=== PATIENT | male | born 1950 | race African-American/Black ===

== ENCOUNTER 2019-06-16 17:41 | Emergency (ER) | payer OTHER, MEDICARE ==
[2019-06-16 18:55] VITALS: RESP 18; TEMP 97.5
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
[2019-06-16 20:09] VITALS: BP 169/86; PULSE 89
--- NOTE | 2019-06-16 20:19 | XR ---
EXAMINATION TYPE: XR chest 2V DATE OF EXAM: 06/16/2019 COMPARISON: NONE HISTORY: Chest pain TECHNIQUE: FINDINGS: Heart and mediastinum are normal. Lungs are clear of infiltrate. There is no heart failure. There are no hilar masses. Costophrenic angles are clear. Bony thorax is intact. IMPRESSION: No active cardiopulmonary disease.
--- NOTE | 2019-06-16 20:21 | XR ---
EXAMINATION TYPE: XR foot complete RT DATE OF EXAM: 06/16/2019 COMPARISON: NONE HISTORY: Foot pain TECHNIQUE: 3 views FINDINGS: Metatarsals are intact. I see no fracture nor dislocation. Joint spaces are normal. There i s small plantar calcaneal spur. IMPRESSION: Negative right foot exam.
[2019-06-16] MEDS ORDERED: IBUPROFEN 800 MG TAB PO STA (20:46)
== END 2019-06-16 21:03 | disposition home or self-care (01) ==
LOC: EC 17:41
DX: S20.219A Contusion of unspecified front wall of thorax, initial encounter (principal); S90.31XA Contusion of right foot, initial encounter; F17.200 Nicotine dependence, unspecified, uncomplicated; R40.2410 Glasgow coma scale score 13-15, unspecified time; Z88.8 Allergy status to other drugs, medicaments and biological substances; Z98.890 Other specified postprocedural states; V47.5XXA Car driver injured in collision with fixed or stationary object in traffic accident, initial encounter; Y92.410 Unspecified street and highway as the place of occurrence of the external cause
CPT/HCPCS: 71046; 99284

== ENCOUNTER 2019-06-17 21:54 | Emergency (ER) | payer MEDICARE, OTHER ==
[2019-06-17] MEDS ORDERED: LORazepam 2 MG/ML INJ IM STA (22:52)
--- NOTE | 2019-06-17 22:54 | ED ---
Psych HPI <Jordan Hansen - Last Filed: 06/18/19 03:20> - General Source: patient, police, RN notes reviewed, old records reviewed Mode of arrival: ambulatory Limitations: altered mental status - History of Present Illness MD Complaint: altered mental status -: unknown Associated Psychiatric Symptoms: racing thoughts History of same: Yes Quality: constant, getting worse Improves With: medication (Patient is not taking his medications) Worsens With: none Context: not taking psychiatric medications Associated Symptoms: denies other symptoms Treatments Prior to Arrival: placed on mental health hold <Uri Singh - Last Filed: 06/20/19 00:10> - General Chief Complaint: Psychiatric Symptoms 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 Patient is unable to give accurate history currently. History obtained from EMS as well as PD and patient's chart (Uri Singh) - Related Data Home Medications Medication Instructions Recorded Confirmed Benztropine Mesylate [Cogentin] 1 mg PO BID 06/18/19 06/18/19 Fluphenazine HCl [fluPHENAZine HCL] 10 mg PO DAILY 06/18/19 06/18/19 Losartan [Cozaar] 50 mg PO DAILY 06/18/19 06/18/19 Metoprolol Tartrate [Lopressor] 25 mg PO DAILY 06/18/19 06/18/19 Nicotine Polacrilex [Nicotine Gum] 4 mg BUCCAL DIRECTED PRN 06/18/19 06/18/19 QUEtiapine [SEROquel] 400 mg PO HS 06/18/19 06/18/19 amLODIPine [Norvasc] 10 mg PO DAILY 06/18/19 06/18/19 Allergies Allergy/AdvReac Type Severity Reaction Status Date / Time chlorpromazine Allergy Hallucinati Verified 06/18/19 11:20 [From Thorazine] ons molindone [From Moban] Allergy Rash/Hives Verified 06/18/19 11:20 Review of Systems ROS Other: All systems not noted in ROS Statement are negative. <Jordan Hansen - Last Filed: 06/18/19 03:20> ROS Other: All systems not noted in ROS Statement are negative. <Uri Singh - Last Filed: 06/20/19 00:10> ROS Statement: Those systems with pertinent positive or pertinent negative responses have been documented in the HPI. Past Medical History Past Medical History: Hypertension History of Any Multi-Drug Resistant Organisms: None Reported Past Surgical History: Heart Catheterization Past Psychological History: No Psychological Hx Reported Smoking Status: Current every day smoker Past Alcohol Use History: None Reported Past Drug Use History: None Reported <Uri Singh - Last Filed: 06/20/19 00:10> General Exam Limitations: altered mental status General appearance: alert, in no apparent distress Head exam: Present: atraumatic, normocephalic, normal inspection Eye exam: Present: normal appearance, PERRL, EOMI. Absent: scleral icterus, conjunctival injection, periorbital swelling ENT exam: Present: normal exam, mucous membranes moist Neck exam: Present: normal inspection. Absent: tenderness, meningismus, lymphadenopathy Respiratory exam: Present: normal lung sounds bilaterally. Absent: respiratory distress, wheezes, rales, rhonchi, stridor Cardiovascular Exam: Present: regular rate, normal rhythm, normal heart sounds. Absent: systolic murmur, diastolic murmur, rubs, gallop, clicks GI/Abdominal exam: Present: soft, normal bowel sounds. Absent: distended, tenderness, guarding, rebound, rigid Extremities exam: Present: normal inspection, full ROM, normal capillary refill. Absent: tenderness, pedal edema, joint swelling, calf tenderness Back exam: Present: normal inspection Neurological exam: Present: alert, oriented X3, CN II-XII intact Psychiatric exam: Present: normal affect, normal mood Skin exam: Present: warm, dry, intact, normal color. Absent: rash <Uri Singh - Last Filed: 06/20/19 00:10> Course <Uri Singh - Last Filed: 06/20/19 00:10> Vital Signs 06/17/19 06/18/19 06/18/19 22:03 02:30 09:00 Temperature 98.1 F 98.0 F Pulse Rate 79 63 60 Respiratory 18 16 18 Rate Blood Pressure 179/97 150/85 152/79 O2 Sat by Pulse 100 96 99 Oximetry 06/18/19 06/18/19 12:21 18:04 Temperature 98.2 F 98.4 F Pulse Rate 67 68 Respiratory 18 18 Rate Blood Pressure 160/84 160/84 O2 Sat by Pulse 98 98 Oximetry - Reevaluation(s) Reevaluation #1: 06/17/19 22:54 Medical records reviewed including ER visit yesterday (Uri Singh) Reevaluation #2: 06/17/19 22:54 Patient's medical clear for psychiatric evaluation (Uir Singh) Medical Decision Making - Lab Data Result diagrams: 06/18/19 02:27 06/18/19 02:27 <Jordan Hansen - Last Filed: 06/18/19 03:20> - Lab Data Result diagrams: 06/18/19 02:27 06/18/19 02:27 <Uri Singh - Last Filed: 06/20/19 00:10> - Medical Decision Making I did see the patient for purposes of following the clinical certification (Jordan Hansen) - Lab Data Lab Results 06/18/19 06/18/19 06/18/19 Range/Units 02:27 02:27 02:27 WBC 11.0 H (3.8-10.6) k/uL RBC 4.26 L (4.30-5.90) m/uL Hgb 13.2 (13.0-17.5) gm/dL Hct 40.4 (39.0-53.0) % MCV 94.9 (80.0-100.0) fL MCH 31.0 (25.0-35.0) pg MCHC 32.7 (31.0-37.0) g/dL RDW 13.6 (11.5-15.5) % Plt Count 190 (150-450) k/uL Neutrophils % 68 % Lymphocytes % 24 % Monocytes % 3 % Eosinophils % 4 % Basophils % 0 % Neutrophils # 7.5 (1.3-7.7) k/uL Lymphocytes # 2.6 (1.0-4.8) k/uL Monocytes # 0.3 (0-1.0) k/uL Eosinophils # 0.4 (0-0.7) k/uL Basophils # 0.0 (0-0.2) k/uL Sodium 137 (137-145) mmol/L Potassium 4.1 (3.5-5.1) mmol/L Chloride 107 (98-107) mmol/L Carbon Dioxide 24 (22-30) mmol/L Anion Gap 6 mmol/L BUN 14 (9-20) mg/dL Creatinine 0.82 (0.66-1.25) mg/dL Est GFR (CKD-EPI)AfAm >90 (>60 ml/min/1.73 sqM) Est GFR (CKD-EPI)NonAf >90 (>60 ml/min/1.73 sqM) Glucose 78 (74-99) mg/dL Calcium 9.5 (8.4-10.2) mg/dL Urine Opiates Screen Not Detected (NotDetected) Ur Oxycodone Screen Not Detected (NotDetected) Urine Methadone Screen Not Detected (NotDetected) Ur Propoxyphene Screen Not Detected (NotDetected) Ur Barbiturates Screen Not Detected (NotDetected) U Tricyclic Antidepress Not Detected (NotDetected) Ur Phencyclidine Scrn Not Detected (NotDetected) Ur Amphetamines Screen Not Detected (NotDetected) U Methamphetamines Scrn Not Detected (NotDetected) U Benzodiazepines Scrn Not Detected (NotDetected) Urine Cocaine Screen Not Detected (NotDetected) U Marijuana (THC) Screen Detected H (NotDetected) Serum Alcohol <10 mg/dL Disposition <Jordan Hansen - Last Filed: 06/18/19 03:20> Is patient prescribed a controlled substance at d/c from ED?: No <Uri Singh - Last Filed: 06/20/19 00:10> Clinical Impression: Acute anxiety, Depression, Suicidal ideation Disposition: TRANSFER TO PSYCH HOSP/UNIT Condition: Fair Referrals: Leonard Herndon MD [Primary Care Provider] - 1-2 days
[2019-06-17] MEDS ORDERED: diphenhydrAMINE 50 MG CAP PO STA (23:31)
[2019-06-18 02:42] LABS: Basophils % (A) 0 %; Eosinophils # (A) 0.4 k/uL (0-0.7); Eosinophils % (A) 4 %; HCT 40.4 % (39.0-53.0); HGB 13.2 gm/dL (13.0-17.5); Lymphocytes # (A) 2.6 k/uL (1.0-4.8); Lymphocytes % (A) 24 %; MCHC 32.7 g/dL (31.0-37.0); MCV 94.9 fL (80.0-100.0); Mean Platelet Volume 7.9; Monocytes # (A) 0.3 k/uL (0-1.0); Monocytes % (A) 3 %; Neutrophils # (A) 7.5 k/uL (1.3-7.7); Neutrophils % (A) 68 %; Platelet Count 190 k/uL (150-450); RBC 4.26 m/uL (4.30-5.90); RDW 13.6 % (11.5-15.5)
[2019-06-18 02:56] LABS: African American GFR (CKD) >90 (>60 ml/min/1.73 sqM); Alcohol <10 mg/dL; Anion Gap 6 mmol/L; Blood Urea Nitrogen 14 mg/dL (9-20); Calcium 9.5 mg/dL (8.4-10.2); Carbon Dioxide 24 mmol/L (22-30); Chloride 107 mmol/L (98-107); Glucose 78 mg/dL (74-99); Non-African American GFR(CKD) >90 (>60 ml/min/1.73 sqM); Potassium 4.1 mmol/L (3.5-5.1); Sodium 137 mmol/L (137-145)
[2019-06-18 02:58] LABS: Amphetamine Screen,Urine Not Detected (NotDetected); Benzodiazepines Screen,Urine Not Detected (NotDetected); Cocaine Screen,Urine Not Detected (NotDetected); Methadone Screen, Urine Not Detected (NotDetected); Opiate Screen,Urine Not Detected (NotDetected); Phencyclidine Screen,Urine Not Detected (NotDetected); Tricyclic Antidepressant,Urine Not Detected (NotDetected)
[2019-06-18 02:59] LABS: Barbiturate Screen,Urine Not Detected (NotDetected); Oxycodone Screen, Urine Not Detected (NotDetected); Urn Cannabinoid Scrn Detected (NotDetected)
[2019-06-18] MEDS ORDERED: LORazepam 2 MG/ML INJ IV STA ×2 (03:54→07:21)
[2019-06-18] MEDS ORDERED: HALOPERIDOL LACTATE 5 MG/ML 1 ML VIAL IM STA (04:18)
[2019-06-18 09:04] VITALS: RESP 18
[2019-06-18 12:23] VITALS: BP 160/84
[2019-06-18] MEDS ORDERED: NICOTINE 14MG/24HR PATCH TRANSDERM STA (12:24)
[2019-06-18 18:05] VITALS: PULSE 68; TEMP 98.4
== END 2019-06-18 18:04 ==
LOC: EC 21:54
DX: F32.9 Major depressive disorder, single episode, unspecified (principal); R45.851 Suicidal ideations; F41.9 Anxiety disorder, unspecified; I10 Essential (primary) hypertension; F17.200 Nicotine dependence, unspecified, uncomplicated; Z79.899 Other long term (current) drug therapy; Z88.8 Allergy status to other drugs, medicaments and biological substances; Z95.1 Presence of aortocoronary bypass graft
CPT/HCPCS: 82075; 36415; 80048; 85025; 80306; 99285; 96374; 96372 ×2; G0480; S4990; J2060 ×2; J1630; 80320

== ENCOUNTER 2019-12-21 20:25 | Inpatient (IN) | payer MEDICARE, OTHER ==
--- NOTE | 2019-12-21 20:41 | ED ---
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 please excuse any grammatical, word or spelling errors. This patient was cared for during a federal and state declared state of emergen cy secondary to Covid 19 Chief Complaint: 69-year-old male presents for psychiatric evaluation. History of Present Illness: 69-year-old male who has past medical history of hypertension. He is brought in here by law enforcement. There was a pickup order that was repaired by family members. According to hand picker order patient has been displaying aggressive behavior. He is also been refusing to take his medications and take care of himself. According to hand picker order patient hasn't been showering. He hasn't been eating. Patient is uncooperative and unwilling to provide history present illness. Continually states that he disagrees with what is stated on the pickup order. Patient has no complaints at this time. The ROS documented in this emergency department record has been reviewed and confirmed by me. Those systems with pertinent positive or negative responses have been documented in the HPI. All other systems are other negative and/or noncontributory. PHYSICAL EXAM: General Impression: Alert and oriented x3, speaking w loud voice, aggressive HEENT: Normocephalic atraumatic, extra-ocular movements intact, pupils equal and reactive to light bilaterally, mucous membranes moist. Cardiovascular: Heart regular rate and rhythm Chest: Able to complete full sentences, no retractions, no tachypnea Abdomen: abdomen soft, non-tender, non-distended, no organomegaly Musculoskeletal: Pulses present and equal in all extremities, no peripheral edema Motor: no focal deficits noted Neurological: CN II-XII grossly intact, no focal motor or sensory deficits noted Skin: Intact with no visualized rashes Psych: Normal affect and mood ED course: 69-year-old male presents with abnormal behavior. Patient has not been taking care of himself. Patient is brought in by law enforcement for psychiatric evaluation. Vital signs upon arrival are within acceptable limits. CBC is unremarkable. Metabolic panel shows non-gap acidosis. Patient care signed out to Dr. Armstrong. EKG interpretation: Ventricular rate 85, sinus rhythm, IN interval 226, QRS 86, QTC 421. No IN prolongation, no QTC prolongation, no ST or T-wave changes noted. Overall, this EKG is unremarkable (Gold Fenton) - Related Data Home Medications Medication Instructions Recorded Confirmed Losartan [Cozaar] 50 mg PO DAILY 06/18/19 12/21/19 Metoprolol Tartrate [Lopressor] 25 mg PO DAILY 06/18/19 12/21/19 amLODIPine [Norvasc] 10 mg PO DAILY 06/18/19 12/21/19 [place] Carbonate 600 mg PO BID 12/21/19 12/21/19 Allergies Allergy/AdvReac Type Severity Reaction Status Date / Time chlorpromazine Allergy Hallucinati Verified 12/21/19 22:17 [From Thorazine] ons molindone [From Moban] Allergy Rash/Hives Verified 12/21/19 22:17 Review of Systems ROS Other: All systems not noted in ROS Statement are negative. <Gold Fenton - Last Filed: 12/21/19 22:34> ROS Other: All systems not noted in ROS Statement are negative. <Marisol Armstrong - Last Filed: 12/23/19 05:58> ROS Statement: Those systems with pertinent positive or pertinent negative responses have been documented in the HPI. Past Medical History Past Medical History: Hypertension History of Any Multi-Drug Resistant Organisms: None Reported Past Surgical History: Heart Catheterization Past Psychological History: No Psychological Hx Reported Past Alcohol Use History: None Reported Past Drug Use History: None Reported <Gold Fenton - Last Filed: 12/21/19 22:34> - Past Family History Family Family Medical History: Unable to Obtain <Marisol Armstrong - Last Filed: 12/23/19 05:58> Course Vital Signs 12/21/19 12/22/19 12/22/19 20:28 01:53 06:50 Temperature 98.0 F Pulse Rate 83 70 66 Respiratory 18 18 18 Rate Blood Pressure 153/91 159/82 118/60 O2 Sat by Pulse 99 95 98 Oximetry 12/22/19 11:16 Temperature Pulse Rate 82 Respiratory 16 Rate Blood Pressure 155/95 O2 Sat by Pulse 99 Oximetry Medical Decision Making - Lab Data Result diagrams: 12/21/19 21:30 12/21/19 20:57 <Gold Fenton - Last Filed: 12/21/19 22:34> - Lab Data Result diagrams: 12/21/19 21:30 12/21/19 20:57 <Marisol Armstrong - Last Filed: 12/23/19 05:58> - Medical Decision Making Patient care was signed out to ok overnight, patient was agitated in the evening and received PO ativan, he then slept comfortably overnight. His oral hypertensives and a normal diet were ordered. Patient pending transfer to [facility] for further psychiatric care. (Marisol Armstrong) - Lab Data Lab Results 12/21/19 12/21/19 12/21/19 Range/Units 20:57 20:57 21:30 WBC 10.2 (3.8-10.6) k/uL RBC 4.39 (4.30-5.90) m/uL Hgb 13.7 (13.0-17.5) gm/dL Hct 42.4 (39.0-53.0) % MCV 96.6 (80.0-100.0) fL MCH 31.2 (25.0-35.0) pg MCHC 32.3 (31.0-37.0) g/dL RDW 13.4 (11.5-15.5) % Plt Count 194 (150-450) k/uL Neutrophils % 63 % Lymphocytes % 28 % Monocytes % 3 % Eosinophils % 4 % Basophils % 0 % Neutrophils # 6.5 (1.3-7.7) k/uL Lymphocytes # 2.8 (1.0-4.8) k/uL Monocytes # 0.3 (0-1.0) k/uL Eosinophils # 0.4 (0-0.7) k/uL Basophils # 0.0 (0-0.2) k/uL Sodium 137 (137-145) mmol/L Potassium 3.6 (3.5-5.1) mmol/L Chloride 109 H (98-107) mmol/L Carbon Dioxide 18 L (22-30) mmol/L Anion Gap 10 mmol/L BUN 8 L (9-20) mg/dL Creatinine 0.74 (0.66-1.25) mg/dL Est GFR (CKD-EPI)AfAm >90 (>60 ml/min/1.73 sqM) Est GFR (CKD-EPI)NonAf >90 (>60 ml/min/1.73 sqM) Glucose 110 H (74-99) mg/dL Calcium 9.7 (8.4-10.2) mg/dL Urine Opiates Screen Negative (Negative) ng/mL Urine Methadone Screen Negative (Negative) ng/mL Ur Propoxyphene Screen Negative (Negative) ng/mL Urine Barbiturates Negative (Negative) ng/mL Ur Phencyclidine Scrn Negative (Negative) ng/mL Ur Amphetamine Screen Negative (Negative) ng/mL U Benzodiazepines Scrn Negative (Negative) ng/mL Urine Cocaine Screen Negative (Negative) ng/mL U Cannabinoids Screen Negative (Negative) ng/mL Urine Alcohol Negative (Negative) mg/dL Disposition <Gold Fenton D - Last Filed: 12/21/19 22:34> Is patient prescribed a controlled substance at d/c from ED?: No <Marisol Armstrong P - Last Filed: 12/23/19 05:58> Clinical Impression: Psychosis Disposition: TRANSFER TO PSYCH HOSP/UNIT Condition: Stable
[2019-12-21 21:25] LABS: African American GFR (CKD) >90 (>60 ml/min/1.73 sqM); Anion Gap 10 mmol/L; Blood Urea Nitrogen 8 mg/dL (9-20); Calcium 9.7 mg/dL (8.4-10.2); Carbon Dioxide 18 mmol/L (22-30); Chloride 109 mmol/L (98-107); Glucose 110 mg/dL (74-99); Non-African American GFR(CKD) >90 (>60 ml/min/1.73 sqM); Potassium 3.6 mmol/L (3.5-5.1); Sodium 137 mmol/L (137-145)
[2019-12-21 21:39] LABS: Basophils % (A) 0 %; Eosinophils # (A) 0.4 k/uL (0-0.7); Eosinophils % (A) 4 %; HCT 42.4 % (39.0-53.0); HGB 13.7 gm/dL (13.0-17.5); Lymphocytes # (A) 2.8 k/uL (1.0-4.8); Lymphocytes % (A) 28 %; MCH 31.2 pg (25.0-35.0); MCHC 32.3 g/dL (31.0-37.0); MCV 96.6 fL (80.0-100.0); Mean Platelet Volume 7.4; Monocytes # (A) 0.3 k/uL (0-1.0); Monocytes % (A) 3 %; Neutrophils # (A) 6.5 k/uL (1.3-7.7); Neutrophils % (A) 63 %; Platelet Count 194 k/uL (150-450); RBC 4.39 m/uL (4.30-5.90); RDW 13.4 % (11.5-15.5); WBC 10.2 k/uL (3.8-10.6)
--- NOTE | 2019-12-21 22:55 | CT ---
EXAMINATION TYPE: CT brain wo con DATE OF EXAM: 12/21/2019 COMPARISON: None HISTORY: ams CT DLP: 1276.4 mGycm Automated exposure control for dose reduction was used. Exam performed without contrast. Ventricles have normal size. There is no mass effect nor midline shift. There is no sign of intracran ial hemorrhage. The calvarium is intact. There is mild cerebral atrophy. Sella turcica appears normal . IMPRESSION: Mild atrophy. No acute intracranial abnormality.
[2019-12-22] MEDS ORDERED: LORazepam 1 MG TAB PO STA ×2 (01:13→10:20)
[2019-12-22] MEDS: LOSARTAN 50 MG TAB PO SCH (08:00)
[2019-12-22] MEDS: METOPROLOL TARTRATE 25 MG TAB PO SCH (08:01)
[2019-12-22] MEDS: amLODIPine 10 MG TAB PO SCH (08:01)
[2019-12-22] MEDS ORDERED: ZIPRASIDONE 20 MG VIAL IM STA (10:58)
[2019-12-22 11:42] LABS: Urine Alcohol Negative (Negative); Urine Barbiturate Negative (Negative); Urine Cocaine Negative (Negative); Urine Methadone Negative (Negative); Urine Opiates Negative (Negative); Urine Phencyclidine Negative (Negative)
[2019-12-22] MEDS ORDERED: ZIPRASIDONE 20 MG VIAL IM PRN (21:14)
[2019-12-22] MEDS ORDERED: MAGNESIUM HYDROXIDE 2,400 MG/10 ML CUP PO PRN (21:14)
[2019-12-22] MEDS ORDERED: MAG HYDROX/AL HYDROX/SIMETH 30 ML CUP PO PRN (21:14)
[2019-12-22] MEDS ORDERED: LORazepam 1 MG TAB PO PRN (21:14)
[2019-12-22] MEDS ORDERED: ACETAMINOPHEN TAB 325 MG TAB PO PRN (21:14)
[2019-12-22] MEDS ORDERED: LORazepam 2 MG/ML INJ IM PRN (21:17)
--- NOTE | 2019-12-22 23:42 | P.MDCNMH ---
History of Present Illness H&P Date: 12/22/19 Chief Complaint: medical evaluation 69-year-old male with hypertension Patient was brought to the patient by his family police brought the patient and due to being uncooperative not taking his medication poor hygiene status not showering not taking care of himself. He was also reports to be showing aggressive behavior Patient is very hard of hearing. He told me that he has hypertension he takes his medication he was pleasant and cooperative during the interview however he didn't say much he just answered direct questions denying any physical complaints at this time he kept his head down did not make any eye contact with me during the whole interview Review of Systems ROS unobtainable: due to mental status Past Medical History Past Medical History: Hypertension History of Any Multi-Drug Resistant Organisms: None Reported Past Surgical History: Heart Catheterization Past Psychological History: No Psychological Hx Reported Past Alcohol Use History: None Reported Past Drug Use History: None Reported - Past Family History Family Family Medical History: Unable to Obtain Medications and Allergies Home Medications Medication Instructions Recorded Confirmed Type Losartan [Cozaar] 50 mg PO DAILY 06/18/19 12/21/19 History Metoprolol Tartrate [Lopressor] 25 mg PO DAILY 06/18/19 12/21/19 History amLODIPine [Norvasc] 10 mg PO DAILY 06/18/19 12/21/19 History [place] Carbonate 600 mg PO BID 12/21/19 12/21/19 History Allergies Allergy/AdvReac Type Severity Reaction Status Date / Time chlorpromazine Allergy Hallucinati Verified 12/21/19 22:17 [From Thorazine] ons molindone [From Moban] Allergy Rash/Hives Verified 12/21/19 22:17 Physical Exam Vitals: Vital Signs Temp Pulse Pulse Resp BP BP Pulse Ox 12/22/19 22:28 97.9 F 94 18 109/86 98 12/22/19 11:16 82 16 155/95 99 12/22/19 06:50 66 18 118/60 98 12/22/19 01:53 70 18 159/82 95 Intake and Output 12/22/19 12/22/19 12/23/19 14:59 22:59 06:59 Other: Weight 81.732 kg Constitutional: No acute distress, patient is withdrawn avoids eye contact answers questions briefly with yes and no Eyes: Anicteric sclerae, moist conjunctiva, Pupils equal round reactive to light ENMT: NC/AT Oropharynx clear, no erythema, or exudates Neck: Supple, FROM, no masses, or JVD No carotid bruits No thyromegaly Lungs: Decreased breath sounds throughout, possible poor effort Clear to percussion Normal respiratory effort, no accessory muscle use Cardiovascular: Heart regular in rate and rhythm, No murmurs, gallops, or rubs No peripheral edema Abdominal: Soft Nontender, no guarding, rebound or rigidity Abdomen moving with respiration Normoactive bowel sounds No hepatomegaly, No splenomegaly No palpable mass No abdominal wall hernia noted Skin: Normal temperature, tone, texture, turgor No induration No subcutaneous nodules No rash, lesions No ulcers Extremities: Clubbing of bilateral fingers No digital cyanosis Pedal pulses intact and symmetrical Radial pulses intact and symmetrical No calf tenderness Psychiatric: Alert and oriented to person, Depressed affect, withdrawn avoids eye contact Poor judgement Neuro limited neuro exam patient not cooperating, however patient is walking and moving all his extremities purposefully Lymphatics: no palpable cervical lymph nodes Cranial Nerve Examination - Cranial Nerves Cranial Nerve II- Optic: Intact Cranial Nerve III- Oculomotor: Intact Cranial Nerve IV- Trochlear: Intact Cranial Nerve V- Trigeminal: Intact Cranial Nerve - Abducens: Intact Cranial Nerve VII- Facial: Intact Cranial Nerve VIII- Auditory: Intact Cranial Nerve IX- Glossopharyngeal: Intact Cranial Nerve X- Vagus: Intact Cranial Nerve XI- Accessory: Intact Cranial Nerve XII- Hypoglossal: Intact Results CBC & Chem 7: 12/21/19 21:30 12/21/19 20:57 Assessment and Plan Assessment: Aggressive behavior Medical noncompliance Management per psych Hypertension controlled Resume home meds Labs reviewed Thank you for allowing us to participate in the care of this patient. We will follow peripherally. Do not hesitate to contact us with questions. Someone can be reached from the [facility] hospitalist group at all hours of the day at [phone].
[2019-12-23] MEDS: NICOTINE 14MG/24HR PATCH TRANSDERM SCH ×2 (05:58→09:25)
[2019-12-23] MEDS: LOSARTAN 50 MG TAB PO SCH (09:25)
[2019-12-23] MEDS: amLODIPine 10 MG TAB PO SCH (09:25)
[2019-12-23] MEDS: METOPROLOL TARTRATE 25 MG TAB PO SCH (09:25)
[2019-12-23 09:31] LABS: Basophils # (A) 0.1 k/uL (0-0.2); Basophils % (A) 1 %; Eosinophils # (A) 0.3 k/uL (0-0.7); Eosinophils % (A) 3 %; HCT 43.5 % (39.0-53.0); HGB 13.8 gm/dL (13.0-17.5); Lymphocytes % (A) 20 %; MCH 31.6 pg (25.0-35.0); MCHC 31.8 g/dL (31.0-37.0); MCV 99.3 fL (80.0-100.0); Mean Platelet Volume 7.7; Monocytes # (A) 0.3 k/uL (0-1.0); Monocytes % (A) 3 %; Neutrophils # (A) 7.5 k/uL (1.3-7.7); Neutrophils % (A) 73 %; Platelet Count 210 k/uL (150-450); RBC 4.38 m/uL (4.30-5.90); RDW 13.6 % (11.5-15.5); WBC 10.3 k/uL (3.8-10.6)
[2019-12-23 09:46] LABS: Cholesterol 172 mg/dL (<200); HDL Cholesterol 57 mg/dL (40-60); LDL Cholesterol,Calculated 100 mg/dL (0-99); Triglycerides 74 mg/dL (<150)
[2019-12-23 10:02] LABS: ALT 17 U/L (4-49); AST 27 U/L (17-59); African American GFR (CKD) >90 (>60 ml/min/1.73 sqM); Albumin 4.3 g/dL (3.5-5.0); Alkaline Phosphatase 82 U/L (38-126); Anion Gap 6 mmol/L; Blood Urea Nitrogen 6 mg/dL (9-20); Calcium 9.4 mg/dL (8.4-10.2); Carbon Dioxide 26 mmol/L (22-30); Chloride 108 mmol/L (98-107); Glucose 119 mg/dL (74-99); Lithium 0.2 mmol/L; Non-African American GFR(CKD) >90 (>60 ml/min/1.73 sqM); Potassium 3.5 mmol/L (3.5-5.1); Sodium 140 mmol/L (137-145); Total Bilirubin 0.4 mg/dL (0.2-1.3); Total Protein 7.2 g/dL (6.3-8.2)
--- NOTE | 2019-12-23 10:47 | HP ---
HISTORY AND PHYSICAL DATE OF ADMISSION: 12/22/2019 DATE OF EVALUATION: 12/23/2019 Most of the information is from medical record as the patient is very poor historian. IDENTIFYING DATA: The patient is a 69, widowAfrican Fijian male who is currently living with his daughter and her . He has been receiving social security income for more than 20 years Patient was brought to the ER by the law enforcement on pickup order. HISTORY OF PRESENT ILLNESS: The patient came to the office. He was very loud, not cooperative. He stated that he needs to be discharged as soon as possible. I tried to read all of the allegations on the petition filed by his daughter saying that the patient is not taking his medication. He is verbally aggressive. He is not taking care of his basic hygiene as he stopped showering and not changing his clothes. He does not eat unless she does bring him the food. He has been cursing more than usual and he has been noncompliant with his psychotropic medication. Patient denied any of this allegation saying "I am not crazy. If anyone said this, especially you, you are from different planet." The patient was very disorganized, very loud, saying that he has a lot of children, but the government keeping them away from him, then he starts saying that someone gave him barbiturate to brainwash him and currently he is feeling dizzy and lightheaded and he cannot think straight. Patient is poor historian and most of his answers "I don't remember" or he denied. Patient is uncooperative and unwilling to provide any past history. PAST PSYCHIATRIC HISTORY: When I did ask him about any previous inpatient or outpatient treatment for mental illness, he said "I told you I am not crazy. Whoever said this it is from different planet." From the record, it seems to me that the patient was on lithium 600 twice a day, but he is noncompliant with it. SUBSTANCE ABUSE HISTORY: He stated that he was drinking alcohol and smoking marijuana, but "this is way back in my past and you don't need to talk about my past." FAMILY PSYCHIATRIC HISTORY: He stated that everyone in the family was drinking. MEDICAL HISTORY: Hypertension. History of cardiac catheterization. ALLERGY: CHLORPROMAZINE or THORAZINE and MOBAN His current vital sign, temperature 98.0, pulse 66, respiration 18, blood pressure 118/60. Patient did require a couple of p.r.n. Geodon and Ativan when he was in the ER and even when he came to the unit, due to his agitation and aggressive behavior. BRIEF SOCIAL HISTORY: The patient was born and raised in [place]. He stated that he went to [employer] after high school and he stayed in the [place] for 1-1/2 years. 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 Patient stated that he has 4 half-sibling, He was 3 times. The 1st two marriages ended by divorce. Third marriage, she overdosed on her medication in May of 2015. When I asked him how many children he has, he said "I have one daughter, I am living with her, but maybe I have 6 other children, maybe 4 or 5 sons, but I don't know why the government keeps them away from me." MENTAL STATUS EXAMINATION: The patient is wearing hospital gown. He is missing most of his teeth. He does not have dentures. He was very loud and very disorganized. His gait is normal and steady. At times, he has good eye contact. Other times, he was looking at the floor and holding his head saying "I don't want to hear any of this question." The patient was not cooperative and he could not answer most of the questions, very paranoid, suspicious, demanding to be discharged. He denied any suicidal or homicidal ideation. When I asked him about voices, he said "I am sure you are from different planet." When I did try to test his memory and ask him if he has memory problem, he said "Not me, my brain is working 100%." His insight and judgment are totally impaired. INTELLECTUAL FUNCTION: Average STRENGTHS AND WEAKNESSES: Patient has income, good support system as he is living with his daughter. His weakness : he does not have any insight to his mental illness and poor compliance with medications . ASSESSMENT: Bipolar disorder, manic with psychotic features. Rule out schizoaffective disorder, bipolar type. PLAN: The patient was admitted to the mental health unit on involuntary basis. I did fill physician certificate. Currently, he will continue on p.r.n. Geodon and Ativan until the probate court. Patient refused to give me permission to contact his daughter to get more information. Will ask medical doctor for medical consultation. The patient will be encouraged to attend group therapy as much as he can tolerate. plant nursery worker onboard for collateral information and for post plan discharge. MMODL / IJN: [id number] / MTDD
[2019-12-23 18:31] LABS: Hemoglobin A1C 5.7 % (4.0-6.0)
[2019-12-24] MEDS: LOSARTAN 50 MG TAB PO SCH (09:11)
[2019-12-24] MEDS: NICOTINE 14MG/24HR PATCH TRANSDERM SCH (09:11)
[2019-12-24] MEDS: METOPROLOL TARTRATE 25 MG TAB PO SCH (09:11)
[2019-12-24] MEDS: amLODIPine 10 MG TAB PO SCH (09:11)
--- NOTE | 2019-12-24 12:21 | P.PN ---
Progress Note - Text Progress Note Date: 12/24/19 I did review medical records ,I discussed case in team meeting ,I did interview patient who was laying in bed and refused to come to office I reviewed medical consult: :Assessment: ((Aggressive behavior Medical noncompliance Management per psych Hypertension controlled Resume home meds))) I reviewed SW notes((t/c to pt's daughter Yoon, as she is his temporary guardian. See PSA for full details. Per rin, pt has a hx of mental illness and has been hospitalized several times. Pt stopped his rx a few weeks ago, but prior to that per rin he was "paying bills, driving, taking care of the house". She reports he did well on Seroquel and Smithwick but stopped because he reported they made him sick. She also reports pt is not hard of hearing and is likely being difficult and loud because he doesn't want to be here. She is his only support and confirmed she lives with him and he can return home upon dc once stable. )) According to SW assessment :patient last hospitalization was in May 2019 at [facility] for 18 days Interim history: Patient stated that he could not sleep last night "My mind was fast"delusional that IM Geodon and Ativan he received in ER "Cracked my brain ,I can not think",was mumbling to self at times then kept saying "My daughter lied because I was taking my medications but my legs were bouncing ,it was strong med",patient was loud,intrusive,paranoia and suspicious Mental status exam: Patient is dressed in hospital gown ,unkept,trying to be cooperative ,loud ,intrusive ,hyperverbal ,jumping from one topic to another ,loose of association ,at times intrusive, ,labile and irritable ,stated mood "frustrated because I am here",paranoia,suspicious ,lot of somatic delusion ,denies any hallucination ,denies any suicidal or homicidal ideation,his insight and judgment are impaired Clinical Problems:Schizoaffective,bipolar type,poor compliance with medications Plan: Continue inpatient. Patient has meeting with managing attorney today ,waiting for probate court ,continue PRN Geodon and Ativan for agitation,encourage participation in milieu
--- NOTE | 2019-12-25 08:36 | P.PN ---
Progress Note - Text Progress Note Date: 12/25/19 I did review medical records ,I discussed case in team meeting ,I did interview patient Patient met with estate planning attorney yesterday and signed deferral TODAY VITALS:Temp:99,P:72,BP:159/78 Participating in groups ,no behavior issue Interim history: Patient stated that he could not sleep last night "My mind was fast" ,he stated that he is trying to figure out life and what happening in the world,he does not understand why his daughter put him in hospital as he was inpatient "almost 3 weeks ""Maybe couple of months ago" Mental status exam: Patient is dressed in hospital gown ,unkept,trying to be cooperative ,loud ,intrusive ,hyperverbal ,jumping from one topic to another ,loose of association ,at times intrusive, ,labile and irritable ,stated mood "frustrated because I am here",paranoia,suspicious ,lot of somatic delusion ,denies any hallucination ,denies any suicidal or homicidal ideation,his insight and judgment are impaired Clinical Problems:Schizoaffective,bipolar type,poor compliance with medications Plan: Continue inpatient.will start Invega oral and planning to transition to long acting injection,[facility]
[2019-12-25] MEDS: METOPROLOL TARTRATE 25 MG TAB PO SCH (08:45)
[2019-12-25] MEDS: NICOTINE 14MG/24HR PATCH TRANSDERM SCH (08:45)
[2019-12-25] MEDS: amLODIPine 10 MG TAB PO SCH (08:45)
[2019-12-25] MEDS: LOSARTAN 50 MG TAB PO SCH (08:45)
[2019-12-25] MEDS: PALIPERIDONE 3 MG TAB.ER.24 PO SCH (20:59)
--- NOTE | 2019-12-26 09:07 | P.PN ---
Subjective Progress Note Date: 12/26/19 Principal diagnosis: palpitations See patient regarding palpitations. Patient seen and examined. He reports that he was laying flat in bed this morning and felt as though his heart was beating hard. He states he experienced this before when he is on psychotropic medications. He denies any overt chest pain, shortness of breath, nausea, or vomiting. He reports that he is feeling slightly off balance and dizzy today but he has had this before with psychotropic medications. He also report that he is "feeling less" in all extremities. However he is rubbing his left arm. He denies any significant cardiac history other than his blood pressure medications. He states he has not had difficulty or side effects from blood pressure medications in the past. He states he is feeling better now wants to go back to eating breakfast. Objective - Vital Signs Vital signs: Vital Signs Temp 98 F 12/26/19 06:39 Pulse 51 L 12/26/19 06:39 Resp 16 12/26/19 06:39 BP 117/64 12/26/19 06:39 Pulse Ox 98 12/22/19 22:28 - Exam General: non toxic, no distress, appears at stated age Derm: warm, dry Head: atraumatic, normocephalic, symmetric Eyes: EOMI, no lid lag, anicteric sclera Mouth: no lip lesion, mucus membranes moist Cardiovascular: S1S2 reg, no murmur, positive posterior tibial pulse bilateral and equal, + radial pulses bilateral and equal Lungs: CTA bilateral, no rhonchi, no rales , no accessory muscle use Abdominal: soft, nontender to palpation, no guarding, no appreciable organomegaly Ext: no gross muscle atrophy, no edema, no contractures Neuro: CN II-XI grossly intact, no focal neuro deficits Psych: Alert, oriented, flat affect but pressured speech - Labs CBC & Chem 7: 12/23/19 08:45 12/23/19 08:45 Assessment and Plan Assessment: Palpitations with bradycardia - EKG reviewed HR 49, no significant ST-T wave changes - Check Troponin - BP stable - Monitor HR q6 hours X 24 hours - Parameters added to metoprolol - likely related to new medications
[2019-12-26] MEDS: amLODIPine 10 MG TAB PO SCH (09:27)
[2019-12-26] MEDS: LOSARTAN 50 MG TAB PO SCH (09:27)
[2019-12-26] MEDS: NICOTINE 14MG/24HR PATCH TRANSDERM SCH (09:27)
[2019-12-26] MEDS: METOPROLOL TARTRATE 25 MG TAB PO SCH (09:28)
[2019-12-26] MEDS: PALIPERIDONE 3 MG TAB.ER.24 PO SCH (20:05)
--- NOTE | 2019-12-26 22:29 | P.PN ---
Progress Note - Text Progress Note Date: 12/26/19 Subjective: Patient was seen today as a cross coverage for Dr. Johnson. The patient was evaluated, chart reviewed, case discussed with the treatment team. Patient reports good sleep, and appetite was reported as "better". Patient has not been going to groups and other unit activities. The patient is compliant with his medications and denies any adverse reactions. Nursing report patient had episode of confusion and decreased heart rate earlier today and he was screaming for no apparent reason. Medical team evaluated the patient as HR reported was low 49. EKG showed normal HR and medical team continued monitoring the patient with no further changes of his treatment. Pt denies feeling depressed, hopeless or suicidal. He denies any hallucinations, PI or manic symptoms. Pt was loud and to some degree intrusive but he was fully oriented and coherent. Objective: Vitals has been reviewed. Mental status examination; Appearance: The patient appears stated age, adequately groomed and dressed, no specific features. Gait/posture: Normal gait, Normal arm swinging: No abnormal movements. Attitude and behavior: engaged, cooperative, eye contact. Motor activity: Normal psychomotor activity Speech: Normal rate, tone. Mood: Anxious Affect: Constricted Thought form: goal-directed, linear, coherent. Thought content: Non-delusional, denies suicidal thoughts, denies homicidal thoughts, denies intentions or plans. Perception: Denies any auditory or visual hallucinations Attention: No impairment. Orientation: Patient patient was fully oriented to time place person and situation. Insight: Patient has fair insight about his psychiatric disorder. Judgment: Patient has fair judgment about his psychiatric treatment. Assessment: Schizoaffective,bipolar type Plan: Continue inpatient level of care due to need for further stabilization. Precautions: Continue 15 minutes check for safety. Consider medical consultation if any acute medical issues arises. Appreciate medical team monitoring and treatment changes of HR. Provide the patient individual, group therapy, substance use disorder counseling to give better insight and learn coping skills. Medications: Invega for psychotic symptoms and as mood stabilizer. Continue PRN psych medications Continue non-psychiatric medications for management of co-morbid medical problems. Discharge patient to OUTPATIENT services upon a stabilization
[2019-12-27] MEDS: LOSARTAN 50 MG TAB PO SCH (09:26)
[2019-12-27] MEDS: NICOTINE 14MG/24HR PATCH TRANSDERM SCH (09:26)
[2019-12-27] MEDS: amLODIPine 10 MG TAB PO SCH (09:26)
[2019-12-27] MEDS: METOPROLOL TARTRATE 25 MG TAB PO SCH (09:28)
--- NOTE | 2019-12-27 13:04 | P.PN ---
Progress Note - Text Progress Note Date: 12/27/19 Subjective: Patient was seen today as a cross coverage for Dr. Johnson. The patient was evaluated, chart reviewed, case discussed with the treatment team. Patient reports continued to have good sleep, appetite, but he is not attending groups. He denies any depression, feeling hopeless, suicidal, or homicidal. Denies any hallucinations. Patient continued to be very superficial in his answers and to some degree guarded to discuss his symptoms in details. Patient refused to take Invega last night and he claimed medication caused him twitching, irritability, and nausea. Nursing report an episode of very agitation and screaming the night before last night after he took Invega. Patient reports most of the medications caused him side effects and only medicine he took in the past and he couldn't take it again his Navane. Objective: Vitals has been reviewed. Mental status examination; Appearance: The patient appears stated age, adequately groomed and dressed, no specific features. Gait/posture: Normal gait, Normal arm swinging: No abnormal movements. Attitude and behavior: engaged, cooperative, eye contact. Motor activity: Normal psychomotor activity Speech: Normal rate, tone. Mood: Anxious Affect: Constricted Thought form: goal-directed, linear, coherent. Thought content: Non-delusional, denies suicidal thoughts, denies homicidal thoughts, denies intentions or plans. Perception: Denies any auditory or visual hallucinations Attention: No impairment. Orientation: Patient patient was fully oriented to time place person and situation. Insight: Patient has fair insight about his psychiatric disorder. Judgment: Patient has fair judgment about his psychiatric treatment. Assessment: Schizoaffective,bipolar type Plan: Continue inpatient level of care due to need for further stabilization. Precautions: Continue 15 minutes check for safety. Consider medical consultation if any acute medical issues arises. Appreciate medical team monitoring and treatment changes of HR. Provide the patient individual, group therapy, substance use disorder counseling to give better insight and learn coping skills. Medications: Invega for psychotic symptoms and as mood stabilizer. She refused to take the medication. Patient prefers to discuss other antipsychotics with his primary psychiatrist. Continue PRN psych medications Continue non-psychiatric medications for management of co-morbid medical problems. Discharge patient to OUTPATIENT services upon a stabilization
[2019-12-27] MEDS: hydrOXYzine pamoate 25 MG CAP PO PRN (15:39)
[2019-12-27] MEDS: PALIPERIDONE 3 MG TAB.ER.24 PO SCH (20:22)
[2019-12-28] MEDS: NICOTINE 14MG/24HR PATCH TRANSDERM SCH (09:43)
[2019-12-28] MEDS: amLODIPine 10 MG TAB PO SCH (09:43)
[2019-12-28] MEDS: METOPROLOL TARTRATE 25 MG TAB PO SCH (09:43)
[2019-12-28] MEDS: LOSARTAN 50 MG TAB PO SCH (09:43)
--- NOTE | 2019-12-28 12:09 | P.PN ---
Progress Note - Text Progress Note Date: 12/28/19 I did review medical records ,I discussed case in team meeting ,I did interview patient Refused Oral Invega for last couple of nights TODAY VITALS:P"72,R:16,BP:140/69 Did cut in worker note on 12/25:: ((pt was heard yelling from his room this am approx 750. MHU tech reported that patient is c/o not bein dequan to get up out of bed and "feels strange from medication" assessed patient and reported to [facility] [address] [facility] [phone] From: Kim Ybarra RE: Zhou Boo 1950 Patient Location: 3M RM: 311-2 pt is complaining this morning of being unable to get out of bed r/t muscle stiffness, states its because of his medication last night, probably invega, this is new for him. pt is also reporting "talking funny". pt appears in no distress, is talking fine and wiggling in bed. vitals 140/72. I assumed it was a psych issue r/t medication, attempted to contact psychiatrist with no reply yet. pt is now stating his heart is pounding. agreeable to take 1mg ativan IM as it is a prn but wanted to check with you first.))) all medical work up negative Participating in some groups ,no behavior issue Interim history: Patient stated that he will not take Invega because"I had muscle twitches ,dizzy spells and involuntary movement"then he stated "I had b een on psychotropic medications for 45 years ,it did mess my body"grandiose comments "I have straight A in school I want to go back to school',stated that he does feel people are running his life and he want to be able to "be my own guardian",sleeping is interrupted ,racing thoughts and hyperverbal Mental status exam: Patient is dressed in street cloth ,trying to be cooperative ,loud ,intrusive ,hyperverbal ,jumping from one topic to another ,loose of association , ,labile and irritable ,stated mood "frustrated because I am here",paranoia,suspicious ,lot of somatic and grandiose delusion ,denies any hallucination ,denies any suicidal or homicidal ideation,his insight and judgment are impaired Clinical Problems:Schizoaffective,bipolar type,poor compliance with medications Plan: Continue inpatient.d/c Invega ,start Abilify 10 mg PM and Abilify injection 300 mg IM add cogentin ,encourage participation in milieu and compliance with medications
[2019-12-28] MEDS ORDERED: ARIPiprazole 10 MG TAB PO SCH (19:00)
[2019-12-29] MEDS: hydrOXYzine pamoate 25 MG CAP PO PRN (03:21)
[2019-12-29] MEDS: NICOTINE 14MG/24HR PATCH TRANSDERM SCH (03:21)
[2019-12-29] MEDS: METOPROLOL TARTRATE 25 MG TAB PO SCH (07:51)
[2019-12-29] MEDS: LOSARTAN 50 MG TAB PO SCH (07:51)
[2019-12-29] MEDS: amLODIPine 10 MG TAB PO SCH (07:51)
[2019-12-29] MEDS: BENZTROPINE MESYLATE 0.5 MG TAB PO SCH (07:51)
--- NOTE | 2019-12-29 10:43 | P.PN ---
Progress Note - Text Progress Note Date: 12/29/19 I did review medical records ,I discussed case in team meeting ,I did interview patient Slept 3.5 hours TODAY VITALS:Temp:98.4,P:87,R:18.BP:147/77 Today staff note:(( 12/29/19 03:32 - Nurse Note by Susan Martinez Acct Num: [id number] : 1950 Patient Age: 69 PRN:Pt. at the nursing station demanding discharge and states, "I want to go have a cigarette." Pt. educated on the process for d/c and his deferral status. Copy given to him and explained. Pt. slightly escalating but was redirected. Pt. agreeable to take Vistaril and his nicotine patch was administered early to assist with the nicotine cravings. Pt. agreeable and cooperative a this time.) Interim history: Patient stated that he want to go home ,"I need my freedom ",I discussed with him transition to long acting injection and he agreed ,patient verbalized understanding and I agreed to receive IM Abilify Maintaina ,was hyperverbal but able to redirect,stated that he went to one or two groups yesterday but he could not focus because "My mind was fast ",patient was wearing T shirt written on front "DR Zhou Boo"he stated that he was going to [facility] on regular basis and they gave him the shirt as a gift,patient is getting along with his roommate Mental status exam: Patient is dressed in street cloth ,trying to be cooperative ,loud ,intrusive ,hyperverbal ,jumping from one topic to another ,loose of association , , ,stated mood "frustrated because I am here",paranoia,suspicious ,lot of somatic and grandiose delusion ,denies any hallucination ,denies any suicidal or homicidal ideation,his insight and judgment are impaired Clinical Problems:Schizoaffective,bipolar type,poor compliance with medications Plan: Continue inpatient: increase oral Abilify 15 mg PM and Abilify injection 300 mg IM and cogentin ,encourage participation in milieu and compliance with medications .SW to arrange post plan discharge
[2019-12-29] MEDS ORDERED: ARIPiprazole IM 400 MG VIAL (NO COST) PHARMACY STOCK IM ONE (10:44)
[2019-12-29] MEDS: ARIPiprazole 15 MG TAB PO SCH (20:54)
[2019-12-30 06:36] VITALS: RESP 16
--- NOTE | 2019-12-30 10:01 | P.PN ---
Progress Note - Text Progress Note Date: 12/30/19 I did review medical records ,I discussed case in team meeting ,I did interview patient Slept 5-6 hours TODAY VITALS:Temp:98,P:71,R:16,BP:132/76 Participating in groups .interacting with other peers ,no behavior issue Interim history: Patient stated that he slept better last night ,denies any side-effect from injection ,reports increase salivation due to Abilify ,asked if he can stop oral as he received injection yesterday ,I explained to him that he has to be on oral for 2 weeks then d/c Patient stated that he had at least "10 or more hospitalizations at [facility]"first hospitalization 40 years ago ,last one was May 2019,stated he was DX with Manic depressive disorder and schizophrenia Mental status exam: Patient is dressed in street cloth ,pleasant and cooperative ,loud , "Then he did apologize as he was loud" ,speech is rambling ,thought content is linear no loose of association ,,stated mood "All right" ,denies any hallucination ,, denies any idea of reference ,denies any suicidal or homicidal ideation,his insight and judgment are improving Clinical Problems:Schizoaffective,bipolar type,poor compliance with medications Plan: Continue inpatient:continue oral Abilify 15 mg PM ,received Abilify injection 300 mg IM on 12/28 increase cogentin ,encourage participation in milieu and compliance with medications .SW to arrange post plan discharge
[2019-12-30] MEDS: NICOTINE 14MG/24HR PATCH TRANSDERM SCH (10:16)
[2019-12-30] MEDS: LOSARTAN 50 MG TAB PO SCH (10:16)
[2019-12-30] MEDS: amLODIPine 10 MG TAB PO SCH (10:16)
[2019-12-30] MEDS: METOPROLOL TARTRATE 25 MG TAB PO SCH (10:16)
[2019-12-30 11:30] VITALS: BMI 24.9
[2019-12-30] MEDS: BENZTROPINE MESYLATE 0.5 MG TAB PO SCH (11:37)
[2019-12-30] MEDS ORDERED: BENZTROPINE MESYLATE 1 MG TAB PO STA (11:46)
[2019-12-30] MEDS ORDERED: clonazePAM 0.5 MG TAB PO STA (11:51)
[2019-12-30] MEDS: ARIPiprazole 15 MG TAB PO SCH (17:40)
[2019-12-30] MEDS: BENZTROPINE MESYLATE 1 MG TAB PO SCH (22:33)
[2019-12-30] MEDS: clonazePAM 0.5 MG TAB PO SCH (22:33)
[2019-12-31] MEDS: clonazePAM 0.5 MG TAB PO SCH ×2 (09:11→20:58)
[2019-12-31] MEDS: BENZTROPINE MESYLATE 1 MG TAB PO SCH ×2 (09:11→20:58)
[2019-12-31] MEDS: amLODIPine 10 MG TAB PO SCH (09:11)
[2019-12-31] MEDS: NICOTINE 14MG/24HR PATCH TRANSDERM SCH (09:12)
[2019-12-31] MEDS: LOSARTAN 50 MG TAB PO SCH (09:12)
[2019-12-31] MEDS: METOPROLOL TARTRATE 25 MG TAB PO SCH (09:12)
--- NOTE | 2019-12-31 09:35 | P.PN ---
Progress Note - Text Progress Note Date: 12/31/19 I did review medical records ,I discussed case in team meeting ,I did interview patient Slept 5 hours Participating in groups .interacting with other peers ,no behavior issue According to SW note on 12/29((t/c to pt's yulisa to discuss pt's progress and plan for dc. She states pt is doing better but is "still loud". She is aware we are anticipating dc Saturday and expressed no concerns other than aftercare. She requests aftercare in the area as she feels driving to [place] isn't helping pt. Message sent to [facility] liaison to inquire r/t their [facility] services and will possibly refer him there upon dc. Yulisa plans to visit with pt ambrocio)) Interim history: Patient stated that he slept better last night ,denies any side-effect from injection ,stated that cogentin does help ,patient asked if he can be discharged soon "I am listening to you " Mental status exam: Patient is dressed in street cloth ,pleasant and cooperative ,loud , "Then he did apologize as he was loud" ,speech is rambling ,thought content is linear no loose of association ,,stated mood "All right" ,denies any hallucination ,, denies any idea of reference ,denies any suicidal or homicidal ideation,his insight and judgment are improving Clinical Problems:Schizoaffective,bipolar type,poor compliance with medications Plan: Continue inpatient:continue oral Abilify 15 mg PM ,received Abilify injection 300 mg IM on 12/28 continue cogentin ,add low dose of Klonopin ,encourage participation in milieu and compliance with medications .SW to arrange post plan discharge
[2019-12-31] MEDS: ARIPiprazole 15 MG TAB PO SCH (20:58)
[2020-01-01 03:33] VITALS: TEMP 98
[2020-01-01] MEDS: amLODIPine 10 MG TAB PO SCH (08:10)
[2020-01-01] MEDS: NICOTINE 14MG/24HR PATCH TRANSDERM SCH (08:10)
[2020-01-01] MEDS: clonazePAM 0.5 MG TAB PO SCH (08:10)
[2020-01-01] MEDS: METOPROLOL TARTRATE 25 MG TAB PO SCH (08:10)
[2020-01-01] MEDS: LOSARTAN 50 MG TAB PO SCH (08:10)
[2020-01-01] MEDS: BENZTROPINE MESYLATE 1 MG TAB PO SCH (08:10)
[2020-01-01 08:14] VITALS: BP 142/77; PULSE 76
--- NOTE | 2020-01-01 11:31 | DS ---
DISCHARGE SUMMARY DATE OF ADMISSION: 12/21/2019 DATE OF DISCHARGE: 01/01/2020 NANOTECHNICIAN: for H and P and medical management. DISCHARGE DIAGNOSES: 1. Bipolar disorder, manic with psychotic features versus schizoaffective disorder in partial remission. 2. Poor compliance with treatment. HISTORY OF PRESENT ILLNESS: The patient is a 69, male who is currently living with his daughter who has guardianship and he is receiving social security disability income for more than 20 years. Initially patient was very disorganized and he was very reluctant to stay in the hospital despite I did show him the petition filed by his daughter saying that the patient is not taking his medication, aggressive and not taking care of his basic needs. The patient starts yelling, asking for discharge and he did require p.r.n. Ativan and Haldol. As the patient was very poor historian, most of the information was getting from his daughter; however, daughter did not have any contact with him until 2015 when his . She stated that his last inpatient hospitalization was in May at the [facility] for at least 6 weeks and he was discharged on lithium and Seroquel, but he discontinued both. For complete assessment. Please refer to my H and P HOSPITAL COURSE: Patient was admitted to the hospital and he was just on p.r.n. medication until his deferral meeting. During the deferral meeting, he did sign the deferral meeting and he did agree to start Abilify. Initially, he stated that he has been in different inpatient hospitalization, and he told me that he was for the last 45 years on different psychotropic medication. Nothing did help except Navane. So initially he was started on Invega, but after one dose, he started having a lot of stomach complaint, muscle twitches, dizzy, lightheaded, so I did switch him to Abilify and our case management social worker did contact his guardian more than once, who stated that she does want her father to be on long-acting injection due to his poor compliance. So I gradually titrated the oral Abilify up to 15 mg daily, and I did add Cogentin twice a day as he did have increased salivation. Patient was always loud, but he stated that he has been loud like his dad all his life. He was very easy to redirect. He was participating in every group. Initially, he was very intrusive, but after this. it seems that he was interacting with other patients, less disorganized and he did agree to take injection of Abilify. I did discuss with him that he will take the oral Abilify only for 2 weeks. During his stay here, patient was at times very anxious and nervous and I did add Klonopin and his daughter who is the guardian is aware of the addiction potential of the Klonopin. At the time of the discharge, he denied feeling depressed, hopeless, or suicidal. He denied any hallucination. He denied any manic feature except he stated that he was excited the night before the discharge and he could not sleep more than 4 hours. He is still loud, but not intrusive and very easy to redirect. MENTAL STATUS EXAMINATION: At the time of the discharge, the patient appears his stated age. Fair grooming. He does not have any dentures. His speech is rambling at time, but easy to understand. There is no abnormal movement. He was cooperative with good eye contact. Very polite. Speech was normal in rate and tone. Stated mood anxious to go home. Affect is constricted. His thought content is linear and coherent, and goal directed. Denied any suicidal or homicidal ideation. Denied any delusional or auditory hallucination. He was oriented to time, place, and person. His insight and judgment are improving. ASSESSMENT OR DISCHARGE DIAGNOSES: 1. Schizoaffective bipolar type, versus bipolar disorder, manic with psychotic features, in partial remission. 2. Poor compliance with medication. DISCHARGE RECOMMENDATIONS: 1. Patient will follow up with his primary care physician regarding his medical issue as he has hypertension. Patient to continue on his Cozaar, Lopressor, and for blood pressure. 2. Patient will follow up with [facility] at [place] for medication and for counseling. 3. He was given 2 week supply of Abilify 15 mg to take after supper for 2 weeks, then discontinue. Cogentin 1 mg twice a day, Klonopin or clonazepam 0.25 mg twice a day for anxiety. He was given prescription for Abilify Maintena 300 mg and his next injection is due on January 27, 2020. MMODL / IJN: [id number] /
== END 2020-01-01 13:32 | disposition home or self-care (01) | DRG 885 ==
LOC: EC 20:25 → 3MHU 12-22 20:26
PROVIDERS: ADMIT Psychiatry & Neurology Psychiatry; ATTEND Psychiatry & Neurology Psychiatry
DX: F25.0 Schizoaffective disorder, bipolar type (principal); E87.2 Acidosis; F31.2 Bipolar disorder, current episode manic severe with psychotic features; I10 Essential (primary) hypertension; F41.9 Anxiety disorder, unspecified; R00.1 Bradycardia, unspecified; R00.2 Palpitations; Z79.899 Other long term (current) drug therapy; Z88.8 Allergy status to other drugs, medicaments and biological substances; Z98.890 Other specified postprocedural states; Z91.19 Patient's noncompliance with other medical treatment and regimen; Z91.14 Patient's other noncompliance with medication regimen; Z82.49 Family history of ischemic heart disease and other diseases of the circulatory system
CPT/HCPCS: 36415; 70450; 80048; 80053; 80061; 80178; 80306; 82075; 83036; 84443; 84484; 85025; 93005; 96372; 99285

== ENCOUNTER 2020-01-03 16:35 | Emergency (ER) | payer MEDICARE, OTHER ==
[2020-01-03] MEDS ORDERED: SODIUM CHLORIDE 0.9% 500 ML 500 ML IV ONE (17:03)
--- NOTE | 2020-01-03 17:07 | ED ---
General Adult HPI - General Source: patient, EMS, RN notes reviewed, old records reviewed Mode of arrival: EMS Limitations: altered mental status <Issa Gabriel - Last Filed: 01/04/20 19:07> <Uri Mcclain - Last Filed: 01/08/20 13:00> - General Chief complaint: Altered Mental Status Stated complaint: Poss Med Reaction/AMS Time Seen by Provider: 01/03/20 16:45 - History of Present Illness Initial comments: 69-year-old male presenting for evaluation of confusion, difficulty with activities of daily living. Patient has history of schizophrenia and bipolar disease. He was recently admitted to the hospital with multiple medication changes. He was previously on Seroquel. He had been changed to Abilify Cogentin and was taken off of his Seroquel. He also was previously on lithium. Uncertain if he is currently prescribed lithium at this time or not. He has been taking his medications inappropriately. He has not been eating or drinking well according to his daughter who is at bedside. She states that he withdrew a large amount of money from the checking account with no specific plan on how to spend his money. He denies any suicidal or homicidal ideation. He is alert and oriented 3 at the time my evaluation. (Issa Gabriel) - Related Data Home Medications Medication Instructions Recorded Confirmed Losartan [Cozaar] 50 mg PO DAILY 06/18/19 01/05/20 Metoprolol Tartrate [Lopressor] 25 mg PO DAILY 06/18/19 01/05/20 amLODIPine [Norvasc] 10 mg PO DAILY 06/18/19 01/05/20 Previous Rx's Medication Instructions Recorded ARIPiprazole [Abilify Maintena] 300 mg PO QMONTHLY #1 syr 01/01/20 ARIPiprazole [Abilify] 15 mg PO 1900 14 Days tab 01/01/20 Benztropine Mesylate [Cogentin] 1 mg PO BID 30 Days tab 01/01/20 clonazePAM [KlonoPIN] 0.25 mg PO BID 30 Days tab 01/01/20 Allergies Allergy/AdvReac Type Severity Reaction Status Date / Time molindone [From Mobjann] Allergy Rash/Hives Verified 01/05/20 08:00 chlorpromazine AdvReac Hallucinati Verified 01/05/20 08:00 [From Thorazine] ons Review of Systems ROS Other: All systems not noted in ROS Statement are negative. <NeryIssa Castillo - Last Filed: 01/04/20 19:07> ROS Other: All systems not noted in ROS Statement are negative. <Uri Mcclain - Last Filed: 01/08/20 13:00> ROS Statement: Those systems with pertinent positive or pertinent negative responses have been documented in the HPI. Past Medical History Past Medical History: Hypertension History of Any Multi-Drug Resistant Organisms: None Reported Past Surgical History: Heart Catheterization Past Psychological History: No Psychological Hx Reported Smoking Status: Current every day smoker Past Alcohol Use History: None Reported Past Drug Use History: None Reported - Past Family History Family Family Medical History: Unable to Obtain <LuanneyolandaIssa Castillo - Last Filed: 01/04/20 19:07> General Exam Limitations: altered mental status General appearance: alert, in no apparent distress Head exam: Present: atraumatic, normocephalic Eye exam: Present: normal appearance, PERRL ENT exam: Present: mucous membranes dry Neck exam: Present: normal inspection. Absent: tenderness, meningismus Respiratory exam: Present: normal lung sounds bilaterally. Absent: respiratory distress, wheezes Cardiovascular Exam: Present: regular rate, normal rhythm GI/Abdominal exam: Present: soft. Absent: distended, tenderness Extremities exam: Present: normal inspection, normal capillary refill. Absent: pedal edema, calf tenderness Neurological exam: Present: alert, oriented X3, CN II-XII intact. Absent: motor sensory deficit Psychiatric exam: Present: flat affect. Absent: suicidal ideation Skin exam: Present: warm, dry, intact. Absent: cyanosis, diaphoretic <SallyIssa hu - Last Filed: 01/04/20 19:07> Course <SallyIssa hu - Last Filed: 01/04/20 19:07> Vital Signs 01/03/20 01/03/20 01/04/20 16:46 20:39 02:15 Temperature 98.1 F 97.5 F L 98.2 F Pulse Rate 80 62 70 Respiratory 16 18 18 Rate Blood Pressure 145/74 145/75 150/71 O2 Sat by Pulse 97 97 96 Oximetry 01/04/20 01/04/20 01/04/20 07:10 19:24 23:33 Temperature 97.9 F 98.7 F Pulse Rate 72 72 60 Respiratory 18 16 18 Rate Blood Pressure 148/74 153/78 160/74 O2 Sat by Pulse 96 98 99 Oximetry 01/05/20 01/05/20 01/05/20 08:00 09:00 10:00 Temperature 97.9 F Pulse Rate 62 Respiratory 18 18 18 Rate Blood Pressure 164/76 149/74 O2 Sat by Pulse 99 Oximetry 01/05/20 01/05/20 01/05/20 11:00 17:57 21:05 Temperature 98 F 98.2 F Pulse Rate 68 78 Respiratory 18 18 18 Rate Blood Pressure 143/70 172/90 O2 Sat by Pulse 98 98 Oximetry 01/05/20 23:45 Temperature Pulse Rate 79 Respiratory 16 Rate Blood Pressure 166/92 O2 Sat by Pulse 98 Oximetry - Reevaluation(s) Reevaluation #1: 01/03/20 18:31 Patient cleared for EPS evaluation (Issa Gabriel) Reevaluation #2: 01/03/20 20:59 Patient's care is signed out to Dr. Armstrong at shift change awaiting EPS disposition, likely transfer. (Issa Gabriel) Reevaluation #3: 01/04/20 19:08 I was able to complete a clinical certification for this patient, stable while awaiting transfer to [facility]. (Issa Gabriel) Medical Decision Making - Lab Data Result diagrams: 01/03/20 17:23 01/03/20 17:23 <Issa Gabriel - Last Filed: 01/04/20 19:07> - Lab Data Result diagrams: 01/03/20 17:23 01/03/20 17:23 <Uri Mcclain - Last Filed: 01/08/20 13:00> - Lab Data Lab Results 01/03/20 01/03/20 01/03/20 Range/Units 17:23 17:23 17:23 WBC 8.6 (3.8-10.6) k/uL RBC 3.84 L (4.30-5.90) m/uL Hgb 12.3 L (13.0-17.5) gm/dL Hct 37.0 L (39.0-53.0) % MCV 96.5 (80.0-100.0) fL MCH 32.1 (25.0-35.0) pg MCHC 33.3 (31.0-37.0) g/dL RDW 13.6 (11.5-15.5) % Plt Count 195 (150-450) k/uL Neutrophils % 60 % Lymphocytes % 29 % Monocytes % 4 % Eosinophils % 5 % Basophils % 1 % Neutrophils # 5.1 (1.3-7.7) k/uL Lymphocytes # 2.5 (1.0-4.8) k/uL Monocytes # 0.4 (0-1.0) k/uL Eosinophils # 0.4 (0-0.7) k/uL Basophils # 0.0 (0-0.2) k/uL PT 9.7 (9.0-12.0) sec INR 0.9 (<1.2) APTT 22.7 (22.0-30.0) sec Sodium (137-145) mmol/L Potassium (3.5-5.1) mmol/L Chloride (98-107) mmol/L Carbon Dioxide (22-30) mmol/L Anion Gap mmol/L BUN (9-20) mg/dL Creatinine (0.66-1.25) mg/dL Est GFR (CKD-EPI)AfAm (>60 ml/min/1.73 sqM) Est GFR (CKD-EPI)NonAf (>60 ml/min/1.73 sqM) Glucose (74-99) mg/dL Calcium (8.4-10.2) mg/dL Total Bilirubin (0.2-1.3) mg/dL AST (17-59) U/L ALT (4-49) U/L Alkaline Phosphatase (38-126) U/L Total Protein (6.3-8.2) g/dL Albumin (3.5-5.0) g/dL Urine Color Light Yellow Urine Appearance Clear (Clear) Urine pH 6.0 (5.0-8.0) Ur Specific [place] 1.004 (1.001-1.035) Urine Protein Negative (Negative) Urine Glucose (UA) Negative (Negative) Urine Ketones Negative (Negative) Urine Blood Negative (Negative) Urine Nitrite Negative (Negative) Urine Bilirubin Negative (Negative) Urine Urobilinogen <2.0 (<2.0) mg/dL Ur Leukocyte Esterase Negative (Negative) Urine Opiates Screen Not Detected (NotDetected) Ur Oxycodone Screen Not Detected (NotDetected) Urine Methadone Screen Not Detected (NotDetected) Ur Propoxyphene Screen Not Detected (NotDetected) Ur Barbiturates Screen Not Detected (NotDetected) U Tricyclic Antidepress Not Detected (NotDetected) Ur Phencyclidine Scrn Not Detected (NotDetected) Ur Amphetamines Screen Not Detected (NotDetected) U Methamphetamines Scrn Not Detected (NotDetected) U Benzodiazepines Scrn Not Detected (NotDetected) [place] mmol/L Urine Cocaine Screen Not Detected (NotDetected) U Marijuana (THC) Screen Not Detected (NotDetected) Serum Alcohol mg/dL Coronavirus (PCR) (Not Detected) 01/03/20 01/05/20 Range/Units 17:23 01:23 WBC (3.8-10.6) k/uL RBC (4.30-5.90) m/uL Hgb (13.0-17.5) gm/dL Hct (39.0-53.0) % MCV (80.0-100.0) fL MCH (25.0-35.0) pg MCHC (31.0-37.0) g/dL RDW (11.5-15.5) % Plt Count (150-450) k/uL Neutrophils % % Lymphocytes % % Monocytes % % Eosinophils % % Basophils % % Neutrophils # (1.3-7.7) k/uL Lymphocytes # (1.0-4.8) k/uL Monocytes # (0-1.0) k/uL Eosinophils # (0-0.7) k/uL Basophils # (0-0.2) k/uL PT (9.0-12.0) sec INR (<1.2) APTT (22.0-30.0) sec Sodium 139 (137-145) mmol/L Potassium 3.8 (3.5-5.1) mmol/L Chloride 109 H (98-107) mmol/L Carbon Dioxide 22 (22-30) mmol/L Anion Gap 8 mmol/L BUN 7 L (9-20) mg/dL Creatinine 0.81 (0.66-1.25) mg/dL Est GFR (CKD-EPI)AfAm >90 (>60 ml/min/1.73 sqM) Est GFR (CKD-EPI)NonAf >90 (>60 ml/min/1.73 sqM) Glucose 90 (74-99) mg/dL Calcium 9.5 (8.4-10.2) mg/dL Total Bilirubin 0.2 (0.2-1.3) mg/dL AST 30 (17-59) U/L ALT 14 (4-49) U/L Alkaline Phosphatase 77 (38-126) U/L Total Protein 6.5 (6.3-8.2) g/dL Albumin 3.9 (3.5-5.0) g/dL Urine Color Urine Appearance (Clear) Urine pH (5.0-8.0) Ur Specific [place] (1.001-1.035) Urine Protein (Negative) Urine Glucose (UA) (Negative) Urine Ketones (Negative) Urine Blood (Negative) Urine Nitrite (Negative) Urine Bilirubin (Negative) Urine Urobilinogen (<2.0) mg/dL Ur Leukocyte Esterase (Negative) Urine Opiates Screen (NotDetected) Ur Oxycodone Screen (NotDetected) Urine Methadone Screen (NotDetected) Ur Propoxyphene Screen (NotDetected) Ur Barbiturates Screen (NotDetected) U Tricyclic Antidepress (NotDetected) Ur Phencyclidine Scrn (NotDetected) Ur Amphetamines Screen (NotDetected) U Methamphetamines Scrn (NotDetected) U Benzodiazepines Scrn (NotDetected) [place] <0.2 mmol/L Urine Cocaine Screen (NotDetected) U Marijuana (THC) Screen (NotDetected) Serum Alcohol <10 mg/dL Coronavirus (PCR) Not Detected (Not Detected) Disposition <Issa Gabriel - Last Filed: 01/04/20 19:07> Time of Disposition: 13:00 <Uri Mcclain - Last Filed: 01/08/20 13:00> Clinical Impression: Psychosis Disposition: TRANSFER TO PSYCH HOSP/UNIT Referrals: Leonard Herndon MD [Primary Care Provider] - 1-2 days
[2020-01-03 17:33] LABS: Basophils % (A) 1 %; Eosinophils # (A) 0.4 k/uL (0-0.7); Eosinophils % (A) 5 %; HGB 12.3 gm/dL (13.0-17.5); Lymphocytes # (A) 2.5 k/uL (1.0-4.8); Lymphocytes % (A) 29 %; MCH 32.1 pg (25.0-35.0); MCHC 33.3 g/dL (31.0-37.0); MCV 96.5 fL (80.0-100.0); Mean Platelet Volume 7.6; Monocytes # (A) 0.4 k/uL (0-1.0); Monocytes % (A) 4 %; Neutrophils # (A) 5.1 k/uL (1.3-7.7); Neutrophils % (A) 60 %; Platelet Count 195 k/uL (150-450); RBC 3.84 m/uL (4.30-5.90); RDW 13.6 % (11.5-15.5); WBC 8.6 k/uL (3.8-10.6)
[2020-01-03 17:47] LABS: INR 0.9 (<1.2); Partial Thromboplastin Time 22.7 sec (22.0-30.0); Prothrombin Time 9.7 sec (9.0-12.0)
[2020-01-03 17:53] LABS: Appearance,Urine Clear (Clear); Bilirubin,Urine Negative (Negative); Blood,Urine Negative (Negative); Color,Urine Light Yellow; Glucose,Urine (UA) Negative (Negative); Ketones,Urine Negative (Negative); Leukocyte Esterase,Urine Negative (Negative); Nitrite,Urine Negative (Negative); Protein,Urine Negative (Negative); Specific Gravity,Urine 1.004 (1.001-1.035); Urobilinogen,Urine <2.0 mg/dL (<2.0)
[2020-01-03 18:05] LABS: ALT 14 U/L (4-49); AST 30 U/L (17-59); African American GFR (CKD) >90 (>60 ml/min/1.73 sqM); Albumin 3.9 g/dL (3.5-5.0); Alcohol <10 mg/dL; Alkaline Phosphatase 77 U/L (38-126); Amphetamine Screen,Urine Not Detected (NotDetected); Anion Gap 8 mmol/L; Barbiturate Screen,Urine Not Detected (NotDetected); Benzodiazepines Screen,Urine Not Detected (NotDetected); Blood Urea Nitrogen 7 mg/dL (9-20); Calcium 9.5 mg/dL (8.4-10.2); Carbon Dioxide 22 mmol/L (22-30); Chloride 109 mmol/L (98-107); Cocaine Screen,Urine Not Detected (NotDetected); Glucose 90 mg/dL (74-99); Lithium <0.2 mmol/L; Methadone Screen, Urine Not Detected (NotDetected); Non-African American GFR(CKD) >90 (>60 ml/min/1.73 sqM); Opiate Screen,Urine Not Detected (NotDetected); Oxycodone Screen, Urine Not Detected (NotDetected); Phencyclidine Screen,Urine Not Detected (NotDetected); Potassium 3.8 mmol/L (3.5-5.1); Sodium 139 mmol/L (137-145); Total Bilirubin 0.2 mg/dL (0.2-1.3); Total Protein 6.5 g/dL (6.3-8.2); Tricyclic Antidepressant,Urine Not Detected (NotDetected); Urn Cannabinoid Scrn Not Detected (NotDetected)
[2020-01-04] MEDS ORDERED: ACETAMINOPHEN TAB 325 MG TAB PO STA (22:04)
[2020-01-05] MEDS ORDERED: NICOTINE 14MG/24HR PATCH TRANSDERM STA (05:58)
[2020-01-05] MEDS ORDERED: METOPROLOL TARTRATE 25 MG TAB PO SCH (09:00)
[2020-01-05] MEDS ORDERED: amLODIPine 10 MG TAB PO SCH (09:00)
[2020-01-05 21:05] VITALS: TEMP 98.2
[2020-01-06 00:12] VITALS: BP 166/92; PULSE 79; RESP 16
== END 2020-01-05 23:55 ==
LOC: EEVIPCON 16:35 → EC 16:35
DX: F29 Unspecified psychosis not due to a substance or known physiological condition (principal); Z20.828 Contact with and (suspected) exposure to other viral communicable diseases; I10 Essential (primary) hypertension; F17.200 Nicotine dependence, unspecified, uncomplicated; Z79.899 Other long term (current) drug therapy; Z88.8 Allergy status to other drugs, medicaments and biological substances
CPT/HCPCS: 82075; 36415; 80053; 80178; 85025; 85610; 85730; 81003; 80306; 99285; 96360; 96361 ×9; G0480; S4990; 80320

== ENCOUNTER 2020-04-27 09:54 | Inpatient (IN) | payer OTHER, MEDICARE ==
[2020-04-27 10:46] LABS: Basophils # (A) 0.1 k/uL (0-0.2); Basophils % (A) 1 %; Eosinophils # (A) 0.3 k/uL (0-0.7); Eosinophils % (A) 3 %; HCT 42.1 % (39.0-53.0); HGB 14.4 gm/dL (13.0-17.5); Lymphocytes # (A) 2.5 k/uL (1.0-4.8); Lymphocytes % (A) 23 %; MCH 32.1 pg (25.0-35.0); MCHC 34.1 g/dL (31.0-37.0); MCV 93.9 fL (80.0-100.0); Monocytes # (A) 0.4 k/uL (0-1.0); Monocytes % (A) 4 %; Neutrophils # (A) 7.7 k/uL (1.3-7.7); Neutrophils % (A) 69 %; Platelet Count 232 k/uL (150-450); RBC 4.49 m/uL (4.30-5.90); RDW 13.4 % (11.5-15.5); WBC 11.1 k/uL (3.8-10.6)
[2020-04-27 10:48] LABS: Appearance,Urine Clear (Clear); Bilirubin,Urine Negative (Negative); Blood,Urine Negative (Negative); Color,Urine Colorless; Glucose,Urine (UA) Negative (Negative); Ketones,Urine Negative (Negative); Leukocyte Esterase,Urine Negative (Negative); Nitrite,Urine Negative (Negative); PH, Urine 6.5 (5.0-8.0); Protein,Urine Negative (Negative); Specific Gravity,Urine 1.002 (1.001-1.035); Urobilinogen,Urine <2.0 mg/dL (<2.0)
[2020-04-27 11:09] LABS: Amphetamine Screen,Urine Not Detected (NotDetected); Barbiturate Screen,Urine Not Detected (NotDetected); Benzodiazepines Screen,Urine Not Detected (NotDetected); Cocaine Screen,Urine Not Detected (NotDetected); Methadone Screen, Urine Not Detected (NotDetected); Opiate Screen,Urine Not Detected (NotDetected); Oxycodone Screen, Urine Not Detected (NotDetected); Phencyclidine Screen,Urine Not Detected (NotDetected); Tricyclic Antidepressant,Urine Not Detected (NotDetected); Urn Cannabinoid Scrn Not Detected (NotDetected)
[2020-04-27 11:23] LABS: ALT 14 U/L (4-49); AST 23 U/L (17-59); African American GFR (CKD) >90 (>60 ml/min/1.73 sqM); Albumin 4.5 g/dL (3.5-5.0); Alkaline Phosphatase 100 U/L (38-126); Anion Gap 9 mmol/L; Blood Urea Nitrogen 14 mg/dL (9-20); Calcium 9.7 mg/dL (8.4-10.2); Carbon Dioxide 22 mmol/L (22-30); Chloride 108 mmol/L (98-107); Glucose 106 mg/dL (74-99); Lithium <0.2 mmol/L; Magnesium 2.1 mg/dL (1.6-2.3); Non-African American GFR(CKD) >90 (>60 ml/min/1.73 sqM); Potassium 3.3 mmol/L (3.5-5.1); Sodium 139 mmol/L (137-145); Total Bilirubin 0.3 mg/dL (0.2-1.3); Total Protein 7.8 g/dL (6.3-8.2)
[2020-04-27] MEDS ORDERED: LORazepam 1 MG TAB PO STA (11:58)
[2020-04-27] MEDS ORDERED: ACETAMINOPHEN TAB 325 MG TAB PO STA (11:58)
--- NOTE | 2020-04-27 12:45 | ED ---
Psych HPI - General Chief Complaint: Psychiatric Symptoms Stated Complaint: AMS Time Seen by Provider: 04/27/20 09:57 Source: patient, EMS Mode of arrival: EMS - History of Present Illness Initial Comments: 69-year-old male petition for psychotic behavior and for medication noncom pliance. Patient's daughter states patient has been more aggravated and aggressive at home secondary twice she believes is noncompliance with his lithium and Risperdal-per police/EMS. Patient denies physical complaints. denies suicidal or homicidal ideations. he states he doesnt need to take those medications anymore. - Related Data Home Medications Medication Instructions Recorded Confirmed Losartan [Cozaar] 50 mg PO DAILY 06/18/19 04/27/20 Metoprolol Tartrate [Lopressor] 25 mg PO DAILY 06/18/19 04/27/20 amLODIPine [Norvasc] 10 mg PO DAILY 06/18/19 04/27/20 Cholecalciferol [Vitamin D3 (25 1,000 unit PO DAILY 04/27/20 04/27/20 Mcg = 1000 Iu)] Cyanocobalamin (Vitamin B-12) 1,000 mcg PO DAILY 04/27/20 04/27/20 [Vitamin B-12] [place] Carbonate 600 mg PO BID 04/27/20 04/27/20 risperiDONE 3 mg PO HS 04/27/20 04/27/20 Allergies Allergy/AdvReac Type Severity Reaction Status Date / Time molindone [From [place]] Allergy Rash/Hives Verified 04/27/20 11:19 chlorpromazine AdvReac Hallucinati Verified 04/27/20 11:19 [From Thorazine] ons Review of Systems ROS Statement: Those systems with pertinent positive or pertinent negative responses have been documented in the HPI. ROS Other: All systems not noted in ROS Statement are negative. Past Medical History Past Medical History: Hypertension History of Any Multi-Drug Resistant Organisms: None Reported Past Surgical History: Heart Catheterization Past Psychological History: Anxiety, Schizophrenia Smoking Status: Current every day smoker Past Alcohol Use History: None Reported Past Drug Use History: None Reported - Past Family History Family Family Medical History: Unable to Obtain General Exam - General Exam Comments Initial Comments: General: The patient is awake and alert, in no distress Eye: Pupils are equal, round and reactive to light, extra-ocular movements are intact. No nystagmus. There is normal conjunctiva bilaterally. No signs of icterus. Ears, nose, mouth and throat: There are moist mucous membranes and no oral lesions. Neck: The neck is supple, there is no tenderness or JVD. Cardiovascular: There is a regular rate and rhythm. No murmur, rub or gallop is appreciated. Respiratory: Lungs are clear to auscultation, respirations are non-labored, breath sounds are equal. No wheezes, stridor, rales, or rhonchi. Gastrointestinal: Soft, non-distended, non-tender abdomen without masses or organomegaly noted. There is no rebound or guarding present. Musculoskeletal: Normal ROM, no tenderness. Strength 5/5. Sensation intact. Rdaial pulses equal bilaterally 2+. Neurological: A&O x 3. CN II-XII intact, There are no obvious motor or sensory deficits. Coordination appears grossly intact. Speech is normal. Skin: Skin is warm and dry and no rashes or lesions are noted. Psychiatric: Cooperative, loud, bizzare thoughts/statements Limitations: no limitations Course Vital Signs 04/27/20 09:58 Temperature 98.3 F Pulse Rate 89 Respiratory 18 Rate Blood Pressure 146/74 O2 Sat by Pulse 98 Oximetry Medical Decision Making - Medical Decision Making [place] undetectable. bizzare thoughts on exam. appears acutely psychotic. medication noncompliance. petitioned by daughter. medically cleared for EPS evaluation. EPS/psychiatrist recommends admit. Pt certified and taken to psychiatric floor. - Lab Data Result diagrams: 04/27/20 10:24 04/28/20 07:27 Lab Results 04/27/20 04/27/20 04/27/20 Range/Units 10:24 10:24 10:24 WBC 11.1 H (3.8-10.6) k/uL RBC 4.49 (4.30-5.90) m/uL Hgb 14.4 (13.0-17.5) gm/dL Hct 42.1 (39.0-53.0) % MCV 93.9 (80.0-100.0) fL MCH 32.1 (25.0-35.0) pg MCHC 34.1 (31.0-37.0) g/dL RDW 13.4 (11.5-15.5) % Plt Count 232 (150-450) k/uL MPV 7.0 Neutrophils % 69 % Lymphocytes % 23 % Monocytes % 4 % Eosinophils % 3 % Basophils % 1 % Neutrophils # 7.7 (1.3-7.7) k/uL Lymphocytes # 2.5 (1.0-4.8) k/uL Monocytes # 0.4 (0-1.0) k/uL Eosinophils # 0.3 (0-0.7) k/uL Basophils # 0.1 (0-0.2) k/uL Sodium 139 (137-145) mmol/L Potassium 3.3 L (3.5-5.1) mmol/L Chloride 108 H (98-107) mmol/L Carbon Dioxide 22 (22-30) mmol/L Anion Gap 9 mmol/L BUN 14 (9-20) mg/dL Creatinine 0.82 (0.66-1.25) mg/dL Est GFR (CKD-EPI)AfAm >90 (>60 ml/min/1.73 sqM) Est GFR (CKD-EPI)NonAf >90 (>60 ml/min/1.73 sqM) Glucose 106 H (74-99) mg/dL Calcium 9.7 (8.4-10.2) mg/dL Magnesium 2.1 (1.6-2.3) mg/dL Total Bilirubin 0.3 (0.2-1.3) mg/dL AST 23 (17-59) U/L ALT 14 (4-49) U/L Alkaline Phosphatase 100 (38-126) U/L Total Protein 7.8 (6.3-8.2) g/dL Albumin 4.5 (3.5-5.0) g/dL Urine Color Colorless Urine Appearance Clear (Clear) Urine pH 6.5 (5.0-8.0) Ur Specific [place] 1.002 (1.001-1.035) Urine Protein Negative (Negative) Urine Glucose (UA) Negative (Negative) Urine Ketones Negative (Negative) Urine Blood Negative (Negative) Urine Nitrite Negative (Negative) Urine Bilirubin Negative (Negative) Urine Urobilinogen <2.0 (<2.0) mg/dL Ur Leukocyte Esterase Negative (Negative) Urine Opiates Screen Not Detected (NotDetected) Ur Oxycodone Screen Not Detected (NotDetected) Urine Methadone Screen Not Detected (NotDetected) Ur Propoxyphene Screen Not Detected (NotDetected) Ur Barbiturates Screen Not Detected (NotDetected) U Tricyclic Antidepress Not Detected (NotDetected) Ur Phencyclidine Scrn Not Detected (NotDetected) Ur Amphetamines Screen Not Detected (NotDetected) U Methamphetamines Scrn Not Detected (NotDetected) U Benzodiazepines Scrn Not Detected (NotDetected) [place] <0.2 mmol/L Urine Cocaine Screen Not Detected (NotDetected) U Marijuana (THC) Screen Not Detected (NotDetected) Coronavirus (PCR) (Not Detected) 04/27/20 Range/Units 10:24 WBC (3.8-10.6) k/uL RBC (4.30-5.90) m/uL Hgb (13.0-17.5) gm/dL Hct (39.0-53.0) % MCV (80.0-100.0) fL MCH (25.0-35.0) pg MCHC (31.0-37.0) g/dL RDW (11.5-15.5) % Plt Count (150-450) k/uL MPV Neutrophils % % Lymphocytes % % Monocytes % % Eosinophils % % Basophils % % Neutrophils # (1.3-7.7) k/uL Lymphocytes # (1.0-4.8) k/uL Monocytes # (0-1.0) k/uL Eosinophils # (0-0.7) k/uL Basophils # (0-0.2) k/uL Sodium (137-145) mmol/L Potassium (3.5-5.1) mmol/L Chloride (98-107) mmol/L Carbon Dioxide (22-30) mmol/L Anion Gap mmol/L BUN (9-20) mg/dL Creatinine (0.66-1.25) mg/dL Est GFR (CKD-EPI)AfAm (>60 ml/min/1.73 sqM) Est GFR (CKD-EPI)NonAf (>60 ml/min/1.73 sqM) Glucose (74-99) mg/dL Calcium (8.4-10.2) mg/dL Magnesium (1.6-2.3) mg/dL Total Bilirubin (0.2-1.3) mg/dL AST (17-59) U/L ALT (4-49) U/L Alkaline Phosphatase (38-126) U/L Total Protein (6.3-8.2) g/dL Albumin (3.5-5.0) g/dL Urine Color Urine Appearance (Clear) Urine pH (5.0-8.0) Ur Specific [place] (1.001-1.035) Urine Protein (Negative) Urine Glucose (UA) (Negative) Urine Ketones (Negative) Urine Blood (Negative) Urine Nitrite (Negative) Urine Bilirubin (Negative) Urine Urobilinogen (<2.0) mg/dL Ur Leukocyte Esterase (Negative) Urine Opiates Screen (NotDetected) Ur Oxycodone Screen (NotDetected) Urine Methadone Screen (NotDetected) Ur Propoxyphene Screen (NotDetected) Ur Barbiturates Screen (NotDetected) U Tricyclic Antidepress (NotDetected) Ur Phencyclidine Scrn (NotDetected) Ur Amphetamines Screen (NotDetected) U Methamphetamines Scrn (NotDetected) U Benzodiazepines Scrn (NotDetected) [place] mmol/L Urine Cocaine Screen (NotDetected) U Marijuana (THC) Screen (NotDetected) Coronavirus (PCR) Not Detected (Not Detected) Disposition Clinical Impression: Psychosis Disposition: TRANSFER TO PSYCH HOSP/UNIT Condition: Stable Is patient prescribed a controlled substance at d/c from ED?: No Time of Disposition: 10:52 - Out of Hospital Transfer - Req. Specs Out of Hospital Transfer - Requested Specifics: Psychiatric Non-ICU
[2020-04-27] MEDS ORDERED: MAGNESIUM HYDROXIDE 2,400 MG/10 ML CUP PO PRN (14:10)
[2020-04-27] MEDS ORDERED: haloperidoL 5 MG TAB PO PRN (14:16)
[2020-04-27] MEDS ORDERED: POTASSIUM CHLORIDE ER 20 MEQ TAB.ER PO STA (14:18)
[2020-04-27] MEDS: MAG HYDROX/AL HYDROX/SIMETH 30 ML CUP PO PRN (15:52)
[2020-04-27] MEDS: LORazepam 1 MG TAB PO PRN (18:55)
[2020-04-27] MEDS: ACETAMINOPHEN TAB 500 MG TAB PO PRN (19:39)
[2020-04-27] MEDS: LITHIUM CARBONATE 300 MG CAP PO SCH (21:11)
[2020-04-27] MEDS: risperiDONE 1 MG TAB PO SCH (21:11)
[2020-04-28 08:20] LABS: ALT 13 U/L (4-49); AST 26 U/L (17-59); African American GFR (CKD) >90 (>60 ml/min/1.73 sqM); Albumin 4.5 g/dL (3.5-5.0); Alkaline Phosphatase 81 U/L (38-126); Anion Gap 8 mmol/L; Blood Urea Nitrogen 11 mg/dL (9-20); Calcium 9.9 mg/dL (8.4-10.2); Carbon Dioxide 26 mmol/L (22-30); Chloride 106 mmol/L (98-107); Cholesterol 178 mg/dL (<200); Glucose 85 mg/dL (74-99); HDL Cholesterol 57 mg/dL (40-60); LDL Cholesterol,Calculated 104 mg/dL (0-99); Non-African American GFR(CKD) 89 (>60 ml/min/1.73 sqM); Sodium 140 mmol/L (137-145); Total Bilirubin 0.5 mg/dL (0.2-1.3); Total Protein 7.8 g/dL (6.3-8.2); Triglycerides 85 mg/dL (<150)
[2020-04-28] MEDS: NICOTINE 14MG/24HR PATCH TRANSDERM SCH (09:01)
[2020-04-28] MEDS: CYANOCOBALAMIN 500 MCG TAB PO SCH (09:02)
[2020-04-28] MEDS: LOSARTAN 50 MG TAB PO SCH (09:02)
[2020-04-28] MEDS: LITHIUM CARBONATE 300 MG CAP PO SCH ×2 (09:02→20:51)
[2020-04-28] MEDS: CHOLECALCIFEROL 1,000 UNIT TAB PO SCH (09:02)
[2020-04-28] MEDS: amLODIPine 10 MG TAB PO SCH (09:02)
[2020-04-28] MEDS: METOPROLOL TARTRATE 25 MG TAB PO SCH (09:02)
[2020-04-28] MEDS: ACETAMINOPHEN TAB 500 MG TAB PO PRN (09:23)
[2020-04-28] MEDS: MAG HYDROX/AL HYDROX/SIMETH 30 ML CUP PO PRN (09:59)
--- NOTE | 2020-04-28 12:00 | P.HP ---
Psychiatric H&P - . H&P Date: 04/28/20 History & Physical: Allergies Allergy/AdvReac Type Severity Reaction Status Date / Time molindone From Moban Allergy Rash/Hives Verified 04/27/20 11:19 chlorpromazine AdvReac Hallucinati Verified 04/27/20 11:19 From Thorazine ons Vital Signs Temp 97.4 F L 04/28/20 05:10 Pulse 95 04/28/20 05:10 Resp 16 04/28/20 05:10 BP 142/71 04/28/20 05:10 Pulse Ox 98 04/27/20 09:58 Intake & Output 04/27/20 04/28/20 04/28/20 18:59 06:59 18:59 Weight 82.3 kg Laboratory Last Values WBC 11.1 k/uL (3.8-10.6) H 04/27/20 10:24 RBC 4.49 m/uL (4.30-5.90) 04/27/20 10:24 Hgb 14.4 gm/dL (13.0-17.5) 04/27/20 10:24 Hct 42.1 % (39.0-53.0) 04/27/20 10:24 MCV 93.9 fL (80.0-100.0) 04/27/20 10:24 MCH 32.1 pg (25.0-35.0) 04/27/20 10:24 MCHC 34.1 g/dL (31.0-37.0) 04/27/20 10:24 RDW 13.4 % (11.5-15.5) 04/27/20 10:24 Plt Count 232 k/uL (150-450) 04/27/20 10:24 MPV 7.0 04/27/20 10:24 Neutrophils % 69 % 04/27/20 10:24 Lymphocytes % 23 % 04/27/20 10:24 Monocytes % 4 % 04/27/20 10:24 Eosinophils % 3 % 04/27/20 10:24 Basophils % 1 % 04/27/20 10:24 Neutrophils # 7.7 k/uL (1.3-7.7) 04/27/20 10:24 Lymphocytes # 2.5 k/uL (1.0-4.8) 04/27/20 10:24 Monocytes # 0.4 k/uL (0-1.0) 04/27/20 10:24 Eosinophils # 0.3 k/uL (0-0.7) 04/27/20 10:24 Basophils # 0.1 k/uL (0-0.2) 04/27/20 10:24 Sodium 140 mmol/L (137-145) 04/28/20 07:27 Potassium 4.0 mmol/L (3.5-5.1) 04/28/20 07:27 Chloride 106 mmol/L (98-107) 04/28/20 07:27 Carbon Dioxide 26 mmol/L (22-30) 04/28/20 07:27 Anion Gap 8 mmol/L 04/28/20 07:27 BUN 11 mg/dL (9-20) 04/28/20 07:27 Creatinine 0.88 mg/dL (0.66-1.25) 04/28/20 07:27 Est GFR (CKD-EPI)AfAm >90 (>60 ml/min/1.73 sqM) 04/28/20 07:27 Est GFR (CKD-EPI)NonAf 89 (>60 ml/min/1.73 sqM) 04/28/20 07:27 Glucose 85 mg/dL (74-99) 04/28/20 07:27 Calcium 9.9 mg/dL (8.4-10.2) 04/28/20 07:27 Magnesium 2.1 mg/dL (1.6-2.3) 04/27/20 10:24 Total Bilirubin 0.5 mg/dL (0.2-1.3) 04/28/20 07:27 AST 26 U/L (17-59) 04/28/20 07:27 ALT 13 U/L (4-49) 04/28/20 07:27 Alkaline Phosphatase 81 U/L (38-126) 04/28/20 07:27 Total Protein 7.8 g/dL (6.3-8.2) 04/28/20 07:27 Albumin 4.5 g/dL (3.5-5.0) 04/28/20 07:27 Triglycerides 85 mg/dL (<150) 04/28/20 07:27 Cholesterol 178 mg/dL (<200) 04/28/20 07:27 LDL Cholesterol, Calc 104 mg/dL (0-99) H 04/28/20 07:27 HDL Cholesterol 57 mg/dL (40-60) 04/28/20 07:27 Urine Color Colorless 04/27/20 10:24 Urine Appearance Clear (Clear) 04/27/20 10:24 Urine pH 6.5 (5.0-8.0) 04/27/20 10:24 Ur Specific [place] 1.002 (1.001-1.035) 04/27/20 10:24 Urine Protein Negative (Negative) 04/27/20 10:24 Urine Glucose (UA) Negative (Negative) 04/27/20 10:24 Urine Ketones Negative (Negative) 04/27/20 10:24 Urine Blood Negative (Negative) 04/27/20 10:24 Urine Nitrite Negative (Negative) 04/27/20 10:24 Urine Bilirubin Negative (Negative) 04/27/20 10:24 Urine Urobilinogen <2.0 mg/dL (<2.0) 04/27/20 10:24 Ur Leukocyte Esterase Negative (Negative) 04/27/20 10:24 Urine Opiates Screen Not Detected (NotDetected) 04/27/20 10:24 Ur Oxycodone Screen Not Detected (NotDetected) 04/27/20 10:24 Urine Methadone Screen Not Detected (NotDetected) 04/27/20 10:24 Ur Propoxyphene Screen Not Detected (NotDetected) 04/27/20 10:24 Ur Barbiturates Screen Not Detected (NotDetected) 04/27/20 10:24 U Tricyclic Antidepress Not Detected (NotDetected) 04/27/20 10:24 Ur Phencyclidine Scrn Not Detected (NotDetected) 04/27/20 10:24 Ur Amphetamines Screen Not Detected (NotDetected) 04/27/20 10:24 U Methamphetamines Scrn Not Detected (NotDetected) 04/27/20 10:24 U Benzodiazepines Scrn Not Detected (NotDetected) 04/27/20 10:24 [place] <0.2 mmol/L 04/27/20 10:24 Urine Cocaine Screen Not Detected (NotDetected) 04/27/20 10:24 U Marijuana (THC) Screen Not Detected (NotDetected) 04/27/20 10:24 Coronavirus (PCR) Not Detected (Not Detectd) 04/27/20 19:42 04/28/20 11:47 IDENTIFYING DATA: Patient is a 69-year-old, , retired, after making male who was admitted for manic symptoms in the context of nonadherence with treatment. HPI: Patient presented to the hospital 04/27/2020 accompanied by police after the patient has been petitioned by his daughter for increasingly manic behavior in the context of medication nonadherence. The patient's daughter Yoon is his legal guardian and petition the patient. As per petition, the patient stopped taking his psychiatric medications on 04/09/2020 stating that he's been tired of them. The patient has been noted to be very aggressive, yelling, religiously preoccupied, and being very paranoid. Patient has also been noted to be eating less and using a lot of profanity. This provider attempted to interview the patient, but after asking the patient why he stopped his medications, the patient became angry and left the room. Collateral information was provided by the patient's daughter reported that the patient does really well when he is stable on his medications of Risperdal lithium. She reports that when he is stable, the patient is calm, quiet, and very polite. She expresses that she has tried to get him to take his medications. He has been refusing. She is requesting if he can be placed on a long-acting injectable m edication. She reports that the patient has not expressed any suicidal or homicidal ideation, intention, and/or plans. She reports that he does not appear to be expressing any auditory or visual hallucinations. PAST PSYCHIATRIC HISTORY: Patient has been previously diagnosed with bipolar disorder. He was briefly hospitalized on this unit this past November. He has been open with [facility]. His home medications include Risperdal and lithium. PMH: Hypertension ALLERGIES: Chlorpromazine, molindone CHEMICAL DEPENDENCY HISTORY: She has a remote history of marijuana and alcohol use. Patient's daughter reports that the patient is not engaged in any substance abuse at this time. FAMILY PSYCHIATRIC/SUBSTANCE USE HISTORY: Unable to assess at this time. SOCIAL HISTORY: Patient was born and raised in [place], [place]. 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 As per daughter, the patient has 2 children, a boy and a girl. He is currently living with his daughter. He has been 3 times, and is currently from his third marriage. MENTAL STATUS EXAM: General Appearance: Patient appears to be stated age is alert, difficult to direct, and uncooperative. Patient appears to have good hygiene and grooming. Behavior: Patient was initially seated without any agitated behavior but became angry and left the room. Speech: Patient's speech is loud in volume, spontaneous, pressured. Mood/Affect: Patient reports their mood is angry, affect is congruent and expansive. Suicidality/Homicidality: Unable to assess at this time as the patient terminates the interview. Perceptions: Unable to assess at this time as the patient terminates the interview. Though content/process: Flight of ideas, confucianist preoccupation. Memory and concentration: Unable to assess. Concentration is grossly poor. Judgment and insight: Poor STRENGTHS/WEAKNESSES: Strength is that patient has stable housing and a supportive family. Weakness is that patient very limited insight and judgment. INTELLECT: average IMPRESSIONS: Bipolar disorder, type I, current episode manic. PLAN: -Patient is admitted under involuntary status to [facility] for stabilization of psychiatric symptoms and safety. A second certification was completed and along with petition will be filed for court. -Medications : Will start patient on His home medications of lithium 600 mg by mouth twice a day, and Risperdal 3 mg by mouth at bedtime for mood stabilization/psychosis. We will likely transition the patient to Invega Sustenna due to his history of nonadherence with treatment and as per request by the patient's daughter/guardian. -Ativan and Haldol PRN for agitation/aggression -Patient was informed of the risks, benefits and side effects of the medication with the patient's guardian and she verbally consented to taking the medications. -Internal Medicine consult to perform medical evaluation and physical. -SW on board for discharge planning. Encourage patient to participate in groups to work on coping skills.
--- NOTE | 2020-04-28 12:40 | CONS ---
CONSULTATION A 69-year-old white male who was admitted for psychotic behavior, medicine noncompliance, more aggravated and aggressive at home secondary to being noncompliant with his lithium, Risperdal per Police and EMS. Denies suicidal or homicidal ideations. HOME MEDICINES: Cozaar 50 mg daily for hypertension, Lopressor for hypertension 25 daily, Norvasc 10 mg daily, vitamin D 1000 units daily, B12 1000 mcg daily. Vina 600 mg p.o. b.i.d. and Risperdal 3 mg daily. ALLERGIES: MOBAN AND THORAZINE. REVIEW OF SYSTEMS: A 14-point review of systems negative. PAST MEDICAL HISTORY: Hypertension, anxiety, schizophrenia. SOCIAL HISTORY: Current everyday smoker. FAMILY HISTORY: Negative. PHYSICAL EXAMINATION: He is awake, alert, no acute distress. Pupils equal, round, reactive. He is disheveled. Cardiovascular regular rate and rhythm. Lungs are clear. GI is soft. No mass. Musculoskeletal range of motion is fair. Neurologic cranial nerves are intact. Skin warm and dry. Cooperative. Questionable bizarre statements. Temperature 98.3, pulse 80-90, respiratory rate 16-18, blood pressure 130s to 140s over 60s to 70s, O2 98%. Apparently, they found no lithium in the system. He had bizarre thoughts on admission and was acutely psychotic. As far as hypertension, COPD, nicotine addiction and dyslipidemia continue current treatments from home. Hypokalemia will have to be rechecked to make sure that is good. His drug screen is apparently negative. Continue home medicines from home. MMODL / IJN: [id number] /
[2020-04-28 19:11] LABS: Hemoglobin A1C 5.5 % (4.0-6.0)
[2020-04-28] MEDS: risperiDONE 1 MG TAB PO SCH (20:51)
[2020-04-28] MEDS: LORazepam 1 MG TAB PO PRN (22:58)
[2020-04-28] MEDS: HALOPERIDOL LACTATE 5 MG/ML 1 ML VIAL IM PRN (23:10)
[2020-04-28] MEDS ORDERED: LORazepam 2 MG/ML INJ IM STA (23:11)
[2020-04-28] MEDS: LORazepam 2 MG/ML INJ IM PRN (23:13)
[2020-04-29] MEDS: HALOPERIDOL LACTATE 5 MG/ML 1 ML VIAL IM PRN (05:54)
[2020-04-29] MEDS: LORazepam 2 MG/ML INJ IM PRN (05:59)
[2020-04-29] MEDS: CYANOCOBALAMIN 500 MCG TAB PO SCH (11:21)
[2020-04-29] MEDS: METOPROLOL TARTRATE 25 MG TAB PO SCH (11:21)
[2020-04-29] MEDS: LITHIUM CARBONATE 300 MG CAP PO SCH ×2 (11:21→20:42)
[2020-04-29] MEDS: NICOTINE 14MG/24HR PATCH TRANSDERM SCH ×2 (11:21→12:36)
[2020-04-29] MEDS: CHOLECALCIFEROL 1,000 UNIT TAB PO SCH (11:22)
[2020-04-29] MEDS: amLODIPine 10 MG TAB PO SCH (11:22)
[2020-04-29] MEDS: LOSARTAN 50 MG TAB PO SCH (11:22)
--- NOTE | 2020-04-29 11:36 | P.PN ---
Progress Note - Text Progress Note Date: 04/29/20 Interval History: Patient was seen in his bedroom and was directable and agreeable to speak with the junior underwriter in his room. Patient continues to display significant manic symptoms. His speech is noted to be loud and he continues to use profanity. When asked about his daughter, the patient becomes very angry and agitated and was yelling wishing that she was never born. He appears to be more directable today though. He is not reporting any suicidal or homicidal ideation, intention, and/or plan. He is not reporting auditory or visual hallucinations. He continues to be somewhat religiously preoccupied. He has been in adherent with his medications and is not reporting any significant side effects. He denies any chest pain, shortness of breath, or palpitations. Mental Status Exam: General Appearance: Patient appears to be stated age is alert, directable, and more cooperative today. Patient has good hygiene and grooming, is wearing glasses, and is of tall and thin build. Behavior: Patient is intimately agitated but directable. Eye contact is appropriate. Psychomotor activity is continues to be slightly elevated. Speech: Patient's speech is spontaneous, loud, and hyperverbal. Mood/Affect: Mood is irritable, affect is congruent and expansive in range. Suicidality/Homicidality: Patient denies having any suicidal or homicidal ideation intent or plan. Perceptions: Patient denies any visual hallucinations and denies any auditory hallucinations Though content/process: Patient continues to be religiously preoccupied and somewhat grandiose. Memory and concentration: grossly intact for the purposes of this session Judgment and insight: Poor Assessment Bipolar disorder, type I, current episode manic Plan: -Patient continues to meet criteria for inpatient psychiatric admission for symptom stabilization and safety. A second certification was completed and along with the petition was filed for court. -Medications: Continue lithium 600 mg by mouth twice a day for mood stabilization Continue Risperdal 3 mg by mouth at bedtime for stabilization/psychosis with. We will gradually titrate this medication over the weekend. We will likely transition the patient to Invega Sustenna. -When necessary Ativan and Haldol for agitation/aggression. -SW on board for discharge planning. Encouraged the patient to participate in milieu.
[2020-04-29] MEDS: risperiDONE 1 MG TAB PO SCH (20:42)
[2020-04-30] MEDS: amLODIPine 10 MG TAB PO SCH (08:47)
[2020-04-30] MEDS: CHOLECALCIFEROL 1,000 UNIT TAB PO SCH (08:47)
[2020-04-30] MEDS: NICOTINE 14MG/24HR PATCH TRANSDERM SCH (08:48)
[2020-04-30] MEDS: CYANOCOBALAMIN 500 MCG TAB PO SCH (08:48)
[2020-04-30] MEDS: LITHIUM CARBONATE 300 MG CAP PO SCH ×2 (08:48→20:25)
[2020-04-30] MEDS: METOPROLOL TARTRATE 25 MG TAB PO SCH (08:48)
[2020-04-30] MEDS: LOSARTAN 50 MG TAB PO SCH (08:48)
[2020-04-30] MEDS: risperiDONE 1 MG TAB PO SCH ×2 (08:49→20:25)
[2020-04-30] MEDS: ACETAMINOPHEN TAB 500 MG TAB PO PRN (12:32)
--- NOTE | 2020-04-30 12:40 | P.PN ---
Progress Note - Text Progress Note Date: 04/30/20 Clinical Problems: Bipolar disorder type I most recent episode manic with psychotic features, poor compliance with treatment Interim history: I reviewed the medical record and interviewed the patient. He is a 69-year-old -[place] male who has a history of bipolar illness. He presented to the psychiatric unit involuntarily with increasing aggression, agitation, paranoia and religiosity. According to the record's mental status deteriorated after he stopped taking his outpatient psychotropic medications- risperidone and lithium. His only concern during our interview were signs and symptoms of an upper respiratory tract infection. He perseverated about tino a "cold" after "a woman" told him to put "Vicks" in his nose. She requested "something" for his "cold". Earlier this morning nursing reported that he became acutely agitated. He was loud, belligerent and could not be redirected. Nursing called security and administered 5 mg of Haldol and 1 mg of Ativan IM. Security remain on the unit until he calmed. This episode did not require seclusion or restraint. He has been compliant with lithium and risperidone. He slept 4 hours last night. He intermittently attends therapeutic groups and activities. Mental status exam: He presented as a tall and restless elderly [place] male with white hair. She made eye contact and appeared to attend to interview. He was restless but showed no abnormal involuntary movements. Her speech was rapid and slightly slurred. His affect was expansive and irritable. He was ruminative and obsessive. His thinking was concrete, illogical not goal- directed. He did not appear to be responding to internal stimuli. Assessment: He continues to have signs and symptoms of jess Plan: Continue inpatient treatment. Probate hearing pending. Continue lithium 600 mg twice a day and titrated according to clinical response and tolerance. Measure serum lithium level at steady state. Haldol and or Ativan by mouth or IM for agitation or aggression. Encourage participation to groups and activities. Evaluate status response to treatment daily basis.
[2020-04-30] MEDS: LORATADINE 10 MG TAB PO SCH (13:42)
[2020-04-30 16:36] LABS: Appearance,Urine Clear (Clear); Bilirubin,Urine Negative (Negative); Blood,Urine Negative (Negative); Color,Urine Colorless; Glucose,Urine (UA) Negative (Negative); Ketones,Urine Negative (Negative); Leukocyte Esterase,Urine Negative (Negative); Nitrite,Urine Negative (Negative); PH, Urine 6.5 (5.0-8.0); Protein,Urine Negative (Negative); Specific Gravity,Urine 1.001 (1.001-1.035); Urobilinogen,Urine <2.0 mg/dL (<2.0)
[2020-04-30] MEDS: LORazepam 1 MG TAB PO PRN (20:26)
[2020-05-01] MEDS: NICOTINE 14MG/24HR PATCH TRANSDERM SCH (08:25)
[2020-05-01] MEDS: LITHIUM CARBONATE 300 MG CAP PO SCH ×2 (08:26→20:56)
[2020-05-01] MEDS: CHOLECALCIFEROL 1,000 UNIT TAB PO SCH (08:26)
[2020-05-01] MEDS: amLODIPine 10 MG TAB PO SCH (08:26)
[2020-05-01] MEDS: CYANOCOBALAMIN 500 MCG TAB PO SCH (08:26)
[2020-05-01] MEDS: LORATADINE 10 MG TAB PO SCH (08:27)
[2020-05-01] MEDS: METOPROLOL TARTRATE 25 MG TAB PO SCH (08:27)
[2020-05-01] MEDS: LOSARTAN 50 MG TAB PO SCH (08:27)
[2020-05-01] MEDS: risperiDONE 1 MG TAB PO SCH ×2 (08:27→20:56)
--- NOTE | 2020-05-01 14:59 | P.PN ---
Progress Note - Text Progress Note Date: 05/01/20 Clinical Problems: Bipolar disorder type I most recent episode manic with psychotic features, poor compliance with treatment Interim history: I reviewed the medical record and interviewed the patient. I approached him he was in his room singing loudly. He denied problems or concerns. He said no episodes of behavioral dyscontrol over the last 24 hours. He is compliant with prescribed medications. He slept 4 hours last night. He attends therapeutic groups and activities. Mental status exam: He presented as a tall and restless elderly [place] male with white hair. She made eye contact and appeared to attend to interview. He was restless but showed no abnormal involuntary movements. Her speech was rapid and slightly slurred. His affect was expansive. His thinking was concrete, illogical not goal-directed. He did not appear to be responding to internal stimuli. Assessment: He continues to have signs and symptoms of jess Plan: Continue inpatient treatment. Probate hearing pending. Continue lithium 600 mg twice a day and titrated according to clinical response and tolerance. Measure serum lithium level at steady state. Continue risperidone 1 mg daily and 3 mg at bedtime. Haldol and or Ativan by mouth or IM for agitation or aggression. Encourage participation to groups and activities. Evaluate status response to treatment daily basis.
[2020-05-01] MEDS: LORazepam 1 MG TAB PO PRN (20:56)
[2020-05-02] MEDS: NICOTINE 14MG/24HR PATCH TRANSDERM SCH (09:20)
[2020-05-02] MEDS: amLODIPine 10 MG TAB PO SCH (09:20)
[2020-05-02] MEDS: LORATADINE 10 MG TAB PO SCH (09:20)
[2020-05-02] MEDS: METOPROLOL TARTRATE 25 MG TAB PO SCH (09:20)
[2020-05-02] MEDS: CHOLECALCIFEROL 1,000 UNIT TAB PO SCH (09:20)
[2020-05-02] MEDS: LOSARTAN 50 MG TAB PO SCH (09:20)
[2020-05-02] MEDS: risperiDONE 1 MG TAB PO SCH ×2 (09:20→21:44)
[2020-05-02] MEDS: CYANOCOBALAMIN 500 MCG TAB PO SCH (09:21)
[2020-05-02] MEDS: LITHIUM CARBONATE 300 MG CAP PO SCH ×2 (09:21→21:44)
--- NOTE | 2020-05-02 10:10 | P.PN ---
Progress Note - Text Progress Note Date: 05/02/20 Interval History: Patient was seen in his bedroom and was directable and agreeable to speak with the magnetic tape typewriter operator in the office. Patient appears to be less manic today. His speech is still noted to be loud but he is more interruptible today. The patient reports that he is able to speak to his daughter last night and reports no issues. He is not reporting any suicidal or homicidal ideation, intention, and/or plan. He is not reporting any auditory or visual hallucinations. He is less forthcoming with his buddhism preoccupation today. He is not reporting any paranoia or other delusions. He has been in adherent with his medications and is not reporting any significant side effects at this time. He denies any chest pain, shortness breath, or palpitations. Mental Status Exam: General Appearance: Patient appears to be stated age is alert, directable, and more cooperative today. Patient has good hygiene and grooming, is wearing glasses, and is of tall and thin build. Behavior: Patient is less agitated but can be unpredictable. Eye contact is appropriate. Psychomotor activity is continues to be slightly elevated. Speech: Patient's speech is spontaneous, and loud in volume. More interruptible today. Less hyperverbal. Mood/Affect: Mood is "doing okay." Affect is congruent but somewhat irritable. Suicidality/Homicidality: Patient denies having any suicidal or homicidal ideation intent or plan. Perceptions: Patient denies any visual hallucinations and denies any auditory hallucinations Though content/process: Less religiously preoccupied. Thought process appears to be linear and logical in short conversation. Memory and concentration: grossly intact for the purposes of this session Judgment and insight: Poor Assessment Bipolar disorder, type I, current episode manic Plan: -Patient continues to meet criteria for inpatient psychiatric admission for symptom stabilization and safety. A second certification was completed and along with the petition was filed for court. -Medications: Continue lithium 600 mg by mouth twice a day for mood stabilization. We will obtain lithium level. Continue her spell 1 mg by mouth every morning 3 mg by mouth daily at bedtime. We will likely transition the patient to Invega Sustenna due to history of nonadherence with treatment. -When necessary Ativan and Haldol for agitation/aggression. -SW on board for discharge planning. Encouraged the patient to participate in milieu.
[2020-05-03] MEDS: NICOTINE 14MG/24HR PATCH TRANSDERM SCH (09:00)
[2020-05-03] MEDS: amLODIPine 10 MG TAB PO SCH (09:02)
[2020-05-03] MEDS: risperiDONE 1 MG TAB PO SCH ×2 (09:02→21:16)
[2020-05-03] MEDS: CYANOCOBALAMIN 500 MCG TAB PO SCH (09:02)
[2020-05-03] MEDS: LOSARTAN 50 MG TAB PO SCH (09:02)
[2020-05-03] MEDS: LORATADINE 10 MG TAB PO SCH (09:02)
[2020-05-03] MEDS: LITHIUM CARBONATE 300 MG CAP PO SCH ×3 (09:03→21:16)
[2020-05-03] MEDS: METOPROLOL TARTRATE 25 MG TAB PO SCH (09:03)
[2020-05-03] MEDS: CHOLECALCIFEROL 1,000 UNIT TAB PO SCH (09:03)
[2020-05-03] MEDS ORDERED: PALIPERIDONE IM 156 MG/ML SYG IM STA (10:05)
--- NOTE | 2020-05-03 10:06 | P.PN ---
Progress Note - Text Progress Note Date: 05/03/20 Interval History: Patient was seen wandering the hallways and was agreeable to speak with assembly instructions writer in the office. Currently the patient is presenting is pleasant and cooperative. He is not reporting any suicidal or homicidal ideation, intention, and/or plan. He is not reporting any auditory or visual hallucinations. He is not endorsing any paranoia, sabianism by occupation, or other delusions. He is mentioned his medications and is not reporting any significant side effects at this time. He denies any chest pain, sugars breath, or palpitations. Of note, a peer did complain that the patient was loud and hyperverbal last night. He was also noted to be religiously preoccupied The patient was also noted by staff to sleep for 2.5 hours. [place] level was noted to be 1.2. Mental Status Exam: General Appearance: Patient appears to be stated age is alert, directable, and cooperative. Patient has good hygiene and grooming, is wearing glasses, and is of tall and thin build. Behavior: Patient is calmly seated and pleasant. Eye contact is appropriate. Psychomotor activity appears normal. Speech: Patient's speech is spontaneous, and occasionally loud in volume. He is not hyperverbal today. Mood/Affect: Mood is "feeling good." Affect is congruent, bright, slightly expansive. Suicidality/Homicidality: Patient denies having any suicidal or homicidal ideation intent or plan. Perceptions: Patient denies any visual hallucinations and denies any auditory h allucinations Though content/process: Thought process appears linear and logical short conversation. Memory and concentration: grossly intact for the purposes of this session Judgment and insight: Poor Assessment Bipolar disorder, type I, current episode manic Plan: -Patient continues to meet criteria for inpatient psychiatric admission for symptom stabilization and safety. Patient is currently on a deferral. -Medications: Due to the lithium level of 1.2, we'll decrease his lithium to 300 mg by mouth every morning, and 600 mg by mouth daily at bedtime. Due to advanced age, we will administer Invega Sustenna 156 mg IM as initial dose. We will decrease his Risperdal to just 3 mg by mouth at bedtime as we are also decreasing his lithium in order to maintain mood stability and we will not decrease further at this time. -When necessary Ativan and Haldol for agitation/aggression. -SW on board for discharge planning. Encouraged the patient to participate in milieu.
[2020-05-03] MEDS ORDERED: LITHIUM CARBONATE 300 MG CAP PO STA (11:34)
[2020-05-04] MEDS: LORazepam 1 MG TAB PO PRN (00:57)
[2020-05-04] MEDS: NICOTINE 14MG/24HR PATCH TRANSDERM SCH (08:44)
[2020-05-04] MEDS: LITHIUM CARBONATE 300 MG CAP PO SCH ×2 (08:44→20:25)
[2020-05-04] MEDS: LORATADINE 10 MG TAB PO SCH (08:45)
[2020-05-04] MEDS: CYANOCOBALAMIN 500 MCG TAB PO SCH (08:45)
[2020-05-04] MEDS: CHOLECALCIFEROL 1,000 UNIT TAB PO SCH (08:45)
[2020-05-04] MEDS: amLODIPine 10 MG TAB PO SCH (08:45)
[2020-05-04] MEDS: LOSARTAN 50 MG TAB PO SCH (08:45)
[2020-05-04] MEDS: METOPROLOL TARTRATE 25 MG TAB PO SCH (08:45)
--- NOTE | 2020-05-04 10:08 | P.PN ---
Progress Note - Text Progress Note Date: 05/04/20 Interval History: Patient was seen wandering the hallways and was agreeable to speak with staff writer in the office. The patient has been reported by staff to be up at night and intermittently agitated and yelling. Currently the patient is presenting well and is not reporting any suicidal or homicidal ideation, intention, and/or plan. He is not reporting any auditory or visual hallucinations. He reports no delusions or paranoia. The volume of his speech appears normal at this time of interview. Of concern though, the patient does appear to have slurred speech, excessive salivation, and is complaining of drowsiness. He did receive his Invega Sustenna 156 mg IM yesterday. He is otherwise not reporting any chest pain, shortness of breath, or palpitations. He has been in adherent with his medications. Mental Status Exam: General Appearance: Patient appears to be stated age is alert, directable, and cooperative. Patient has good hygiene and grooming, is wearing glasses, and is of tall and thin build. Behavior: Patient is calmly seated and pleasant. Eye contact is appropriate. Psychomotor activity appears normal. Speech: Patient's speech is appears to be slurred but with normal volume. Mood/Affect: Mood is "I'm okay just dizzy." Affect is congruent and with normal range. Suicidality/Homicidality: Patient denies having any suicidal or homicidal ideation intent or plan. Perceptions: Patient denies any visual hallucinations and denies any auditory hallucinations Though content/process: Thought process appears linear and logical short conversation. Memory and concentration: grossly intact for the purposes of this session Judgment and insight: Mildly improving Assessment Bipolar disorder, type I, current episode manic Plan: -Patient continues to meet criteria for inpatient psychiatric admission for symptom stabilization and safety. Patient is currently on a deferral. -Medications: Continue lithium 300 mg by mouth every morning, and 600 mg by mouth daily at bedtime. Patient received Invega Sustenna 156 mg IM on 05/03/2020. Due to excessive salivation, and complaints of dizziness, we will decrease his Risperdal to 1.5 mg by mouth at bedtime. We are currently balancing side effects of medication versus treatment of his jess. We will start Cogentin 0.5 mg by mouth at bedtime for management of EPS symptoms. -When necessary Ativan and Haldol for agitation/aggression. -SW on board for discharge planning. Encouraged the patient to participate in milieu.
[2020-05-04] MEDS: BENZTROPINE MESYLATE 0.5 MG TAB PO SCH (20:24)
[2020-05-04] MEDS: risperiDONE 1 MG TAB PO SCH (20:24)
[2020-05-05] MEDS: NICOTINE 14MG/24HR PATCH TRANSDERM SCH (07:46)
[2020-05-05] MEDS: amLODIPine 10 MG TAB PO SCH (07:48)
[2020-05-05] MEDS: METOPROLOL TARTRATE 25 MG TAB PO SCH (07:48)
[2020-05-05] MEDS: LORATADINE 10 MG TAB PO SCH (07:48)
[2020-05-05] MEDS: CHOLECALCIFEROL 1,000 UNIT TAB PO SCH (07:48)
[2020-05-05] MEDS: CYANOCOBALAMIN 500 MCG TAB PO SCH (07:48)
[2020-05-05] MEDS: LOSARTAN 50 MG TAB PO SCH (07:48)
[2020-05-05] MEDS: LITHIUM CARBONATE 300 MG CAP PO SCH ×2 (07:48→21:05)
--- NOTE | 2020-05-05 09:32 | P.PN ---
Progress Note - Text Progress Note Date: 05/05/20 Interval History: Patient was seen wandering the hallways and was agreeable to speak with writer producer in the office. The patient reports that he is doing well. He states that he is no longer feeling dizzy and is not expressing any drooling. He is not reporting any suicidal or homicidal ideation, intention, and/or plan. He is not reporting any auditory or visual hallucinations at this time. He is denying any paranoia or delusions. He continues care around his Bible and is occasionally religiously preoccupied that this is usually exacerbated by another peer on the unit who is also religiously preoccupied. He is denying any issues with appetite. He has been noted to sleep poorly on occasion. He reports only about 4 hours of sleep. Occasionally he can be heard yelling on the unit. He has been adherent with his medications and is not reporting any significant side effects at this time. He denies any chest pain, shortness of breath, or palpitations. Mental Status Exam: General Appearance: Patient appears to be stated age is alert, directable, and cooperative. Patient has good hygiene and grooming, is wearing glasses, and is of tall and thin build. Behavior: Patient is calmly seated and pleasant. Eye contact is appropriate. Psychomotor activity appears normal. Speech: Patient's speech is clear, fluent, with normal volume. Mood/Affect: Mood is "feeling pretty good." Affect is congruent , bright, with normal range. Suicidality/Homicidality: Patient denies having any suicidal or homicidal ideation intent or plan. Perceptions: Patient denies any visual hallucinations and denies any auditory hallucinations Though content/process: Thought process appears linear and logical short conversation. Memory and concentration: grossly intact for the purposes of this session Judgment and insight: Mildly improving Assessment Bipolar disorder, type I, current episode manic Plan: -Patient continues to meet criteria for inpatient psychiatric admission for symptom stabilization and safety. Patient is currently on a deferral. -Medications: Continue lithium 300 mg by mouth every morning, and 600 mg by mouth daily at bedtime. We will start melatonin 5 mg by mouth at bedtime for insomnia. Patient received Invega Sustenna 156 mg IM on 05/03/2020. Plan is to administer Invega Sustenna 117 mg IM on 05/08/2020 in anticipation for discharge the following day. We will continue Cogentin 0.5 mg by mouth at bedtime for management of EPS symptoms. We will continue Risperdal 1.5 mg by mouth at bedtime at this time for mood stabilization/psychosis. -When necessary Ativan and Haldol for agitation/aggression. -SW on board for discharge planning. Encouraged the patient to participate in milieu.
[2020-05-05] MEDS: risperiDONE 1 MG TAB PO SCH (21:04)
[2020-05-05] MEDS: BENZTROPINE MESYLATE 0.5 MG TAB PO SCH (21:05)
[2020-05-06] MEDS: LORazepam 1 MG TAB PO PRN ×2 (00:40→23:29)
[2020-05-06] MEDS: LOSARTAN 50 MG TAB PO SCH (08:35)
[2020-05-06] MEDS: NICOTINE 14MG/24HR PATCH TRANSDERM SCH (08:35)
[2020-05-06] MEDS: LITHIUM CARBONATE 300 MG CAP PO SCH ×2 (08:36→21:10)
[2020-05-06] MEDS: METOPROLOL TARTRATE 25 MG TAB PO SCH (08:37)
[2020-05-06] MEDS: amLODIPine 10 MG TAB PO SCH (08:37)
[2020-05-06] MEDS: LORATADINE 10 MG TAB PO SCH (08:37)
[2020-05-06] MEDS: CYANOCOBALAMIN 500 MCG TAB PO SCH (08:37)
[2020-05-06] MEDS: CHOLECALCIFEROL 1,000 UNIT TAB PO SCH (08:37)
[2020-05-06 08:44] VITALS: BMI 26.5
--- NOTE | 2020-05-06 09:52 | P.PN ---
Progress Note - Text Progress Note Date: 05/06/20 Interval History: Patient was seen wandering the hallways and was agreeable to speak with loan underwriter in the office. She continues to report that he is doing well. Of note, the patient has been displaying increasingly manic symptoms including being hyperverbal and loud and euphoric. He appears to be interacting with a peer that encourages this behavior. The patient has been noted to be in the hallway repeating after himself "I think I can, I think I can, I think I can." He has been documented to slept for 6.5 hours. He is currently not reporting any suicidal or homicidal ideation, intention, and/or plan. He is not reporting auditory or visual hallucinations. He does state that he occasionally "sees dots in front of my eyes" and begins to rant about how a physician 15 years ago gave him a medication that caused this. He is unable to determine what the medication was. He is otherwise adherent with his medications and is not reporting any significant side effects at this time. Mental Status Exam: General Appearance: Patient appears to be stated age is alert, directable, and cooperative. Patient has good hygiene and grooming, is wearing glasses, and is of tall and thin build. Behavior: Patient is calmly seated and pleasant. Eye contact is appropriate. Psychomotor activity appears normal. Speech: Patient's speech is clear, fluent, but loud in volume. Mood/Affect: Mood is "doing great!" Affect is congruent, expansive, and euphoric. Suicidality/Homicidality: Patient denies having any suicidal or homicidal ideation intent or plan. Perceptions: Patient denies any visual hallucinations and denies any auditory hallucinations Though content/process: Thought process appears linear and logical short conversation. Memory and concentration: grossly intact for the purposes of this session Judgment and insight: Mildly improving Assessment Bipolar disorder, type I, current episode manic Plan: -Patient continues to meet criteria for inpatient psychiatric admission for symptom stabilization and safety. Patient is currently on a deferral. -Medications: Continue lithium 300 mg by mouth every morning, and 600 mg by mouth daily at bedtime. [place] level ordered for tomorrow. Continue melatonin 5 mg by mouth at bedtime for insomnia. Patient received Invega Sustenna 156 mg IM on 05/03/2020. Plan is to administer Invega Sustenna 117 mg IM on 05/08/2020 in anticipation for discharge the following day. We will continue Cogentin 0.5 mg by mouth at bedtime for management of EPS symptoms. We will increase Risperdal to 0.5 mg by mouth every morning and continue Risperdal 1.5 mg by mouth at bedtime at this time for mood stabilization/psychos is. -When necessary Ativan and Haldol for agitation/aggression. -SW on board for discharge planning. Encouraged the patient to participate in milieu.
[2020-05-06] MEDS: risperiDONE 1 MG TAB PO SCH (21:09)
[2020-05-06] MEDS: BENZTROPINE MESYLATE 0.5 MG TAB PO SCH (21:09)
[2020-05-07] MEDS: CYANOCOBALAMIN 500 MCG TAB PO SCH (08:36)
[2020-05-07] MEDS: METOPROLOL TARTRATE 25 MG TAB PO SCH (08:36)
[2020-05-07] MEDS: NICOTINE 14MG/24HR PATCH TRANSDERM SCH (08:36)
[2020-05-07] MEDS: LOSARTAN 50 MG TAB PO SCH (08:37)
[2020-05-07] MEDS: LORATADINE 10 MG TAB PO SCH (08:37)
[2020-05-07] MEDS: CHOLECALCIFEROL 1,000 UNIT TAB PO SCH (08:37)
[2020-05-07] MEDS: LITHIUM CARBONATE 300 MG CAP PO SCH ×2 (08:37→20:58)
[2020-05-07] MEDS: amLODIPine 10 MG TAB PO SCH (08:37)
[2020-05-07] MEDS ORDERED: risperiDONE 0.5 MG TAB PO SCH (09:00)
--- NOTE | 2020-05-07 10:49 | P.PN ---
Progress Note - Text Progress Note Date: 05/07/20 Interval history: Patient was seen in his room and was directable and agreeable to speak with headline writer. Patient reports that he is feeling "really well." She continues to present as bright. He is not reporting any suicidal or homicidal ideation, and intention, and/or plan. He denies any issues with sleep or appetite. He is not reporting auditory or visual hallucinations. He has been adherent with his medications and is not reporting any somatic and side effects at this time. [place] level was reviewed and his last level was 0.8. The patient is agreeable to the plan of receiving his second dose of Invega Sustenna with plans to discharge him on Saturday. Mental status exam: General Appearance: Patient appears to be stated age is alert, directable, and cooperative. Good hygiene and grooming. Behavior: No agitated behavior. Patient is calm and directable Speech: Patient's speech is fluent and nonpressured. Mood/Affect: Mood is really good, affect is congruent and bright. Suicidality/Homicidality: Patient denies having any suicidal or homicidal ideation intent or plan. Perceptions: Patient denies any auditory or visual hallucinations. Though content/process: There is no evidence of any delusional thought content and thought process is linear and goal-directed. Memory and concentration: AOX3, grossly intact for the purposes of this session Judgment and insight: improving mildly Assessment/Plan: Continue with current diagnosis. Patient continues to meet criteria for inpatient psychiatric admission for symptom stabilization and safety. The patient will be maintained on his current psychotropic regimen. [place] 0.8. We will administer Invega Sustenna 117 mg IM tomorrow. We will decrease his Risperdal to 1.5 mg by mouth at bedtime. Monitor for medication compliance and for any psychotropic medication side effects. Will continue to mo nitor ongoing response to treatment. Encouraged participation in milieu.
[2020-05-07] MEDS: ACETAMINOPHEN TAB 500 MG TAB PO PRN (19:45)
[2020-05-07] MEDS: BENZTROPINE MESYLATE 0.5 MG TAB PO SCH (20:58)
[2020-05-07] MEDS: risperiDONE 1 MG TAB PO SCH (20:58)
[2020-05-08 03:04] VITALS: RESP 18
[2020-05-08] MEDS: NICOTINE 14MG/24HR PATCH TRANSDERM SCH (08:06)
[2020-05-08] MEDS: LOSARTAN 50 MG TAB PO SCH (08:06)
[2020-05-08] MEDS: amLODIPine 10 MG TAB PO SCH (08:06)
[2020-05-08] MEDS: CYANOCOBALAMIN 500 MCG TAB PO SCH (08:06)
[2020-05-08] MEDS: LITHIUM CARBONATE 300 MG CAP PO SCH ×2 (08:06→21:15)
[2020-05-08] MEDS: LORATADINE 10 MG TAB PO SCH (08:06)
[2020-05-08] MEDS: METOPROLOL TARTRATE 25 MG TAB PO SCH (08:06)
[2020-05-08] MEDS: CHOLECALCIFEROL 1,000 UNIT TAB PO SCH (08:06)
[2020-05-08] MEDS ORDERED: PALIPERIDONE IM 156 MG/ML SYG IM STA (10:08)
[2020-05-08] MEDS ORDERED: PALIPERIDONE IM 234 MG/1.5 ML SYG IM STA (10:08)
--- NOTE | 2020-05-08 10:47 | P.PN ---
Progress Note - Text Progress Note Date: 05/08/20 Interval history: Patient was seen in his room and was directable and agreeable to speak with investment underwriter. Patient reports that he is feeling "better than yesterday!" Patient is currently not reporting any suicidal or homicidal ideation, intention, and/or plan. He denies any issues with sleep or appetite. The patient is not reporting any auditory or visual hallucinations. He is denying any paranoia or delusions. He continues to occasionally be religiously preoccupied well in the hallway but has been less intrusive and loud overall. The patient is agreeable to the plan of receiving a second dose of Invega Sustenna. He states that he has spoken with his daughter and that she tested negative for covid. He is excited for discharge. Mental status exam: General Appearance: Patient appears to be stated age is alert, directable, and cooperative. Good hygiene and grooming. Behavior: No agitated behavior. Patient is calm and directable Speech: Patient's speech is fluent and nonpressured. Mood/Affect: Mood is really good, affect is congruent and bright. Suicidality/Homicidality: Patient denies having any suicidal or homicidal ideation intent or plan. Perceptions: Patient denies any auditory or visual hallucinations. Though content/process: There is no evidence of any delusional thought content and thought process is linear and goal-directed. Memory and concentration: AOX3, grossly intact for the purposes of this session Judgment and insight: improving mildly Assessment/Plan: Continue with current diagnosis. Patient continues to meet criteria for inpatient psychiatric admission for symptom stabilization and safety. The patient will be maintained on his current psychotropic regimen. [place] 0.8. The pharmacy does not have Invega Sustenna 117 mg IM on the formulary. We will administer Invega Sustenna 156 mg IM instead and we will discontinue Risperdal at this time. Continue lithium. Monitor for medication compliance and for any psychotropic medication side effects. Will continue to monitor ongoing response to treatment. Encouraged participation in milieu.
[2020-05-08] MEDS ORDERED: risperiDONE 1 MG TAB PO SCH (21:00)
[2020-05-08] MEDS: BENZTROPINE MESYLATE 0.5 MG TAB PO SCH (21:14)
[2020-05-08] MEDS: ACETAMINOPHEN TAB 500 MG TAB PO PRN (21:53)
[2020-05-09 06:30] VITALS: BP 144/69; PULSE 62
[2020-05-09] MEDS: NICOTINE 14MG/24HR PATCH TRANSDERM SCH (08:54)
[2020-05-09] MEDS: CHOLECALCIFEROL 1,000 UNIT TAB PO SCH (08:54)
[2020-05-09] MEDS: amLODIPine 10 MG TAB PO SCH (08:54)
[2020-05-09] MEDS: CYANOCOBALAMIN 500 MCG TAB PO SCH (08:55)
[2020-05-09] MEDS: LITHIUM CARBONATE 300 MG CAP PO SCH (08:56)
[2020-05-09] MEDS: LORATADINE 10 MG TAB PO SCH (08:56)
[2020-05-09] MEDS: LOSARTAN 50 MG TAB PO SCH (08:56)
[2020-05-09] MEDS: METOPROLOL TARTRATE 25 MG TAB PO SCH (08:56)
--- NOTE | 2020-05-09 10:34 | P.DS ---
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 Patient presented to the hospital 04/27/2020 accompanied by police after the patient has been petitioned by his daughter for increasingly manic behavior in the context of medication nonadherence. The patient's daughter Yoon is his legal guardian and petition the patient. As per petition, the patient stopped taking his psychiatric medications on 04/09/2020 stating that he's been tired of them. The patient has been noted to be very aggressive, yelling, religiously preoccupied, and being very paranoid. Patient has also been noted to be eating less and using a lot of profanity. This provider attempted to interview the patient, but after asking the patient why he stopped his medications, the patient became angry and left the room. Collateral information was provided by the patient's daughter reported that the patient does really well when he is stable on his medications of Risperdal lithium. She reports that when he is stable, the patient is calm, quiet, and very polite. She expresses that she has tried to get him to take his medications. He has been refusing. She is requesting if he can be placed on a long-acting injectable medication. She reports that the patient has not expressed any suicidal or homicidal ideation, intention, and/or plans. She reports that he does not appear to be expressing any auditory or visual hallucinations." Hospital course: Upon admission to the unit patient was initially manic, intrusive, and easily agitated. The patient terminated the initial psychiatric evaluation early. Patient was however adherent with medications that were being prescribed on the unit. The patient was started on his home medication of lithium and Risperdal. Due to his history of nonadherence with treatment, the plan was to transition the patient to Invega Sustenna. Over the course of the hospitalization, as the patient was adherent with his medications, he gradually improved in terms of his mood stability. The patient became more compliant and less agitated. The patient was given the initial dose of Invega Sustenna 156 mg IM due to his advanced age rather than the usual 234 mg IM. The patient did appear to have significant side effects including drooling and slurred speech. He also endorsed lightheadedness. His oral Risperdal was decreased and a lithium level was found to be 1.2. His lithium was therefore decreased as well. The patient was started on Cogentin. He did well on this regimen and began tolerating his medications well and no longer endorsed any slurred speech, drooling, or lightheadedness. He appeared to be stable on the unit protocol occasionally be encouraged to be religiously preoccupied by a peer. He received a second dose of Invega Sustenna 156 mg IM on 05/08/2020. On the day of discharge, the patient appears to be tolerating his medications well and is not endorsing any significant side effects. He denies any chest pain, tremors of breath, or palpitations. He is not reporting any suicidal or homicidal ideation, intention, and/or plan. He is not reporting any auditory or visual hallucinations. He does not appear to be religiously preoccupied and is not endorsing any paranoia or other delusions. He was encouraged to be compliant with his medications and follow-up appointments. Prior to discharge, family neri raza will be arranged by the psychiatric social worker to answer any questions and ensure safety upon discharge. Mental status exam: General Appearance: Patient appears to be stated age is alert, pleasant, and c ooperative. Patient is in no acute distress and has fair hygiene and grooming Behavior: Patient is calmly seated without any agitated behavior. Speech: Patient's speech is fluent and nonpressured. Mood/Affect: Patient reports their mood is "feeling really good", affect is congruent, euthymic to bright. Suicidality/Homicidality: Patient denies having any suicidal or homicidal ideation intent or plan. Perceptions: Patient denies any auditory or visual hallucinations. Though content/process: There is no evidence of any delusional thought content and thought process is linear and goal-directed. Memory and concentration: AOX3, grossly intact for the purposes of this session. Can spell "WORLD" backwards correctly. Judgment and insight: Improved with guarded prognosis Impression: Bipolar disorder, type I, manic episode Plan: -Continue with discharge today as patient has improved and stabilized psychiatrically and is not currently an imminent threat to himself and/or others. Patient will remain at chronically elevated risk for harm to self and/or others due to his history of nonadherence to treatment. -Continue medications: [place] 300 mg by mouth every morning, 600 mg by mouth daily at bedtime for mood stabilization. Last lithium level 0.8. Invega Sustenna 156 mg IM administered on 05/08/2020. Next dose of Invega Sustenna 117 mg IM due on 06/05/2020. -Patient was counseled on the need for medication compliance and appropriate follow-up at mental health and also primary care for medical issues. Patient verbalized understanding and agreed. -Social work to arrange for and conduct family meeting to ensure safety upon discharge and answer any questions/concerns. Social work also to arrange for patients follow up appointments with [facility] for psychiatric care along with follow up with primary care provider. -Patient counseled on abstaining from recreational drugs and marijuana and alcohol. Was informed/educated on the adverse effects on their physical and mental health. Patient verbally agreed and understood. -Patient was instructed to return to the hospital or seek immediate medical care if their psychiatric or medical symptoms do worsen or reoccur. -Psychoeducation and supportive therapy provided to patient. Risks and benefits of pharmacological treatment versus the risks and benefits of nontreatment weight and discussed. Informed consent discussion held. Common side effects of psychotropics discussed such as, but not limited to headache, GI disturbance, sexual dysfunction, movement disorders, sedation, and orthostatic hypotension. Life threatening and blackbox warnings of prescribed medications also discussed. Potential risks of operating a vehicle or heavy machinery discussed with patient at length. Advised on importance of compliance and a reliable and responsible manner. Patient advised to review FDA consumer labeling of all medications prior to taking. Patient verbalized understanding of potential risks, and agrees with current treatment plan. Patient advised to medically contact physician/emergency personnel if any acute changes in condition occur. Vital Signs Temp 97.3 F L 05/09/20 06:13 Pulse 62 05/09/20 06:13 Resp 18 05/09/20 06:13 BP 144/69 05/09/20 06:13 Pulse Ox 96 05/08/20 02:57 Intake & Output 05/08/20 05/09/20 05/09/20 18:59 06:59 18:59 Weight 86.381 kg Laboratory Results WBC 11.1 k/uL (3.8-10.6) H 04/27/20 10:24 RBC 4.49 m/uL (4.30-5.90) 04/27/20 10:24 Hgb 14.4 gm/dL (13.0-17.5) 04/27/20 10:24 Hct 42.1 % (39.0-53.0) 04/27/20 10:24 MCV 93.9 fL (80.0-100.0) 04/27/20 10:24 MCH 32.1 pg (25.0-35.0) 04/27/20 10:24 MCHC 34.1 g/dL (31.0-37.0) 04/27/20 10:24 RDW 13.4 % (11.5-15.5) 04/27/20 10:24 Plt Count 232 k/uL (150-450) 04/27/20 10:24 MPV 7.0 04/27/20 10:24 Neutrophils % 69 % 04/27/20 10:24 Lymphocytes % 23 % 04/27/20 10:24 Monocytes % 4 % 04/27/20 10:24 Eosinophils % 3 % 04/27/20 10:24 Basophils % 1 % 04/27/20 10:24 Neutrophils # 7.7 k/uL (1.3-7.7) 04/27/20 10:24 Lymphocytes # 2.5 k/uL (1.0-4.8) 04/27/20 10:24 Monocytes # 0.4 k/uL (0-1.0) 04/27/20 10:24 Eosinophils # 0.3 k/uL (0-0.7) 04/27/20 10:24 Basophils # 0.1 k/uL (0-0.2) 04/27/20 10:24 Sodium 140 mmol/L (137-145) 04/28/20 07:27 Potassium 4.0 mmol/L (3.5-5.1) 04/28/20 07:27 Chloride 106 mmol/L (98-107) 04/28/20 07:27 Carbon Dioxide 26 mmol/L (22-30) 04/28/20 07:27 Anion Gap 8 mmol/L 04/28/20 07:27 BUN 11 mg/dL (9-20) 04/28/20 07:27 Creatinine 0.88 mg/dL (0.66-1.25) 04/28/20 07:27 Est GFR (CKD-EPI)AfAm >90 (>60 ml/min/1.73 sqM) 04/28/20 07:27 Est GFR (CKD-EPI)NonAf 89 (>60 ml/min/1.73 sqM) 04/28/20 07:27 Glucose 85 mg/dL (74-99) 04/28/20 07:[address] Glu mg/dL 111 04/28/20 07:27 Hemoglobin A1c 5.5 % (4.0-6.0) 04/28/20 07:27 Calcium 9.9 mg/dL (8.4-10.2) 04/28/20 07:27 Magnesium 2.1 mg/dL (1.6-2.3) 04/27/20 10:24 Total Bilirubin 0.5 mg/dL (0.2-1.3) 04/28/20 07:27 AST 26 U/L (17-59) 04/28/20 07:27 ALT 13 U/L (4-49) 04/28/20 07:27 Alkaline Phosphatase 81 U/L (38-126) 04/28/20 07:27 Total Protein 7.8 g/dL (6.3-8.2) 04/28/20 07:27 Albumin 4.5 g/dL (3.5-5.0) 04/28/20 07:27 Triglycerides 85 mg/dL (<150) 04/28/20 07:27 Cholesterol 178 mg/dL (<200) 04/28/20 07:27 LDL Cholesterol, Calc 104 mg/dL (0-99) H 04/28/20 07:27 HDL Cholesterol 57 mg/dL (40-60) 04/28/20 07:27 Urine Color Colorless 04/30/20 16:20 Urine Appearance Clear (Clear) 04/30/20 16:20 Urine pH 6.5 (5.0-8.0) 04/30/20 16:20 Ur Specific [place] 1.001 (1.001-1.035) 04/30/20 16:20 Urine Protein Negative (Negative) 04/30/20 16:20 Urine Glucose (UA) Negative (Negative) 04/30/20 16:20 Urine Ketones Negative (Negative) 04/30/20 16:20 Urine Blood Negative (Negative) 04/30/20 16:20 Urine Nitrite Negative (Negative) 04/30/20 16:20 Urine Bilirubin Negative (Negative) 04/30/20 16:20 Urine Urobilinogen <2.0 mg/dL (<2.0) 04/30/20 16:20 Ur Leukocyte Esterase Negative (Negative) 04/30/20 16:20 Urine Opiates Screen Not Detected (NotDetected) 04/27/20 10:24 Ur Oxycodone Screen Not Detected (NotDetected) 04/27/20 10:24 Urine Methadone Screen Not Detected (NotDetected) 04/27/20 10:24 Ur Propoxyphene Screen Not Detected (NotDetected) 04/27/20 10:24 Ur Barbiturates Screen Not Detected (NotDetected) 04/27/20 10:24 U Tricyclic Antidepress Not Detected (NotDetected) 04/27/20 10:24 Ur Phencyclidine Scrn Not Detected (NotDetected) 04/27/20 10:24 Ur Amphetamines Screen Not Detected (NotDetected) 04/27/20 10:24 U Methamphetamines Scrn Not Detected (NotDetected) 04/27/20 10:24 U Benzodiazepines Scrn Not Detected (NotDetected) 04/27/20 10:24 [place] 0.8 mmol/L 05/07/20 07:15 Urine Cocaine Screen Not Detected (NotDetected) 04/27/20 10:24 U Marijuana (THC) Screen Not Detected (NotDetected) 04/27/20 10:24 Coronavirus (PCR) Not Detected (Not Detectd) 04/27/20 19:42 Allergies Allergy/AdvReac Type Severity Reaction Status Date / Time molindone [From [facility]] Allergy Rash/Hives Verified 05/08/20 10:22 chlorpromazine AdvReac Hallucinati Verified 05/08/20 10:22 [From Thorazine] ons Patient Condition at Discharge: Stable Plan - Discharge Summary Discharge Rx Participant: Yes New Discharge Prescriptions: New Loratadine [Claritin] 10 mg PO DAILY 30 Days tab Nicotine 14Mg/24Hr Patch [Habitrol] 1 patch TRANSDERM DAILY 30 Days patch [place] Carbonate 600 mg PO HS 30 Days cap [place] Carbonate 300 mg PO DAILY 30 Days cap Paliperidone Palmitate [Invega Sustenna] 117 mg IM QMONTHLY #1 syr Continue Losartan [Cozaar] 50 mg PO DAILY 30 Days tab Metoprolol Tartrate [Lopressor] 25 mg PO DAILY 30 Days tab amLODIPine [Norvasc] 10 mg PO DAILY 30 Days tab Discontinued [place] Carbonate 600 mg PO BID Cyanocobalamin (Vitamin B-12) [Vitamin B-12] 1,000 mcg PO DAILY Cholecalciferol [Vitamin D3 (25 Mcg = 1000 Iu)] 1,000 unit PO DAILY risperiDONE 3 mg PO HS Discharge Medication List [place] Carbonate 300 mg PO DAILY 30 Days cap 05/09/20 [Rx] [place] Carbonate 600 mg PO HS 30 Days cap 05/09/20 [Rx] Loratadine [Claritin] 10 mg PO DAILY 30 Days tab 05/09/20 [Rx] Losartan [Cozaar] 50 mg PO DAILY 30 Days tab 05/09/20 [Rx] Metoprolol Tartrate [Lopressor] 25 mg PO DAILY 30 Days tab 05/09/20 [Rx] Nicotine 14Mg/24Hr Patch [Habitrol] 1 patch TRANSDERM DAILY 30 Days patch 05/09/20 [Rx] Paliperidone Palmitate [Invega Sustenna] 117 mg IM QMONTHLY #1 syr 05/09/20 [Rx] amLODIPine [Norvasc] 10 mg PO DAILY 30 Days tab 05/09/20 [Rx] Follow up Appointment(s)/Referral(s): Nonstaff,Physician [Primary Care Provider] - 1-2 days Patient Instructions/Handouts: How to Stop Smoking (DC) Activity/Diet/Wound Care/Special Instructions: Activity and diet as tolerated. Avoid the use of street drugs and alcohol. Take all medications as prescribed. When you are in need of refills on your medications please contact your medical provider and/or outpatient psychiatrist to have this done. Please go to scheduled outpatient appointment for aftercare treatment. If symptoms return or become worse, call the crisis line at and/or go to the nearest emergency room for evaluation. Discharge Disposition: HOME SELF-CARE
[2020-05-09 12:56] VITALS: TEMP 96.4
== END 2020-05-09 15:37 | disposition home or self-care (01) | DRG 885 ==
LOC: EC 09:54 → 3MHU 14:06
PROVIDERS: ADMIT Psychiatry & Neurology Psychiatry; ATTEND Psychiatry & Neurology Psychiatry
DX: F31.2 Bipolar disorder, current episode manic severe with psychotic features (principal); Z91.128 Patient's intentional underdosing of medication regimen for other reason; J44.9 Chronic obstructive pulmonary disease, unspecified; E78.5 Hyperlipidemia, unspecified; E87.6 Hypokalemia; I10 Essential (primary) hypertension; T43.596A Underdosing of other antipsychotics and neuroleptics, initial encounter; G47.00 Insomnia, unspecified; R47.81 Slurred speech; K11.7 Disturbances of salivary secretion; F41.9 Anxiety disorder, unspecified; Z20.828 Contact with and (suspected) exposure to other viral communicable diseases; F17.200 Nicotine dependence, unspecified, uncomplicated; Z71.6 Tobacco abuse counseling; Z79.899 Other long term (current) drug therapy; Z88.8 Allergy status to other drugs, medicaments and biological substances
CPT/HCPCS: 36415; 80053; 80061; 80178; 80306; 81003; 82075; 83036; 83735; 85025; 87635; 99285

== ENCOUNTER → 2020-10-28 | Outpatient (CLI) | payer MEDICARE, OTHER | END | disposition home or self-care (01) | CPT/HCPCS: 71271; 93306 ==

== ENCOUNTER 2021-01-22 16:59 | Inpatient (IN) | payer MEDICARE, OTHER ==
--- NOTE | 2021-01-22 19:09 | ED ---
Psych HPI - General Chief Complaint: Psychiatric Symptoms Stated Complaint: mental health Time Seen by Provider: 01/22/21 17:59 Source: police Mode of arrival: ambulatory - History of Present Illness Initial Comments: 70-year-old male presents to the emergency department for psychiatric evaluation. Patient reports he decided to stop taking his Depakote and Risperdal. Patient reports he spoke to his psychiatrist and informed them that the medication did not improve his symptoms. Patient reports he feels much better after stopping to take medication. He denies any homicidal, suicidal thoughts or ideations at this time. Patient was brought to the ED by special police. - Related Data Previous Rx's Medication Instructions Recorded Winston Carbonate 300 mg PO DAILY 30 Days cap 05/09/20 Winston Carbonate 600 mg PO HS 30 Days cap 05/09/20 Loratadine [Claritin] 10 mg PO DAILY 30 Days tab 05/09/20 Losartan [Cozaar] 50 mg PO DAILY 30 Days tab 05/09/20 Metoprolol Tartrate [Lopressor] 25 mg PO DAILY 30 Days tab 05/09/20 Nicotine 14Mg/24Hr Patch [Habitrol] 1 patch TRANSDERM DAILY 30 Days 05/09/20 patch Paliperidone Palmitate [Invega 117 mg IM QMONTHLY #1 syr 05/09/20 Sustenna] amLODIPine [Norvasc] 10 mg PO DAILY 30 Days tab 05/09/20 Allergies Allergy/AdvReac Type Severity Reaction Status Date / Time molindone [From Moban] Allergy Rash/Hives Verified 01/22/21 17:05 chlorpromazine AdvReac Hallucinati Verified 01/22/21 17:05 [From Thorazine] ons Review of Systems ROS Statement: Those systems with pertinent positive or pertinent negative responses have been documented in the HPI. ROS Other: All systems not noted in ROS Statement are negative. Past Medical History Past Medical History: Hypertension History of Any Multi-Drug Resistant Organisms: None Reported Past Surgical History: Heart Catheterization Past Psychological History: Anxiety, Schizophrenia Smoking Status: Current every day smoker Past Alcohol Use History: None Reported Past Drug Use History: None Reported - Past Family History Family Family Medical History: Unable to Obtain General Exam Limitations: no limitations General appearance: alert, in no apparent distress Head exam: Present: atraumatic, normocephalic, normal inspection Eye exam: Present: normal appearance, PERRL, EOMI Pupils: Present: normal accommodation ENT exam: Present: normal exam, normal oropharynx, mucous membranes moist Neck exam: Present: normal inspection, full ROM. Absent: lymphadenopathy Respiratory exam: Present: normal lung sounds bilaterally. Absent: respiratory distress Cardiovascular Exam: Present: regular rate, normal rhythm, normal heart sounds. Absent: systolic murmur Extremities exam: Present: normal inspection, full ROM, normal capillary refill. Absent: tenderness Back exam: Present: normal inspection, full ROM Neurological exam: Present: alert, oriented X3 Psychiatric exam: Present: normal affect, normal mood Skin exam: Present: warm, dry, intact, normal color Course Vital Signs 01/22/21 17:02 Temperature 98.2 F Pulse Rate 98 Respiratory 18 Rate Blood Pressure 147/70 O2 Sat by Pulse 100 Oximetry Medical Decision Making - Medical Decision Making 70-year-old male presents to the emergency department for psychiatric evaluation. Physical examination is unremarkable. Patient does not have any homicidal, suicidal thoughts or ideations. EPS evaluated patient and He will be admitted for further psychiatric management. Drug screen negative. Valproic acid lithium and subtherapeutic levels. Case discussed with physician - Lab Data Lab Results 01/22/21 01/22/21 Range/Units 18:43 18:43 Urine Opiates Screen Not Detected (NotDetected) Ur Oxycodone Screen Not Detected (NotDetected) Urine Methadone Screen Not Detected (NotDetected) Ur Propoxyphene Screen Not Detected (NotDetected) Ur Barbiturates Screen Not Detected (NotDetected) Valproic Acid <10.0 ug/mL U Tricyclic Antidepress Not Detected (NotDetected) Ur Phencyclidine Scrn Not Detected (NotDetected) Ur Amphetamines Screen Not Detected (NotDetected) U Methamphetamines Scrn Not Detected (NotDetected) U Benzodiazepines Scrn Not Detected (NotDetected) Winston <0.2 mmol/L Urine Cocaine Screen Not Detected (NotDetected) U Marijuana (THC) Screen Not Detected (NotDetected) Disposition Clinical Impression: Adjustment reaction of adult life Disposition: ADMITTED IP TO THIS [facility] Condition: Stable Is patient prescribed a controlled substance at d/c from ED?: No Referrals: Carol Stevens MD [Primary Care Provider] - 1-2 days Time of Disposition: 21:28
[2021-01-22 19:17] LABS: Lithium <0.2 mmol/L
[2021-01-22 19:25] LABS: Valproic Acid (Depakene) <10.0 ug/mL
[2021-01-22 21:21] LABS: Amphetamine Screen,Urine Not Detected (NotDetected); Barbiturate Screen,Urine Not Detected (NotDetected); Benzodiazepines Screen,Urine Not Detected (NotDetected); Cocaine Screen,Urine Not Detected (NotDetected); Methadone Screen, Urine Not Detected (NotDetected); Opiate Screen,Urine Not Detected (NotDetected); Oxycodone Screen, Urine Not Detected (NotDetected); Phencyclidine Screen,Urine Not Detected (NotDetected); Tricyclic Antidepressant,Urine Not Detected (NotDetected); Urn Cannabinoid Scrn Not Detected (NotDetected)
[2021-01-23] MEDS ORDERED: ACETAMINOPHEN TAB 325 MG TAB PO PRN (00:33)
[2021-01-23] MEDS ORDERED: LORazepam 1 MG TAB PO PRN (00:33)
[2021-01-23] MEDS ORDERED: MAG HYDROX/AL HYDROX/SIMETH 30 ML CUP PO PRN (00:33)
[2021-01-23] MEDS ORDERED: MAGNESIUM HYDROXIDE 2,400 MG/10 ML CUP PO PRN (00:33)
[2021-01-23] MEDS ORDERED: LORazepam 2 MG/ML INJ IM PRN (00:36)
[2021-01-23] MEDS ORDERED: HALOPERIDOL LACTATE 5 MG/ML 1 ML VIAL IM PRN (00:37)
[2021-01-23 07:22] VITALS: RESP 16
[2021-01-23 10:24] LABS: Basophils % (A) 0 %; Eosinophils # (A) 0.2 k/uL (0-0.7); Eosinophils % (A) 2 %; HCT 41.5 % (39.0-53.0); HGB 13.7 gm/dL (13.0-17.5); Lymphocytes # (A) 1.7 k/uL (1.0-4.8); Lymphocytes % (A) 16 %; MCHC 33.1 g/dL (31.0-37.0); MCV 96.6 fL (80.0-100.0); Monocytes # (A) 0.3 k/uL (0-1.0); Monocytes % (A) 3 %; Neutrophils # (A) 8.2 k/uL (1.3-7.7); Neutrophils % (A) 79 %; Platelet Count 183 k/uL (150-450); RDW 13.8 % (11.5-15.5); WBC 10.4 k/uL (3.8-10.6)
[2021-01-23 10:39] LABS: ALT 20 U/L (4-49); AST 27 U/L (17-59); African American GFR (CKD) >90 (>60 ml/min/1.73 sqM); Alkaline Phosphatase 67 U/L (38-126); Anion Gap 9 mmol/L; Blood Urea Nitrogen 11 mg/dL (9-20); Calcium 9.9 mg/dL (8.4-10.2); Carbon Dioxide 22 mmol/L (22-30); Chloride 110 mmol/L (98-107); Glucose 167 mg/dL (74-99); Non-African American GFR(CKD) 83 (>60 ml/min/1.73 sqM); Sodium 141 mmol/L (137-145); Total Bilirubin 0.5 mg/dL (0.2-1.3)
[2021-01-23] MEDS: ARIPiprazole 5 MG TAB PO SCH (12:32)
--- NOTE | 2021-01-23 12:57 | P.HP ---
Psychiatric H&P - . H&P Date: 01/23/21 History & Physical: Allergies Allergy/AdvReac Type Severity Reaction Status Date / Time molindone From Moban Allergy Rash/Hives Verified 01/22/21 17:05 chlorpromazine AdvReac Hallucinati Verified 01/22/21 17:05 From Thorazine ons Vital Signs Temp 97.5 F L 01/23/21 06:34 Pulse 84 01/23/21 06:34 Resp 16 01/23/21 06:34 BP 127/70 01/23/21 06:34 Pulse Ox 98 01/23/21 01:18 Intake & Output 01/22/21 01/23/21 01/23/21 18:59 06:59 18:59 Weight 73.936 kg Laboratory Last Values WBC 10.4 k/uL (3.8-10.6) 01/23/21 09:32 RBC 4.30 m/uL (4.30-5.90) 01/23/21 09:32 Hgb 13.7 gm/dL (13.0-17.5) 01/23/21 09:32 Hct 41.5 % (39.0-53.0) 01/23/21 09:32 MCV 96.6 fL (80.0-100.0) 01/23/21 09:32 MCH 32.0 pg (25.0-35.0) 01/23/21 09:32 MCHC 33.1 g/dL (31.0-37.0) 01/23/21 09:32 RDW 13.8 % (11.5-15.5) 01/23/21 09:32 Plt Count 183 k/uL (150-450) 01/23/21 09:32 MPV 8.0 01/23/21 09:32 Neutrophils % 79 % 01/23/21 09:32 Lymphocytes % 16 % 01/23/21 09:32 Monocytes % 3 % 01/23/21 09:32 Eosinophils % 2 % 01/23/21 09:32 Basophils % 0 % 01/23/21 09:32 Neutrophils # 8.2 k/uL (1.3-7.7) H 01/23/21 09:32 Lymphocytes # 1.7 k/uL (1.0-4.8) 01/23/21 09:32 Monocytes # 0.3 k/uL (0-1.0) 01/23/21 09:32 Eosinophils # 0.2 k/uL (0-0.7) 01/23/21 09:32 Basophils # 0.0 k/uL (0-0.2) 01/23/21 09:32 Sodium 141 mmol/L (137-145) 01/23/21 09:32 Potassium 4.0 mmol/L (3.5-5.1) 01/23/21 09:32 Chloride 110 mmol/L (98-107) H 01/23/21 09:32 Carbon Dioxide 22 mmol/L (22-30) 01/23/21 09:32 Anion Gap 9 mmol/L 01/23/21 09:32 BUN 11 mg/dL (9-20) 01/23/21 09:32 Creatinine 0.94 mg/dL (0.66-1.25) 01/23/21 09:32 Est GFR (CKD-EPI)AfAm >90 (>60 ml/min/1.73 sqM) 01/23/21 09:32 Est GFR (CKD-EPI)NonAf 83 (>60 ml/min/1.73 sqM) 01/23/21 09:32 Glucose 167 mg/dL (74-99) H 01/23/21 09:32 Calcium 9.9 mg/dL (8.4-10.2) 01/23/21 09:32 Total Bilirubin 0.5 mg/dL (0.2-1.3) 01/23/21 09:32 AST 27 U/L (17-59) 01/23/21 09:32 ALT 20 U/L (4-49) 01/23/21 09:32 Alkaline Phosphatase 67 U/L (38-126) 01/23/21 09:32 Total Protein 7.0 g/dL (6.3-8.2) 01/23/21 09:32 Albumin 4.0 g/dL (3.5-5.0) 01/23/21 09:32 TSH 0.757 mIU/L (0.465-4.680) 01/23/21 09:32 Urine Opiates Screen Not Detected (NotDetected) 01/22/21 18:43 Ur Oxycodone Screen Not Detected (NotDetected) 01/22/21 18:43 Urine Methadone Screen Not Detected (NotDetected) 01/22/21 18:43 Ur Propoxyphene Screen Not Detected (NotDetected) 01/22/21 18:43 Ur Barbiturates Screen Not Detected (NotDetected) 01/22/21 18:43 Valproic Acid <10.0 ug/mL 01/22/21 18:43 U Tricyclic Antidepress Not Detected (NotDetected) 01/22/21 18:43 Ur Phencyclidine Scrn Not Detected (NotDetected) 01/22/21 18:43 Ur Amphetamines Screen Not Detected (NotDetected) 01/22/21 18:43 U Methamphetamines Scrn Not Detected (NotDetected) 01/22/21 18:43 U Benzodiazepines Scrn Not Detected (NotDetected) 01/22/21 18:43 Armour <0.2 mmol/L 01/22/21 18:43 Urine Cocaine Screen Not Detected (NotDetected) 01/22/21 18:43 U Marijuana (THC) Screen Not Detected (NotDetected) 01/22/21 18:43 Coronavirus (PCR) Not Detected (Not Detectd) 01/22/21 21:07 01/23/21 12:50 IDENTIFYING DATA: Patient is a 70-year-old -[place] male who currently lives with his daughter and has 2 kids and is unemployed. HPI: Patient presented to the hospital on a pickup order with a police escort. Patient is currently on active mental treatment order until February 2021. Patient apparently has been stopped taking his medications as reported by [facility]. Patient follows up with Dr. Cullen as a psychiatrist. Patient reportedly told the ER that his Depakote and Risperdal. Patient lithium and Depakote levels were subtherapeutic. Patient's UDS was negative. Patient was seen in the hallways and agreeable to speak to news writer. He claims that he follows up with Dr. Cullen at [facility] and told her that she was having problems with Risperdal and Depakote. He listed off several vague side effects that he was getting from these medications including "my head crackling and pounding" and also vaguely spoke about restless leg symptoms. He claims that he started talking about the Bible and then states that she did not agree with him and that she called the court to have him picked up and brought to the hospital. He claims that "she took me off at first". She states that he has been off his medications for 1 w [place] now. He claims that he's been having poor sleep approximately 1-2 hours a night. He states that his mood is "fine" however he has an incongruent affect and was irritable and loud at times during the interview and appeared to be impulsive. He appears to have fairly poor insight. Patient denies any suicidal or homicidal ideations intent or plan. At this time patient denies any auditory or visual hallucinations. Patient denies any flight of ideas racing thoughts and increased in goal directed behavior. Patient admits to using cigarettes only and no other recreational drugs. PAST PSYCHIATRIC HISTORY: Patient states that he has a history of schizoaffective disorder. Patient was previously on Depakote and Risperdal. Patient has been psychiatrically hospitalized several times in the past most recently in March 2020. Patient currently follows up at [facility] with Dr. Cullen is a psychiatrist. Patient denies any history of suicide attempts in the past. PMH: Hypertension ALLERGIES: as per EMR CHEMICAL DEPENDENCY HISTORY: as per HPI FAMILY PSYCHIATRIC/SUBSTANCE USE HISTORY: denies SOCIAL HISTORY: Patient was born and raised in [place]. He states that he moved around a lot between [place] and [place]. He states that he completed high school and did some college. He claims that he was in skilled nursing in the past approximately 15 years ago for felonious assault. He has 2 kids and currently lives with his daughter in a house and is currently unemployed. MENTAL STATUS EXAM: General Appearance: Patient appears to be tall, thin, stated age is alert, directable, and yet is irritable at times. Patient appears to have fair hygiene and grooming. Behavior: Patient is seated without any agitated behavior. Irritable and impulsive Speech: Patient's speech is fluent and nonpressured. Loud at times Mood/Affect: Patient reports their mood is "okay", affect is incongruent and constricted. Suicidality/Homicidality: Patient denies having any homicidal ideation intent or plan. Denies any suicidal ideations intent or plan Perceptions: Patient denies any visual hallucinations and denies any auditory hallucinations Though content/process: Patient rambles at times, tangential/circumstantial. Poor insight. Memory and concentration: AOX3, grossly intact for the purposes of this session. Can spell "WORLD" backwards Judgment and insight: poor STRENGTHS/WEAKNESSES: strength is that patient is resilient]. Weakness is that patient [has poor judgment and is impulsive] INTELLECT: [average] IMPRESSIONS: Schizoaffective disorder, bipolar type Nicotine dependence Noncompliance with medication regimen PLAN: -Patient is admitted under involuntary status to MHU for stabilization of psychiatric symptoms and safety. Patient has [not] signed [adult voluntary form and] [medication consent] and is placed in patient's chart. Patient is currently on an active court order until 03/07/2021. -Medications : Will start patient on Abilify 5 mg daily for mood stabilization/psychosis. We'll also start patient on Seroquel 50 mg daily at bedtime for mood stabilization/insomnia. -Ativan and haldol PRN for agitation/aggression -Patient was informed of the risks, benefits and side effects of the medication and patient refused to sign medication consent form. -Internal Medicine consult to perform medical evaluation and physical. -NRT - [nicotine patch] -SW on board for discharge planning. Encourage patient to participate in groups to work on coping skills. []
--- NOTE | 2021-01-23 15:40 | P.MDCNMH ---
History of Present Illness H&P Date: 01/23/21 Chief Complaint: Escorted by police to the mental health unit Mr. Boo is a 70-year-old male with a past medical history of hypertension, schizoaffective disorder, smoker escorted by police to the hospital for change in his behavior. Patient has history of schizoaffective disorder, supposed to be on Depakote and Risperdal but stopped taking this medications due to "side effects of the medications ". Patient is currently seen in the the psychiatric unit. Patient has past medical history of hypertension and takes 3 blood pressure medications but not sure which ones. He denies having any other significant medical problems. Patient denies having any chest pain or palpitations. No cough or difficulty breathing. Normal pain nausea vomiting or diarrhea. He he denies having any headaches, blurring of vision of weakness of his extremities. No dysuria or hematuria. Reviewing his vitals temperature 98.2, heart rate 90, respiratory rate 18, blood pressure 1 47 x 70 saturating at 100% on room air. Patient also had labs drawn showing white count of 10.4 hemoglobin 13.7, platelets 183. Sodium 141, potassium 4, chloride 110, bicarbonate 22, BNP 11, creatinine 0.94. Urine drug screen was obtained and is negative for illicit substances. Coronavirus PCR negative. Review of Systems REVIEW OF SYSTEMS: CONSTITUTIONAL: No fever, chills or rigors HEENT: No recent visual problems or hearing problems. Denied any sore throat. CARDIOVASCULAR: No chest pain, orthopnea, PND, no palpitations, no syncope. PULMONARY: No shortness of breath, no cough, no hemoptysis. GASTROINTESTINAL: No Abdominal pain nausea vomiting or diarrhea. NEUROLOGICAL: No headaches, no weakness, no numbness. HEMATOLOGICAL: Denies any bleeding or petechiae. GENITOURINARY: Denies any burning micturition, frequency, or urgency. MUSCULOSKELETAL/RHEUMATOLOGICAL: Denies any joint pain, swelling, or any muscle pain. ENDOCRINE: Denies any polyuria or polydipsia. The rest of the 14-point review of systems is negative. Past Medical History Past Medical History: Hypertension History of Any Multi-Drug Resistant Organisms: None Reported Past Surgical History: Heart Catheterization Past Psychological History: Anxiety, Schizophrenia Smoking Status: Current every day smoker Past Alcohol Use History: None Reported Past Drug Use History: None Reported - Past Family History Family Family Medical History: Unable to Obtain Medications and Allergies Home Medications Medication Instructions Recorded Confirmed Type Rafael Pena Carbonate 300 mg PO DAILY 30 Days cap 05/09/20 Rx Rafael Pena Carbonate 600 mg PO HS 30 Days cap 05/09/20 Rx Loratadine [Claritin] 10 mg PO DAILY 30 Days tab 05/09/20 Rx Losartan [Cozaar] 50 mg PO DAILY 30 Days tab 05/09/20 Rx Metoprolol Tartrate [Lopressor] 25 mg PO DAILY 30 Days tab 05/09/20 Rx Nicotine 14Mg/24Hr Patch [Habitrol] 1 patch TRANSDERM DAILY 30 Days 05/09/20 Rx patch Paliperidone Palmitate [Invega 117 mg IM QMONTHLY #1 syr 05/09/20 Rx Sustenna] amLODIPine [Norvasc] 10 mg PO DAILY 30 Days tab 05/09/20 Rx Allergies Allergy/AdvReac Type Severity Reaction Status Date / Time molindone [From Moban] Allergy Rash/Hives Verified 01/22/21 17:05 chlorpromazine AdvReac Hallucinati Verified 01/22/21 17:05 [From Thorazine] ons Physical Exam Vitals: Vital Signs Temp Pulse Pulse Resp BP BP Pulse Ox 01/23/21 06:34 97.5 F L 84 16 127/70 01/23/21 01:18 96.3 F L 67 17 141/62 98 01/22/21 17:02 98.2 F 98 18 147/70 100 Intake and Output 01/22/21 01/23/21 01/23/21 22:59 06:59 14:59 Other: Weight 73.936 kg PHYSICAL EXAMINATION: GENERAL: The patient is alert and oriented x3, not in any acute distress. Well developed, well nourished. HEENT: Pupils are round and equally reacting to light. EOMI. No scleral icterus. No conjunctival pallor. Normocephalic, atraumatic. No pharyngeal erythema. No thyromegaly. CARDIOVASCULAR: S1 and S2 present. No murmurs, rubs, or gallops. PULMONARY: Chest is clear to auscultation, no wheezing or crackles. ABDOMEN: Soft, nontender, nondistended, normoactive bowel sounds. No palpable organomegaly. MUSCULOSKELETAL: No joint swelling or deformity. EXTREMITIES: No cyanosis, clubbing, or pedal edema. NEUROLOGICAL: Gross neurological examination did not reveal any focal deficits. SKIN: No rashes. Cranial Nerve Examination - Cranial Nerves Cranial Nerve II- Optic: Intact Cranial Nerve III- Oculomotor: Intact Cranial Nerve IV- Trochlear: Intact Cranial Nerve V- Trigeminal: Intact Cranial Nerve - Abducens: Intact Cranial Nerve VII- Facial: Intact Cranial Nerve VIII- Auditory: Intact Cranial Nerve IX- Glossopharyngeal: Intact Cranial Nerve X- Vagus: Intact Cranial Nerve XI- Accessory: Intact Cranial Nerve XII- Hypoglossal: Intact Results CBC & Chem 7: 01/23/21 09:32 01/23/21 09:32 Labs: Abnormal Lab Results - Last 24 Hours (Table) 01/23/21 01/23/21 Range/Units 09:32 09:32 Neutrophils # 8.2 H (1.3-7.7) k/uL Chloride 110 H (98-107) mmol/L Glucose 167 H (74-99) mg/dL Assessment and Plan Assessment: ASSESSMENT Schizoaffective disorder, bipolar type Hypertension Nicotine dependence Noncompliance with medications PLAN: Patient will be restarted on home blood pressure medications. The rest of the psychiatric medications to be adjusted by the primary team. Thank you for the consultation.
[2021-01-23] MEDS: QUEtiapine 50 MG TAB PO SCH (20:39)
[2021-01-24] MEDS: ARIPiprazole 5 MG TAB PO SCH (08:32)
[2021-01-24] MEDS: METOPROLOL TARTRATE 25 MG TAB PO SCH (08:33)
[2021-01-24] MEDS: amLODIPine 10 MG TAB PO SCH (08:33)
[2021-01-24] MEDS: LOSARTAN 50 MG TAB PO SCH (08:33)
--- NOTE | 2021-01-24 09:48 | P.PN ---
Progress Note - Text Progress Note Date: 01/24/21 Interval History: Patient was seen laying in his bed this morning and was directable and agreeable to speak with specification writer in the office. Patient appeared to be mildly irritable with specification writer and dismissive. He claimed that the Abilify was making "my head split". He continues to have fairly poor insight into his need for medications and treatment. He states that "I've been taking meds for 45 years and they're not helping me". He claims his mood is "fine" however does have significant mood lability and was irritable. He claims that he slept fairly last night with the Seroquel. He admits to fair appetite and has been going to some groups. At this time patient denies any suicidal or homical ideations, intent or plan. Patient denies any auditory, visual hallucinations. Patient denies any side effects from the medications and has been compliant with meds. Mental Status Exam: General Appearance: Patient appears to be tall, thin, stated age is alert, dismissive and irritable at times. Patient appears to have fair hygiene and grooming. Behavior: Patient is seated without any agitated behavior. Irritable and impulsive Speech: Patient's speech is fluent and nonpressured. Loud at times Mood/Affect: Patient reports their mood is "ok", affect is incongruent Suicidality/Homicidality: Patient denies having any homicidal ideation intent or plan. Denies any suicidal ideations intent or plan Perceptions: Patient denies any visual hallucinations and denies any auditory hallucinations Though content/process: Patient rambles at times, tangential/circumstantial. Poor insight. Memory and concentration: AOX3, grossly intact for the purposes of this session. Judgment and insight: Chronically poor Assessment Schizoaffective disorder, bipolar type Nicotine dependence Noncompliance with medication regimen Plan: -Patient continues to meet criteria for inpatient psychiatric admission for symptom stabilization and safety. Patient has not signed adult voluntary form and medication consent and was placed in patient's chart. Patient is currently on an active court order until 03/07/2021. -Medications: We'll discontinue Abilify and replace with Lamictal 25 mg twice a day for mood stabilization/depression. Continue Seroquel 50 mg daily at bedtime for mood stabilization/insomnia. -When necessary Ativan and Haldol for agitation/aggression. -NRT - nicotine patch -SW on board for discharge planning. Encouraged the patient to participate in milieu.
[2021-01-24] MEDS: lamoTRIgine 25 MG TAB PO SCH ×2 (10:19→22:25)
[2021-01-24] MEDS: QUEtiapine 50 MG TAB PO SCH (22:25)
[2021-01-25] MEDS: lamoTRIgine 25 MG TAB PO SCH ×2 (08:26→21:09)
[2021-01-25] MEDS: METOPROLOL TARTRATE 25 MG TAB PO SCH (08:26)
[2021-01-25] MEDS: LOSARTAN 50 MG TAB PO SCH (08:26)
[2021-01-25] MEDS: amLODIPine 10 MG TAB PO SCH (08:26)
--- NOTE | 2021-01-25 09:13 | P.PN ---
Progress Note - Text Progress Note Date: 01/25/21 Interval History: Patient was seen wandering the hallways this morning and was directable and ag reeable to speak with data analyst report writer in the office. Patient appeared to be more cooperative and less argumentative with the data analyst report writer today. He appeared to have an improvement in his affect today and states that he is having less side effects. He was very happy to report that "my head isn't splitting anymore with his medication". He appears to be speaking more positively about his medications and claims that it is helping him. He states that his mood has been improving and denies any anxiety today. States that he was able to sleep better last night. He claims that he slept fairly last night with the Seroquel approximately 6-7 hours. He admits to fair appetite and has been going to some groups. At this time patient denies any suicidal or homical ideations, intent or plan. Patient denies any auditory, visual hallucinations. Patient denies any side effects from the medications and has been compliant with meds. Mental Status Exam: General Appearance: Patient appears to be tall, thin, stated age is alert, less irritable today and more cooperative. Patient appears to have fair hygiene and grooming. Behavior: Patient is seated without any agitated behavior. Less irritable today Speech: Patient's speech is fluent and nonpressured. Loud at times Mood/Affect: Patient reports their mood is "better", affect is congruent Suicidality/Homicidality: Patient denies having any homicidal ideation intent or plan. Denies any suicidal ideations intent or plan Perceptions: Patient denies any visual hallucinations and denies any auditory hallucinations Though content/process: Patient rambles at times, tangential/circumstantial, mildly. Insight is improving. Memory and concentration: AOX3, grossly intact for the purposes of this session. Judgment and insight: Chronically poor, improving mildly Assessment Schizoaffective disorder, bipolar type Nicotine dependence Noncompliance with medication regimen Plan: -Patient continues to meet criteria for inpatient psychiatric admission for symptom stabilization and safety. Patient has not signed adult voluntary form and medication consent and was placed in patient's chart. Patient is currently on an active court order until 03/07/2021. -Medications: Increased Lamictal 50 mg twice a day for mood stabilization/depression. Culvert Installer spoke with patient about the side effects of a possible rash and to continue monitoring his skin, patient verbally understood and agreed. Continue Seroquel 50 mg daily at bedtime for mood stabilization/insomnia. -When necessary Ativan and Haldol for agitation/aggression. -NRT - nicotine patch -SW on board for discharge planning. Encouraged the patient to participate in milieu. Likely discharge tomorrow.
[2021-01-25] MEDS: QUEtiapine 50 MG TAB PO SCH (21:09)
[2021-01-26 05:05] VITALS: BP 142/70; PULSE 70; TEMP 97.8
[2021-01-26] MEDS: METOPROLOL TARTRATE 25 MG TAB PO SCH (08:28)
[2021-01-26] MEDS: lamoTRIgine 25 MG TAB PO SCH (08:28)
[2021-01-26] MEDS: amLODIPine 10 MG TAB PO SCH (08:28)
[2021-01-26] MEDS: LOSARTAN 50 MG TAB PO SCH (08:28)
--- NOTE | 2021-01-26 09:33 | P.DS ---
Providers Date of admission: 01/23/21 00:12 Expected date of discharge: 01/26/21 Attending physician: Catalino Ballesteros MD Consults: 01/23/21 00:33 Consult Physician Routine Consulting Provider: Livier Tran Consult Reason/Comments: H&P Do you want consulting provider notified?: Yes, Notify in am Primary care physician: Carol Stevens - Discharge Diagnosis(es) (1) Schizoaffective disorder, bipolar type Current Visit: Yes Status: Acute Priority: High (2) Nicotine dependence Current Visit: Yes Status: Acute Priority: Low Hospital Course: Admission HPI: Admission note was completed by health underwriter "Patient is a 70-year-old - [place] male who currently lives with his daughter and has 2 kids and is unemployed. Patient presented to the hospital on a pickup order with a police escort. Patient is currently on active mental treatment order until February 2021. Patient apparently has been stopped taking his medications as reported by [facility]. Patient follows up with Dr. Cullen as a psychiatrist. Patient reportedly told the ER that his Depakote and Risperdal. Patient lithium and Depakote levels were subtherapeutic. Patient's UDS was negative. Patient was seen in the hallways and agreeable to speak to health underwriter. He claims that he follows up with Dr. Cullen at [facility] and told her that she was having problems with Risperdal and Depakote. He listed off several vague side effects that he was getting from these medications including "my head crackling and pounding" and also vaguely spoke about restless leg symptoms. He claims that he started talking about the Bible and then states that she did not agree with him and that she called the court to have him picked up and brought to the hospital. He claims that "she took me off at first". She states that he has been off his medications for 1 week now. He claims that he's been having poor sleep approximately 1-2 hours a night. He states that his mood is "fine" however he has an incongruent affect and was irritable and loud at times during the interview and appeared to be impulsive. He appears to have fairly poor insight. Patient denies any suicidal or homicidal ideations intent or plan. At this time patient denies any auditory or visual hallucinations. Patient denies any flight of ideas racing thoughts and increased in goal directed behavior. Patient admits to using cigarettes only and no other recreational drugs." Hospital course: Upon admission to the unit patient was initially agitated and irritable. Patient was however admitted on an active mental health treatment order. Patient got along well with other patients on the unit and followed unit protocol. Patient was compliant with the medications throughout hospital course. Patient was started on Abilify however patient began complaining of vague side effects and headaches and this medication was discontinued. He was then started on Seroquel 50 mg daily at bedtime for mood stabilization/psychosis/insomnia. Patient was also started on Lamictal and titrate up the dose of 100 mg daily for mood stabilization. Patient spoke of his stressors and engaged in therapy both group and individual. Patient was also seen by medical team for history and physical exam. Throughout the course of the hospitalization patient gradually improved with regards to mood, anxiety, agitation/psychosis, sleep and returned back to his baseline level of functioning.. On the day of discharge patient denied any suicidal or homicidal ideations intent or plan denied any auditory or visual hallucinations. Patient endorsed wanting to live for his future and family. The patient denied any access to guns or weapons. Patient denied any paranoia and did not endorse any delusions. Patient does not have a significant history of substance abuse however was counseled on abstaining from all substances including alcohol and marijuana. Patient was also counseled on the medications and need for regular compliance and was encouraged to follow-up with their outpatient appointment for mental health and also for primary care. Prior to discharge a family meeting will be arranged by manager social media to answer any questions and ensure safety upon discharge. Patient will be followed up closely with [facility] to ensure that she is taking his medications regularly at home. Mental status exam: General Appearance: Patient appears to be a tall, stated age is alert, pleasant, and cooperative. Patient is in no acute distress and has improved hygiene and grooming Behavior: Patient is calmly seated without any agitated behavior. Speech: Patient's speech is fluent and nonpressured. Mood/Affect: Patient reports their mood is "better", affect is congruent and euthymic. Suicidality/Homicidality: Patient denies having any suicidal or homicidal ideation intent or plan. Perceptions: Patient denies any auditory or visual hallucinations. Though content/process: There is no evidence of any delusional thought content and thought process is linear and goal-directed. Memory and concentration: AOX3, grossly intact for the purposes of this session. Can spell "WORLD" backwards correctly. Judgment and insight: chronically poor, however has improved with guarded prognosis Impression: Schizoaffective disorder, bipolar type Nicotine dependence Plan: -Continue with discharge today as patient has improved and stabilized psychiatrically and is not currently an imminent threat to himself and/or others. Patient will remain at chronically elevated risk for harm to self and/or others due to his chronically poor insight and judgment. -Continue medications: Lamictal 100 mg daily for mood stabilization, Seroquel 50 mg daily at bedtime for psychosis/insomnia/mood stabilization. I added melatonin 5 mg daily at bedtime for insomnia. -Patient was counseled on the need for medication compliance and appropriate follow-up at mental health and also primary care for medical issues. Patient verbalized understanding and agreed. -Social work to arrange for and conduct family meeting to ensure safety upon discharge and answer any questions/concerns. Social work also to arrange for patients follow up appointments with [facility] for psychiatric care along with follow up with primary care provider. -Patient counseled on abstaining from recreational drugs and marijuana and alcohol. Was informed/educated on the adverse effects on their physical and mental health. Patient verbally agreed and understood. -Patient was instructed to return to the hospital or seek immediate medical care if their psychiatric or medical symptoms do worsen or reoccur. Allergies Allergy/AdvReac Type Severity Reaction Status Date / Time molindone [From Moban] Allergy Rash/Hives Verified 01/22/21 17:05 chlorpromazine AdvReac Hallucinati Verified 01/22/21 17:05 [From Thorazine] ons Laboratory Results WBC 10.4 k/uL (3.8-10.6) 01/23/21 09:32 RBC 4.30 m/uL (4.30-5.90) 01/23/21 09:32 Hgb 13.7 gm/dL (13.0-17.5) 01/23/21 09:32 Hct 41.5 % (39.0-53.0) 01/23/21 09:32 MCV 96.6 fL (80.0-100.0) 01/23/21 09:32 MCH 32.0 pg (25.0-35.0) 01/23/21 09:32 MCHC 33.1 g/dL (31.0-37.0) 01/23/21 09:32 RDW 13.8 % (11.5-15.5) 01/23/21 09:32 Plt Count 183 k/uL (150-450) 01/23/21 09:32 MPV 8.0 01/23/21 09:32 Neutrophils % 79 % 01/23/21 09:32 Lymphocytes % 16 % 01/23/21 09:32 Monocytes % 3 % 01/23/21 09:32 Eosinophils % 2 % 01/23/21 09:32 Basophils % 0 % 01/23/21 09:32 Neutrophils # 8.2 k/uL (1.3-7.7) H 01/23/21 09:32 Lymphocytes # 1.7 k/uL (1.0-4.8) 01/23/21 09:32 Monocytes # 0.3 k/uL (0-1.0) 01/23/21 09:32 Eosinophils # 0.2 k/uL (0-0.7) 01/23/21 09:32 Basophils # 0.0 k/uL (0-0.2) 01/23/21 09:32 Sodium 141 mmol/L (137-145) 01/23/21 09:32 Potassium 4.0 mmol/L (3.5-5.1) 01/23/21 09:32 Chloride 110 mmol/L (98-107) H 01/23/21 09:32 Carbon Dioxide 22 mmol/L (22-30) 01/23/21 09:32 Anion Gap 9 mmol/L 01/23/21 09:32 BUN 11 mg/dL (9-20) 01/23/21 09:32 Creatinine 0.94 mg/dL (0.66-1.25) 01/23/21 09:32 Est GFR (CKD-EPI)AfAm >90 (>60 ml/min/1.73 sqM) 01/23/21 09:32 Est GFR (CKD-EPI)NonAf 83 (>60 ml/min/1.73 sqM) 01/23/21 09:32 Glucose 167 mg/dL (74-99) H 01/23/21 09:[address] Glu mg/dL 111 01/23/21 09:32 Hemoglobin A1c 5.5 % (4.0-6.0) 01/23/21 09:32 Calcium 9.9 mg/dL (8.4-10.2) 01/23/21 09:32 Total Bilirubin 0.5 mg/dL (0.2-1.3) 01/23/21 09:32 AST 27 U/L (17-59) 01/23/21 09:32 ALT 20 U/L (4-49) 01/23/21 09:32 Alkaline Phosphatase 67 U/L (38-126) 01/23/21 09:32 Total Protein 7.0 g/dL (6.3-8.2) 01/23/21 09:32 Albumin 4.0 g/dL (3.5-5.0) 01/23/21 09:32 TSH 0.757 mIU/L (0.465-4.680) 01/23/21 09:32 Urine Opiates Screen Not Detected (NotDetected) 01/22/21 18:43 Ur Oxycodone Screen Not Detected (NotDetected) 01/22/21 18:43 Urine Methadone Screen Not Detected (NotDetected) 01/22/21 18:43 Ur Propoxyphene Screen Not Detected (NotDetected) 01/22/21 18:43 Ur Barbiturates Screen Not Detected (NotDetected) 01/22/21 18:43 Valproic Acid <10.0 ug/mL 01/22/21 18:43 U Tricyclic Antidepress Not Detected (NotDetected) 01/22/21 18:43 Ur Phencyclidine Scrn Not Detected (NotDetected) 01/22/21 18:43 Ur Amphetamines Screen Not Detected (NotDetected) 01/22/21 18:43 U Methamphetamines Scrn Not Detected (NotDetected) 01/22/21 18:43 U Benzodiazepines Scrn Not Detected (NotDetected) 01/22/21 18:43 Rew <0.2 mmol/L 01/22/21 18:43 Urine Cocaine Screen Not Detected (NotDetected) 01/22/21 18:43 U Marijuana (THC) Screen Not Detected (NotDetected) 01/22/21 18:43 Coronavirus (PCR) Not Detected (Not Detectd) 01/22/21 21:07 Vital Signs Temp 97.8 F 01/26/21 05:04 Pulse 70 01/26/21 05:04 Resp 16 01/26/21 05:04 BP 142/70 01/26/21 05:04 Pulse Ox 98 01/23/21 01:18 Patient Condition at Discharge: Stable Plan - Discharge Summary New Discharge Prescriptions: New Losartan [Cozaar] 50 mg PO DAILY 30 Days tab lamoTRIgine [LaMICtal] 100 mg PO DAILY 30 Days tab QUEtiapine [SEROquel] 50 mg PO HS 30 Days tab Metoprolol Tartrate [Lopressor] 25 mg PO DAILY 30 Days tab Melatonin 5 mg PO HS 30 Days tablet amLODIPine [Norvasc] 10 mg PO DAILY 30 Days tab Acetaminophen Tab [Tylenol] 650 mg PO Q4HR PRN tab PRN Reason: Pain/Discomfort Continue Loratadine [Claritin] 10 mg PO DAILY 30 Days tab Nicotine 14Mg/24Hr Patch [Habitrol] 1 patch TRANSDERM DAILY 14 Days patch Discontinued Rew Carbonate 600 mg PO HS 30 Days cap Rew Carbonate 300 mg PO DAILY 30 Days cap Losartan [Cozaar] 50 mg PO DAILY 30 Days tab Metoprolol Tartrate [Lopressor] 25 mg PO DAILY 30 Days tab amLODIPine [Norvasc] 10 mg PO DAILY 30 Days tab Paliperidone Palmitate [Invega Sustenna] 117 mg IM QMONTHLY #1 syr Discharge Medication List Loratadine [Claritin] 10 mg PO DAILY 30 Days tab 05/09/20 [Rx] Acetaminophen Tab [Tylenol] 650 mg PO Q4HR PRN tab 01/26/21 [Rx] Losartan [Cozaar] 50 mg PO DAILY 30 Days tab 01/26/21 [Rx] Melatonin 5 mg PO HS 30 Days tablet 01/26/21 [Rx] Metoprolol Tartrate [Lopressor] 25 mg PO DAILY 30 Days tab 01/26/21 [Rx] Nicotine 14Mg/24Hr Patch [Habitrol] 1 patch TRANSDERM DAILY 14 Days patch 01/26/21 [Rx] QUEtiapine [SEROquel] 50 mg PO HS 30 Days tab 01/26/21 [Rx] amLODIPine [Norvasc] 10 mg PO DAILY 30 Days tab 01/26/21 [Rx] lamoTRIgine [LaMICtal] 100 mg PO DAILY 30 Days tab 01/26/21 [Rx] Follow up Appointment(s)/Referral(s): [facility] [Outside] - 01/30/21 12:30 pm (01-30-21 @ 12:30 with Leonard Chaidez 01-30-21 @ 1:[address] Cullen) Carol Stevens MD [Primary Care Provider] - 1-2 days Activity/Diet/Wound Care/Special Instructions: Activity and diet as tolerated. Avoid the use of street drugs and alcohol. Take all medications as prescribed. When you are in need of refills on your medications please contact your medical provider and/or outpatient psychiatrist to have this done. Please go to scheduled outpatient appointment for aftercare treatment. If symptoms return or become worse, call the crisis line at and/or go to the nearest emergency room for evaluation. Discharge Disposition: HOME SELF-CARE
== END 2021-01-26 13:18 | disposition home or self-care (01) | DRG 885 ==
LOC: EC 16:59 → 3MHU 01-23 00:12
PROVIDERS: ADMIT Psychiatry & Neurology Psychiatry; ATTEND Psychiatry & Neurology Psychiatry
DX: F25.0 Schizoaffective disorder, bipolar type (principal); Z91.128 Patient's intentional underdosing of medication regimen for other reason; F17.210 Nicotine dependence, cigarettes, uncomplicated; Z20.822 Contact with and (suspected) exposure to COVID-19; I10 Essential (primary) hypertension; G25.81 Restless legs syndrome; G47.00 Insomnia, unspecified; R51.9 Headache, unspecified; T42.6X6A Underdosing of other antiepileptic and sedative-hypnotic drugs, initial encounter; T43.596A Underdosing of other antipsychotics and neuroleptics, initial encounter; Z79.899 Other long term (current) drug therapy; Z56.0 Unemployment, unspecified; Z88.8 Allergy status to other drugs, medicaments and biological substances
CPT/HCPCS: 36415; 80053; 80164; 80178; 80306; 82075; 83036; 84443; 85025; 87635; 99285

== ENCOUNTER 2021-02-11 09:00 | Inpatient (IN) | payer MEDICARE, OTHER ==
--- NOTE | 2021-02-11 09:21 | ED ---
Psych HPI - General Chief Complaint: Psychiatric Symptoms Stated Complaint: Mental health Time Seen by Provider: 02/11/21 09:00 Source: patient, EMS, RN notes reviewed Mode of arrival: EMS - History of Present Illness Initial Comments: 62-year-old male brought in for evaluation for psychiatric consideration patient apparently is been voicing concern is some DJD in from the inside is not been taking his medications he appears to have a history of schizophrenia and believes his family all ate some. No trauma reported no fevers chills nausea vomiting sweats reported is demonstrating flight of ideas MD Complaint: other - Related Data Previous Rx's Medication Instructions Recorded Loratadine [Claritin] 10 mg PO DAILY 30 Days tab 05/09/20 Acetaminophen Tab [Tylenol] 650 mg PO Q4HR PRN tab 01/26/21 Losartan [Cozaar] 50 mg PO DAILY 30 Days tab 01/26/21 Melatonin 5 mg PO HS 30 Days tablet 01/26/21 Metoprolol Tartrate [Lopressor] 25 mg PO DAILY 30 Days tab 01/26/21 Nicotine 14Mg/24Hr Patch [Habitrol] 1 patch TRANSDERM DAILY 14 Days 01/26/21 patch QUEtiapine [SEROquel] 50 mg PO HS 30 Days tab 01/26/21 amLODIPine [Norvasc] 10 mg PO DAILY 30 Days tab 01/26/21 lamoTRIgine [LaMICtal] 100 mg PO DAILY 30 Days tab 01/26/21 Allergies Allergy/AdvReac Type Severity Reaction Status Date / Time molindone [From Moban] Allergy Rash/Hives Verified 02/11/21 12:01 chlorpromazine AdvReac Hallucinati Verified 02/11/21 12:01 [From Thorazine] ons Review of Systems ROS Statement: Those systems with pertinent positive or pertinent negative responses have been documented in the HPI. ROS Other: All systems not noted in ROS Statement are negative. Past Medical History Past Medical History: Hypertension History of Any Multi-Drug Resistant Organisms: None Reported Past Surgical History: Heart Catheterization Past Psychological History: Anxiety, Schizophrenia Smoking Status: Current every day smoker Past Alcohol Use History: None Reported Past Drug Use History: None Reported - Past Family History Family Family Medical History: Unable to Obtain General Exam - General Exam Comments Initial Comments: Is a well-developed well-nourished awake alert male demonstrating flight of ideas Limitations: no limitations General appearance: alert, anxious Head exam: Present: atraumatic, normocephalic, normal inspection Eye exam: Present: normal appearance, PERRL, EOMI. Absent: scleral icterus, conjunctival injection, periorbital swelling ENT exam: Present: normal exam, mucous membranes moist Neck exam: Present: normal inspection. Absent: tenderness, meningismus, lymphadenopathy Respiratory exam: Present: normal lung sounds bilaterally. Absent: respiratory distress, wheezes, rales, rhonchi, stridor Cardiovascular Exam: Present: regular rate, normal rhythm, normal heart sounds. Absent: systolic murmur, diastolic murmur, rubs, gallop, clicks GI/Abdominal exam: Present: soft, normal bowel sounds. Absent: distended, tenderness, guarding, rebound, rigid Extremities exam: Present: normal inspection, full ROM, normal capillary refill. Absent: tenderness, pedal edema, joint swelling, calf tenderness Back exam: Present: normal inspection Neurological exam: Present: alert, oriented X3, CN II-XII intact Psychiatric exam: Present: agitated, anxious, other (Demonstrates flight of ideas and paranoid thoughts hyper verbal) Skin exam: Present: warm, dry, intact, normal color. Absent: rash Course Vital Signs 02/11/21 09:03 Temperature 98.3 F Pulse Rate 95 Respiratory 20 Rate Blood Pressure 107/74 O2 Sat by Pulse 97 Oximetry Medical Decision Making - Medical Decision Making The patient was evaluated by the psychiatric service and will be admitted for inpatient evaluation and treatment - Lab Data Result diagrams: 02/11/21 09:51 02/11/21 09:51 Lab Results 02/11/21 02/11/21 02/11/21 Range/Units 09:51 09:51 11:38 WBC 13.3 H (3.8-10.6) k/uL RBC 4.62 (4.30-5.90) m/uL Hgb 15.0 (13.0-17.5) gm/dL Hct 44.7 (39.0-53.0) % MCV 96.6 (80.0-100.0) fL MCH 32.4 (25.0-35.0) pg MCHC 33.5 (31.0-37.0) g/dL RDW 13.6 (11.5-15.5) % Plt Count 235 (150-450) k/uL MPV 7.5 Neutrophils % 77 % Lymphocytes % 17 % Monocytes % 3 % Eosinophils % 2 % Basophils % 0 % Neutrophils # 10.3 H (1.3-7.7) k/uL Lymphocytes # 2.2 (1.0-4.8) k/uL Monocytes # 0.4 (0-1.0) k/uL Eosinophils # 0.3 (0-0.7) k/uL Basophils # 0.0 (0-0.2) k/uL Sodium 140 (137-145) mmol/L Potassium 3.7 (3.5-5.1) mmol/L Chloride 111 H (98-107) mmol/L Carbon Dioxide 18 L (22-30) mmol/L Anion Gap 11 mmol/L BUN 12 (9-20) mg/dL Creatinine 1.12 (0.66-1.25) mg/dL Est GFR (CKD-EPI)AfAm 78 (>60 ml/min/1.73 sqM) Est GFR (CKD-EPI)NonAf 67 (>60 ml/min/1.73 sqM) Glucose 115 H (74-99) mg/dL Calcium 9.9 (8.4-10.2) mg/dL Magnesium 1.9 (1.6-2.3) mg/dL Total Bilirubin 0.6 (0.2-1.3) mg/dL AST 24 (17-59) U/L ALT 16 (4-49) U/L Alkaline Phosphatase 87 (38-126) U/L Creatine Kinase 160 (55-170) U/L Total Protein 7.5 (6.3-8.2) g/dL Albumin 4.3 (3.5-5.0) g/dL TSH 0.857 (0.465-4.680) mIU/L Urine Color Urine Appearance (Clear) Urine pH (5.0-8.0) Ur Specific [place] (1.001-1.035) Urine Protein (Negative) Urine Glucose (UA) (Negative) Urine Ketones (Negative) Urine Blood (Negative) Urine Nitrite (Negative) Urine Bilirubin (Negative) Urine Urobilinogen (<2.0) mg/dL Ur Leukocyte Esterase (Negative) Urine Opiates Screen Not Detected (NotDetected) Ur Oxycodone Screen Not Detected (NotDetected) Urine Methadone Screen Not Detected (NotDetected) Ur Propoxyphene Screen Not Detected (NotDetected) Ur Barbiturates Screen Not Detected (NotDetected) U Tricyclic Antidepress Not Detected (NotDetected) Ur Phencyclidine Scrn Not Detected (NotDetected) Ur Amphetamines Screen Not Detected (NotDetected) U Methamphetamines Scrn Not Detected (NotDetected) U Benzodiazepines Scrn Not Detected (NotDetected) Urine Cocaine Screen Not Detected (NotDetected) U Marijuana (THC) Screen Not Detected (NotDetected) Serum Alcohol <10 mg/dL Coronavirus (PCR) (Not Detectd) 02/11/21 02/11/21 Range/Units 11:38 11:38 WBC (3.8-10.6) k/uL RBC (4.30-5.90) m/uL Hgb (13.0-17.5) gm/dL Hct (39.0-53.0) % MCV (80.0-100.0) fL MCH (25.0-35.0) pg MCHC (31.0-37.0) g/dL RDW (11.5-15.5) % Plt Count (150-450) k/uL MPV Neutrophils % % Lymphocytes % % Monocytes % % Eosinophils % % Basophils % % Neutrophils # (1.3-7.7) k/uL Lymphocytes # (1.0-4.8) k/uL Monocytes # (0-1.0) k/uL Eosinophils # (0-0.7) k/uL Basophils # (0-0.2) k/uL Sodium (137-145) mmol/L Potassium (3.5-5.1) mmol/L Chloride (98-107) mmol/L Carbon Dioxide (22-30) mmol/L Anion Gap mmol/L BUN (9-20) mg/dL Creatinine (0.66-1.25) mg/dL Est GFR (CKD-EPI)AfAm (>60 ml/min/1.73 sqM) Est GFR (CKD-EPI)NonAf (>60 ml/min/1.73 sqM) Glucose (74-99) mg/dL Calcium (8.4-10.2) mg/dL Magnesium (1.6-2.3) mg/dL Total Bilirubin (0.2-1.3) mg/dL AST (17-59) U/L ALT (4-49) U/L Alkaline Phosphatase (38-126) U/L Creatine Kinase (55-170) U/L Total Protein (6.3-8.2) g/dL Albumin (3.5-5.0) g/dL TSH (0.465-4.680) mIU/L Urine Color Light Yellow Urine Appearance Clear (Clear) Urine pH 6.0 (5.0-8.0) Ur Specific [place] 1.003 (1.001-1.035) Urine Protein Negative (Negative) Urine Glucose (UA) Negative (Negative) Urine Ketones Negative (Negative) Urine Blood Negative (Negative) Urine Nitrite Negative (Negative) Urine Bilirubin Negative (Negative) Urine Urobilinogen <2.0 (<2.0) mg/dL Ur Leukocyte Esterase Negative (Negative) Urine Opiates Screen (NotDetected) Ur Oxycodone Screen (NotDetected) Urine Methadone Screen (NotDetected) Ur Propoxyphene Screen (NotDetected) Ur Barbiturates Screen (NotDetected) U Tricyclic Antidepress (NotDetected) Ur Phencyclidine Scrn (NotDetected) Ur Amphetamines Screen (NotDetected) U Methamphetamines Scrn (NotDetected) U Benzodiazepines Scrn (NotDetected) Urine Cocaine Screen (NotDetected) U Marijuana (THC) Screen (NotDetected) Serum Alcohol mg/dL Coronavirus (PCR) Not Detected (Not Detectd) Disposition Clinical Impression: Schizoaffective disorder Disposition: TRANSFER TO PSYCH HOSP/UNIT Condition: Fair Referrals: Carol Stevens MD [REFERRING] - 1-2 days
[2021-02-11 09:58] LABS: Basophils % (A) 0 %; Eosinophils # (A) 0.3 k/uL (0-0.7); Eosinophils % (A) 2 %; HCT 44.7 % (39.0-53.0); Lymphocytes # (A) 2.2 k/uL (1.0-4.8); Lymphocytes % (A) 17 %; MCH 32.4 pg (25.0-35.0); MCHC 33.5 g/dL (31.0-37.0); MCV 96.6 fL (80.0-100.0); Mean Platelet Volume 7.5; Monocytes # (A) 0.4 k/uL (0-1.0); Monocytes % (A) 3 %; Neutrophils # (A) 10.3 k/uL (1.3-7.7); Neutrophils % (A) 77 %; Platelet Count 235 k/uL (150-450); RBC 4.62 m/uL (4.30-5.90); RDW 13.6 % (11.5-15.5); WBC 13.3 k/uL (3.8-10.6)
[2021-02-11 10:25] LABS: ALT 16 U/L (4-49); AST 24 U/L (17-59); African American GFR (CKD) 78 (>60 ml/min/1.73 sqM); Albumin 4.3 g/dL (3.5-5.0); Alcohol <10 mg/dL; Alkaline Phosphatase 87 U/L (38-126); Anion Gap 11 mmol/L; Blood Urea Nitrogen 12 mg/dL (9-20); Calcium 9.9 mg/dL (8.4-10.2); Carbon Dioxide 18 mmol/L (22-30); Chloride 111 mmol/L (98-107); Creatine Kinase 160 U/L (55-170); Glucose 115 mg/dL (74-99); Magnesium 1.9 mg/dL (1.6-2.3); Non-African American GFR(CKD) 67 (>60 ml/min/1.73 sqM); Potassium 3.7 mmol/L (3.5-5.1); Sodium 140 mmol/L (137-145); Total Bilirubin 0.6 mg/dL (0.2-1.3); Total Protein 7.5 g/dL (6.3-8.2)
--- NOTE | 2021-02-11 10:25 | XR ---
EXAMINATION TYPE: XR chest 1V portable DATE OF EXAM: 02/11/2021 COMPARISON: 06/16/2019 HISTORY: Confusion TECHNIQUE: Single frontal view of the chest is obtained. FINDINGS: There is no focal air space opacity, pleural effusion, or pneumothorax seen. The cardiac silhouette size is within normal limits. The osseous structures are intact. IMPRESSION: No acute process.
[2021-02-11 11:56] LABS: Appearance,Urine Clear (Clear); Bilirubin,Urine Negative (Negative); Blood,Urine Negative (Negative); Color,Urine Light Yellow; Glucose,Urine (UA) Negative (Negative); Ketones,Urine Negative (Negative); Leukocyte Esterase,Urine Negative (Negative); Nitrite,Urine Negative (Negative); Protein,Urine Negative (Negative); Specific Gravity,Urine 1.003 (1.001-1.035); Urobilinogen,Urine <2.0 mg/dL (<2.0)
[2021-02-11 12:30] LABS: Amphetamine Screen,Urine Not Detected (NotDetected); Barbiturate Screen,Urine Not Detected (NotDetected); Benzodiazepines Screen,Urine Not Detected (NotDetected); Cocaine Screen,Urine Not Detected (NotDetected); Methadone Screen, Urine Not Detected (NotDetected); Opiate Screen,Urine Not Detected (NotDetected); Oxycodone Screen, Urine Not Detected (NotDetected); Phencyclidine Screen,Urine Not Detected (NotDetected); Tricyclic Antidepressant,Urine Not Detected (NotDetected); Urn Cannabinoid Scrn Not Detected (NotDetected)
[2021-02-11] MEDS ORDERED: MAGNESIUM HYDROXIDE 2,400 MG/10 ML CUP PO PRN (14:12)
[2021-02-11] MEDS ORDERED: MAG HYDROX/AL HYDROX/SIMETH 30 ML CUP PO PRN (14:12)
[2021-02-11] MEDS ORDERED: LORazepam 1 MG TAB PO PRN (14:12)
[2021-02-11] MEDS ORDERED: ACETAMINOPHEN TAB 325 MG TAB PO PRN (14:12)
[2021-02-11] MEDS ORDERED: LORazepam 2 MG/ML INJ IM PRN (14:17)
[2021-02-11] MEDS ORDERED: HALOPERIDOL LACTATE 5 MG/ML 1 ML VIAL IM PRN (14:18)
[2021-02-11] MEDS ORDERED: haloperidoL 5 MG TAB PO PRN (14:18)
[2021-02-11] MEDS ORDERED: INFLUENZA VACC HIGH-DOSE (65+) 240 MCG/0.7 ML SYRINGE IM ONE ×2 (16:45→23:59)
[2021-02-11] MEDS ORDERED: PNEUMOCOCCAL VACC-PNEUMOVAX 23 25 MCG/0.5 ML VIAL IM ONE (16:45)
[2021-02-11] MEDS: MELATONIN 5 MG TABLET PO SCH (20:12)
[2021-02-11] MEDS ORDERED: QUEtiapine 50 MG TAB PO SCH (21:00)
[2021-02-12 06:47] LABS: Basophils % (A) 0 %; Eosinophils # (A) 0.2 k/uL (0-0.7); Eosinophils % (A) 2 %; HCT 47.2 % (39.0-53.0); HGB 15.5 gm/dL (13.0-17.5); Lymphocytes # (A) 2.5 k/uL (1.0-4.8); Lymphocytes % (A) 17 %; MCH 32.1 pg (25.0-35.0); MCHC 32.8 g/dL (31.0-37.0); MCV 98.1 fL (80.0-100.0); Mean Platelet Volume 7.7; Monocytes # (A) 0.5 k/uL (0-1.0); Monocytes % (A) 3 %; Neutrophils # (A) 11.4 k/uL (1.3-7.7); Neutrophils % (A) 77 %; Platelet Count 252 k/uL (150-450); RBC 4.81 m/uL (4.30-5.90); RDW 13.4 % (11.5-15.5); WBC 14.8 k/uL (3.8-10.6)
[2021-02-12 07:11] LABS: ALT 16 U/L (4-49); AST 27 U/L (17-59); African American GFR (CKD) >90 (>60 ml/min/1.73 sqM); Albumin 4.3 g/dL (3.5-5.0); Alkaline Phosphatase 88 U/L (38-126); Anion Gap 8 mmol/L; Blood Urea Nitrogen 14 mg/dL (9-20); Calcium 9.9 mg/dL (8.4-10.2); Carbon Dioxide 24 mmol/L (22-30); Chloride 109 mmol/L (98-107); Glucose 96 mg/dL (74-99); Non-African American GFR(CKD) 82 (>60 ml/min/1.73 sqM); Sodium 141 mmol/L (137-145); Total Bilirubin 0.8 mg/dL (0.2-1.3); Total Protein 7.5 g/dL (6.3-8.2)
[2021-02-12] MEDS: METOPROLOL TARTRATE 25 MG TAB PO SCH (08:20)
[2021-02-12] MEDS: LORATADINE 10 MG TAB PO SCH (08:20)
[2021-02-12] MEDS: LOSARTAN 50 MG TAB PO SCH (08:20)
[2021-02-12] MEDS: amLODIPine 10 MG TAB PO SCH (08:20)
[2021-02-12] MEDS: NICOTINE 14MG/24HR PATCH TRANSDERM SCH (08:23)
[2021-02-12] MEDS ORDERED: lamoTRIgine 100 MG TAB PO SCH (09:00)
--- NOTE | 2021-02-12 10:09 | P.HP ---
Psychiatric H&P - . H&P Date: 02/12/21 History & Physical: Allergies Allergy/AdvReac Type Severity Reaction Status Date / Time molindone From [place] Allergy Rash/Hives Verified 02/11/21 15:00 chlorpromazine AdvReac Hallucinati Verified 02/11/21 15:00 From Thorazine ons Vital Signs Temp 98.4 F 02/12/21 06:40 Pulse 81 02/12/21 08:23 Resp 20 02/12/21 08:23 BP 152/84 02/12/21 08:23 Pulse Ox 97 02/11/21 15:02 Intake & Output 02/11/21 02/12/21 02/12/21 18:59 06:59 18:59 Weight 86.183 kg Laboratory Last Values WBC 14.8 k/uL (3.8-10.6) H 02/12/21 06:08 RBC 4.81 m/uL (4.30-5.90) 02/12/21 06:08 Hgb 15.5 gm/dL (13.0-17.5) 02/12/21 06:08 Hct 47.2 % (39.0-53.0) 02/12/21 06:08 MCV 98.1 fL (80.0-100.0) 02/12/21 06:08 MCH 32.1 pg (25.0-35.0) 02/12/21 06:08 MCHC 32.8 g/dL (31.0-37.0) 02/12/21 06:08 RDW 13.4 % (11.5-15.5) 02/12/21 06:08 Plt Count 252 k/uL (150-450) 02/12/21 06:08 MPV 7.7 02/12/21 06:08 Neutrophils % 77 % 02/12/21 06:08 Lymphocytes % 17 % 02/12/21 06:08 Monocytes % 3 % 02/12/21 06:08 Eosinophils % 2 % 02/12/21 06:08 Basophils % 0 % 02/12/21 06:08 Neutrophils # 11.4 k/uL (1.3-7.7) H 02/12/21 06:08 Lymphocytes # 2.5 k/uL (1.0-4.8) 02/12/21 06:08 Monocytes # 0.5 k/uL (0-1.0) 02/12/21 06:08 Eosinophils # 0.2 k/uL (0-0.7) 02/12/21 06:08 Basophils # 0.0 k/uL (0-0.2) 02/12/21 06:08 Sodium 141 mmol/L (137-145) 02/12/21 06:08 Potassium 4.0 mmol/L (3.5-5.1) 02/12/21 06:08 Chloride 109 mmol/L (98-107) H 02/12/21 06:08 Carbon Dioxide 24 mmol/L (22-30) 02/12/21 06:08 Anion Gap 8 mmol/L 02/12/21 06:08 BUN 14 mg/dL (9-20) 02/12/21 06:08 Creatinine 0.95 mg/dL (0.66-1.25) 02/12/21 06:08 Est GFR (CKD-EPI)AfAm >90 (>60 ml/min/1.73 sqM) 02/12/21 06:08 Est GFR (CKD-EPI)NonAf 82 (>60 ml/min/1.73 sqM) 02/12/21 06:08 Glucose 96 mg/dL (74-99) 02/12/21 06:08 Calcium 9.9 mg/dL (8.4-10.2) 02/12/21 06:08 Magnesium 1.9 mg/dL (1.6-2.3) 02/11/21 09:51 Total Bilirubin 0.8 mg/dL (0.2-1.3) 02/12/21 06:08 AST 27 U/L (17-59) 02/12/21 06:08 ALT 16 U/L (4-49) 02/12/21 06:08 Alkaline Phosphatase 88 U/L (38-126) 02/12/21 06:08 Creatine Kinase 160 U/L (55-170) 02/11/21 09:51 Total Protein 7.5 g/dL (6.3-8.2) 02/12/21 06:08 Albumin 4.3 g/dL (3.5-5.0) 02/12/21 06:08 TSH 0.857 mIU/L (0.465-4.680) 02/11/21 09:51 Urine Color Light Yellow 02/11/21 11:38 Urine Appearance Clear (Clear) 02/11/21 11:38 Urine pH 6.0 (5.0-8.0) 02/11/21 11:38 Ur Specific [place] 1.003 (1.001-1.035) 02/11/21 11:38 Urine Protein Negative (Negative) 02/11/21 11:38 Urine Glucose (UA) Negative (Negative) 02/11/21 11:38 Urine Ketones Negative (Negative) 02/11/21 11:38 Urine Blood Negative (Negative) 02/11/21 11:38 Urine Nitrite Negative (Negative) 02/11/21 11:38 Urine Bilirubin Negative (Negative) 02/11/21 11:38 Urine Urobilinogen <2.0 mg/dL (<2.0) 02/11/21 11:38 Ur Leukocyte Esterase Negative (Negative) 02/11/21 11:38 Urine Opiates Screen Not Detected (NotDetected) 02/11/21 11:38 Ur Oxycodone Screen Not Detected (NotDetected) 02/11/21 11:38 Urine Methadone Screen Not Detected (NotDetected) 02/11/21 11:38 Ur Propoxyphene Screen Not Detected (NotDetected) 02/11/21 11:38 Ur Barbiturates Screen Not Detected (NotDetected) 02/11/21 11:38 U Tricyclic Antidepress Not Detected (NotDetected) 02/11/21 11:38 Ur Phencyclidine Scrn Not Detected (NotDetected) 02/11/21 11:38 Ur Amphetamines Screen Not Detected (NotDetected) 02/11/21 11:38 U Methamphetamines Scrn Not Detected (NotDetected) 02/11/21 11:38 U Benzodiazepines Scrn Not Detected (NotDetected) 02/11/21 11:38 Urine Cocaine Screen Not Detected (NotDetected) 02/11/21 11:38 U Marijuana (THC) Screen Not Detected (NotDetected) 02/11/21 11:38 Serum Alcohol <10 mg/dL 02/11/21 09:51 Coronavirus (PCR) Not Detected (Not Detectd) 02/11/21 11:38 02/12/21 10:02 IDENTIFYING DATA: Patient is a 70-year-old -Slov[place] male who currently lives with his daughter and has 2 kids and is unemployed. HPI: Patient presented to the hospital for psychiatric evaluation and noncompliance with his medications. Patient has a history of schizoaffective disorder bipolar type and has had numerous psychiatric admissions. Patient was last discharged from mental health unit in late December 2020. Patient is currently on active mental treatment order until February 2021. Patient apparently has been stopped taking his medications as reported by [facility]. Patient follows up with Dr. Cullen as a psychiatrist. Patient's UDS was negative. Patient was seen in the hallways and agreeable to speak to technical document writer. Patient was initially directable however he can yelling and screaming at technical document writer but his medications. He states that he stopped taking them because they were "causing pounding in crackling in my head" and described various other vague side effects. He states that he does not trust any of his providers at [facility] and he feels that Dr. Cullen does not listen to him. He is refusing to take medications at this time. He spoke negatively about his psychiatrist. He was loud and impulsive rambling. He began getting more agitated in the office and started waving and flailing his arms. He claims that his sleep has been poor and his appetite as been poor. Patient denies any suicidal or homicidal ideations intent or plan. At this time patient denies any auditory or visual hallucinations. Patient admits to using cigarettes only and no other recreational drugs. PAST PSYCHIATRIC HISTORY: Patient states that he has a history of schizoaffective disorder. Patient was previously on Depakote and Risperdal, and most recently on lamictal and seroquel. Patient has been psychiatrically hospitalized several times in the past most recently one month ago. Patient currently follows up at [facility] with Dr. Cullen is a psychiatrist. Patient denies any history of suicide attempts in the past. PMH: Hypertension ALLERGIES: as per EMR CHEMICAL DEPENDENCY HISTORY: as per HPI FAMILY PSYCHIATRIC/SUBSTANCE USE HISTORY: denies SOCIAL HISTORY: Patient was born and raised in [place]. He states that he moved around a lot between [place] and [facility] [place]. He states that he completed high school and did some college. He claims that he was in correction in the past approximately 15 years ago for felonious assault. He has 2 kids and currently lives with his daughter in a house and is currently unemployed. MENTAL STATUS EXAM: General Appearance: Patient appears to be tall, thin, stated age is alert, difficult to redirect, and yet is irritable and agitated. Patient appears to have fair hygiene and grooming. Behavior: Patient is seated without any agitated behavior. Irritable and impuls brayan Speech: Patient's speech is fluent and nonpressured. Loud, screaming. Mood/Affect: Patient reports their mood is "not good", affect is incongruent Suicidality/Homicidality: Patient denies having any homicidal ideation intent or plan. Denies any suicidal ideations intent or plan Perceptions: Patient denies any visual hallucinations and denies any auditory hallucinations Though content/process: Patient rambles at times, tangential/circumstantial. Poor insight. Demanding. Memory and concentration: AOX3, grossly intact for the purposes of this session. Can spell "WORLD" backwards Judgment and insight: poor and impulsive STRENGTHS/WEAKNESSES: strength is that patient is resilient]. Weakness is that patient has poor judgment and is impulsive INTELLECT: average IMPRESSIONS: Schizoaffective disorder, bipolar type Nicotine dependence Noncompliance with medication regimen PLAN: -Patient is admitted under involuntary status to [facility] for stabilization of psychiatric symptoms and safety. Patient has not signed adult voluntary form and medication consent and is placed in patient's chart. Patient is currently on an active court order until 03/07/2021. -Medications : Will start patient on prolixin 2.5 mg bid for mood stabilization/psychosis. We'll also start patient on lamictal 25 mg bid. If patient refuses medications then he will receive prolixin IM as he is court ordered -Ativan and haldol PRN for agitation/aggression -Patient was informed of the risks, benefits and side effects of the medication and patient refused to sign medication consent form. -Internal Medicine consult to perform medical evaluation and physical. -NRT - nicotine patch -SW on board for discharge planning. Encourage patient to participate in groups to work on coping skills.
[2021-02-12] MEDS ORDERED: flUPHENAZine 2.5 MG/ML (MDV) 10 ML VIAL IM PRN (10:10)
[2021-02-12] MEDS: lamoTRIgine 25 MG TAB PO SCH ×2 (11:00→20:01)
--- NOTE | 2021-02-12 16:50 | CONS ---
CONSULTATION REASON FOR CONSULTATION: Consultation in the psych landry. This patient is 70 years old. Home medicines include: 1. Lamictal 100 mg daily. 2. Loratadine 10 mg daily. 3. Losartan 50 mg daily. 4. Melatonin 5 at night. 5. Metoprolol 25 mg daily. 6. Seroquel 50 at night. 7. Nicotine patch 14 mg daily. 8. 10 mg daily. He was admitted to the hospital by Dr. Ballesteros. He lives with his daughter and two kids, unemployed. He was discharged from the mental health unit back in December 2020. He had stopped taking all his medicines by [facility] because he states they were causing pounding and crackling in his head. He felt that Dr. Cullen did not listen to him. He is refusing to take medicines at this time. He spoke negatively about his psychiatrist. He had loud and impulsive rambling, flailing of arms. He was given Haldol through the IV. The last time I saw him in the office, he appeared to be fairly stable mentally. Cardiovascular: S1-S2. Lungs clear. Endocrine: He is obese. GI soft. Psych: For psych recommendations and exam, please see their note. History of schizoaffective disorder, bipolar type, nicotine addiction, noncompliance with medications, hypertension. Plan is continue his home medicines for hypertension and [facility] adjust his psych drugs. I restarted all his home medicines. Currently his blood pressure is little high, 140s to 150s over 60s to 80s. He is saturating 97% on room air. Temperature 98.4, respiratory rate 16-20, pulse 60-80. Continue current treatment. Follow up in next 24 to 48 hours. MMODL / IJN: [id number] /
[2021-02-12] MEDS: MELATONIN 5 MG TABLET PO SCH (20:02)
[2021-02-13] MEDS: lamoTRIgine 25 MG TAB PO SCH ×2 (09:00→21:11)
[2021-02-13] MEDS: LORATADINE 10 MG TAB PO SCH (09:00)
[2021-02-13] MEDS: METOPROLOL TARTRATE 25 MG TAB PO SCH (09:00)
[2021-02-13] MEDS: LOSARTAN 50 MG TAB PO SCH (09:00)
[2021-02-13] MEDS: amLODIPine 10 MG TAB PO SCH (09:00)
[2021-02-13] MEDS: NICOTINE 14MG/24HR PATCH TRANSDERM SCH (09:03)
--- NOTE | 2021-02-13 12:49 | P.PN ---
Progress Note - Text Progress Note Date: 02/13/21 Interval History: Patient was seen resting in bed and was directable and agreeable to speak with junior underwriter in his room. Currently, the patient states that he is just upset because he feels like the medications have been causing him significant side effects. The patient reports that he is been feeling like his brain "is constantly tingling and it is because of the medications but no one seems to listen to me!" The patient expresses that this has been causing him significant distress, especially since no one appears to be listening to him. He states that people just keep telling him to increase the medication or take more of the medication. He is currently not reporting any suicidal or homicidal ideation, intention, and/or plan. He is not reporting any auditory or visual hallucinations. Is denying any paranoia or other delusions. The patient reports that he is sleeping well and eating well. He is agreeable to take medications but would like to take as little as possible. The patient has been adherent with his medications. Mental Status Exam: General Appearance: Patient appears to be stated age is alert, directable, and cooperative. Fair hygiene and grooming. Behavior: Patient is seated in bed with mildly agitated behavior. Psychomotor activity appears elevated. Speech: Patient's speech is pressured, difficult to interrupt, slightly dysarthric. Mood/Affect: Mood is angry. Affect is irritable. Suicidality/Homicidality: Patient denies any suicidal or homicidal ideation, intention, and/or plan. Perceptions: The patient reports some visual disturbances in the form of spots. He denies any auditory hallucinations. He does report some somatic symptoms of "brain zaps." Though content/process: Some somatization is endorsed. Otherwise thought process appears to be with a flight of ideas. Memory and concentration: AOX3, grossly intact for the purposes of this session Judgment and insight: Poor Vital Signs Temp 97.4 F L 02/13/21 05:02 Pulse 60 02/13/21 05:02 Resp 18 02/13/21 05:02 BP 107/66 02/13/21 05:02 Pulse Ox 97 02/11/21 15:02 Assessment Schizoaffective disorder, bipolar type Nicotine dependence Noncompliance with medication regimen Plan: -Patient continues to meet criteria for inpatient psychiatric admission for symptom stabilization and safety. Patient is currently on active court on her until 03/07/21. -Medications: Increase Prolixin to 5 mg by mouth twice a day for mood stabilization/psychosis. - Patient is currently under court order, if he refuses, he will receive IM Prolixin 2.5 mg. Continue Lamictal 25 mg by mouth twice a day for mood stabilization -When necessary Ativan and Haldol for agitation/aggression. -Nicotine replacement therapy patch -SW on board for discharge planning. Encouraged the patient to participate in milieu.
[2021-02-13] MEDS: MELATONIN 5 MG TABLET PO SCH (21:11)
[2021-02-14 06:36] VITALS: TEMP 97.6
[2021-02-14] MEDS: LOSARTAN 50 MG TAB PO SCH (08:27)
[2021-02-14] MEDS: METOPROLOL TARTRATE 25 MG TAB PO SCH (08:27)
[2021-02-14] MEDS: NICOTINE 14MG/24HR PATCH TRANSDERM SCH (08:27)
[2021-02-14] MEDS: amLODIPine 10 MG TAB PO SCH (08:27)
[2021-02-14] MEDS: lamoTRIgine 25 MG TAB PO SCH ×2 (08:28→21:45)
[2021-02-14] MEDS: LORATADINE 10 MG TAB PO SCH (08:28)
--- NOTE | 2021-02-14 10:58 | P.PN ---
Progress Note - Text Progress Note Date: 02/14/21 Interval History: Patient was seen resting in bed and was directable and agreeable to speak with greeting card writer in the office. The patient was noted yesterday by staff to be upset after speaking with his sister over the phone. He is noted to be crying loudly and wringing his wrists. However, this morning, the patient is presenting well. He is currently not reporting any suicidal or homicidal ideation, intention,/or plan. He is not reporting any auditory or visual hallucinations. He is denying any paranoia or other delusions. The patient states that he feels "like I am cured." He states that he is not expressing any somatic symptoms at this time. He denies any issues regarding his sleep or his appetite. He has been adherent with his medications and is not endorsing any significant side effects at this time. The patient is agreeable to his long-acting injectable medication as he wishes to be discharged soon so he may attend his appointment with the activity aide this which he has had scheduled for many months now. Mental Status Exam: General Appearance: Patient appears to be stated age is alert, directable, and cooperative. Fair hygiene and grooming. Behavior: Patient is seated in the office without any agitated behavior. Psychomotor activity appears normal. Speech: Patient's speech is spontaneous, with normal rate, tone, but with elevated volume. Mood/Affect: Mood is "feeling really good." Affect is bright and expansive. Suicidality/Homicidality: Patient denies any suicidal or homicidal ideation, intention, and/or plan. Perceptions: The patient is not endorsing any auditory or visual hallucinations. He denies any somatic symptoms. Though content/process: No delusional thought content is endorsed. Thought process appears to be linear. Memory and concentration: AOX3, grossly intact for the purposes of this session Judgment and insight: Mildly improving Vital Signs Temp 97.6 F 02/14/21 06:36 Pulse 88 02/14/21 08:15 Resp 18 02/14/21 06:36 BP 147/83 02/14/21 08:15 Pulse Ox 97 02/11/21 15:02 Laboratory Results - Last 24 Hours 02/12/21 06:08 Vitamin B12 794.0 Assessment Schizoaffective disorder, bipolar type Nicotine dependence Noncompliance with medication regimen Plan: -Patient continues to meet criteria for inpatient psychiatric admission for symptom stabilization and safety. Patient is currently on active court on her until 03/07/21. -Medications: Discontinue oral Prolixin. Start Prolixin decanoate 25 mg IM to be administered today to be received to 3 weeks for psychosis. Continue Lamictal 25 mg by mouth twice a day for mood stabilization -When necessary Ativan and Haldol for agitation/aggression. -Nicotine replacement therapy patch -SW on board for discharge planning. Encouraged the patient to participate in milieu.
[2021-02-14] MEDS ORDERED: fluPHENAZine DECANOATE 25 MG/ML 5ML MDV IM ONE (11:00)
[2021-02-14 14:48] LABS: Folate, Serum 5.1 ng/mL (4.40-31.00)
[2021-02-14] MEDS: MELATONIN 5 MG TABLET PO SCH (21:45)
[2021-02-15] MEDS: LORATADINE 10 MG TAB PO SCH (08:58)
[2021-02-15] MEDS: LOSARTAN 50 MG TAB PO SCH (08:58)
[2021-02-15] MEDS: NICOTINE 14MG/24HR PATCH TRANSDERM SCH (08:58)
[2021-02-15] MEDS: METOPROLOL TARTRATE 25 MG TAB PO SCH (08:58)
[2021-02-15] MEDS: amLODIPine 10 MG TAB PO SCH (08:58)
[2021-02-15] MEDS: lamoTRIgine 25 MG TAB PO SCH ×2 (08:58→21:39)
--- NOTE | 2021-02-15 11:29 | P.PN ---
Progress Note - Text Progress Note Date: 02/15/21 Interval History: Patient was seen resting in bed and was directable and agreeable to speak with news writer in the office. The patient was noted yesterday by staff to be angry and agitated in the afternoon once again. He was noted to try to flip a table in the common area. The patient expresses that he felt sick with the medications yesterday and that is why he was not feeling so good and felt angry. Currently, the patient is not endorsing any significant issues regarding his mood. He is n ot reporting any suicidal or homicidal ideation, intention, and/or plan. He is not reporting any auditory or visual hallucinations. He is not reporting any paranoia or other delusions. The patient has been adherent with his medications but expresses that his medications cause him to feel worse. He does endorse some nausea and vomiting yesterday. The patient otherwise is not reporting any significant issues regarding sleep. He received a long-acting injectable Prolixin Decanoate yesterday. The patient does have an appointment with the cryptologic technician operator/analyst tomorrow afternoon. He still wishes to go to this appointment. Mental Status Exam: General Appearance: Patient appears to be stated age is alert, directable, and cooperative. Fair hygiene and grooming. Behavior: Patient is seated in the office without any agitated behavior. Psychomotor activity appears normal. Speech: Patient's speech is spontaneous, with normal rate, tone, but with elevated volume. Mood/Affect: Mood is "I'm okay doc." Affect is euthymic with appropriate range. Suicidality/Homicidality: Patient denies any suicidal or homicidal ideation, intention, and/or plan. Perceptions: The patient is not endorsing any auditory or visual hallucinations. Patient reports somatic symptoms yesterday but not today. Though content/process: No delusional thought content is endorsed. Thought process appears to be linear. Memory and concentration: AOX3, grossly intact for the purposes of this session Judgment and insight: Mildly improving Vital Signs Temp 97.6 F 02/14/21 06:36 Pulse 89 02/15/21 08:00 Resp 20 02/15/21 08:00 BP 161/73 02/15/21 08:00 Pulse Ox 97 02/11/21 15:02 Assessment Schizoaffective disorder, bipolar type Nicotine dependence Noncompliance with medication regimen Plan: -Patient continues to meet criteria for inpatient psychiatric admission for symptom stabilization and safety. Patient is currently on active court on her until 03/07/21. -Medications: Continue Prolixin decanoate 25 mg IM to be administered today to be received 2-3 weeks for psychosis. Continue Lamictal 25 mg by mouth twice a day for mood stabilization -When necessary Ativan and Haldol for agitation/aggression. -Nicotine replacement therapy patch -SW on board for discharge planning. Encouraged the patient to participate in milieu.
[2021-02-15 16:10] LABS: Basophils % (A) 0 %; Eosinophils # (A) 0.2 k/uL (0-0.7); Eosinophils % (A) 2 %; HCT 43.3 % (39.0-53.0); HGB 14.2 gm/dL (13.0-17.5); Lymphocytes # (A) 2.3 k/uL (1.0-4.8); Lymphocytes % (A) 23 %; MCHC 32.8 g/dL (31.0-37.0); MCV 97.3 fL (80.0-100.0); Mean Platelet Volume 7.8; Monocytes # (A) 0.3 k/uL (0-1.0); Monocytes % (A) 3 %; Neutrophils # (A) 7.1 k/uL (1.3-7.7); Neutrophils % (A) 71 %; Platelet Count 234 k/uL (150-450); RBC 4.45 m/uL (4.30-5.90); RDW 13.7 % (11.5-15.5)
[2021-02-15] MEDS: MELATONIN 5 MG TABLET PO SCH (21:39)
[2021-02-16] MEDS: LORATADINE 10 MG TAB PO SCH (08:10)
[2021-02-16] MEDS: amLODIPine 10 MG TAB PO SCH (08:10)
[2021-02-16] MEDS: LOSARTAN 50 MG TAB PO SCH (08:10)
[2021-02-16] MEDS: METOPROLOL TARTRATE 25 MG TAB PO SCH (08:10)
[2021-02-16] MEDS: NICOTINE 14MG/24HR PATCH TRANSDERM SCH (08:10)
[2021-02-16] MEDS: lamoTRIgine 25 MG TAB PO SCH (08:10)
[2021-02-16 09:16] VITALS: BP 129/67; PULSE 67; RESP 16
--- NOTE | 2021-02-16 11:00 | P.DS ---
Providers Date of admission: 02/11/21 14:09 Expected date of discharge: 02/16/21 Attending physician: Gutierrez Allred MD Consults: 02/11/21 14:21 Consult Physician Routine Consulting Provider: Ally Herndon Consult Reason/Comments: History and physical Do you want consulting provider notified?: Yes Primary care physician: Ally Herndon - Discharge Diagnosis(es) (1) Schizoaffective disorder, bipolar type Current Visit: Yes Status: Acute Priority: High (2) Nicotine dependence Current Visit: Yes Status: Chronic Priority: Medium Hospital Course: Admission HPI: Initial psychiatric evaluation was completed by Dr. Ballesteros on 02/12/2021 who wrote: " Patient is a 70-year-old -[place] male who currently lives with his daughter and has 2 kids and is unemployed. Patient presented to the hospital for psychiatric evaluation and noncompliance with his medications. Patient has a history of schizoaffective disorder bipolar type and has had numerous psychiatric admissions. Patient was last discharged from mental health unit in late December 2020. Patient is currently on active mental treatment order until February 2021. Patient apparently has been stopped taking his medications as reported by [facility]. Patient follows up with Dr. Cullen as a psychiatrist. Patient's UDS was negative. Patient was seen in the hallways and agreeable to speak to sports book writer. Patient was initially directable however he can yelling and screaming at sports book writer but his medications. He states that he stopped taking them because they were "causing pounding in crackling in my head" and described various other vague side effects. He states that he does not trust any of his providers at [facility] and he feels that Dr. Cullen does not listen to him. He is refusing to take medications at this time. He spoke negatively about his psychiatrist. He was loud and impulsive rambling. He began getting more agitated in the office and started waving and flailing his arms. He claims that his sleep has been poor and his appetite as been poor. Patient denies any suicidal or homicidal ideations intent or plan. At this time patient denies any auditory or visual hallucinations. Patient admits to using cigarettes only and no other recreational drugs. Patient states that he has a history of schizoaffective disorder. Patient was previously on Depakote and Risperdal, and most recently on lamictal and seroquel. Patient has been psychiatrically hospitalized several times in the past most recently one month ago. Patient currently follows up at [facility] with Dr. Cullen is a psychiatrist. Patient denies any history of suicide attempts in the past." Hospital course: Upon admission to the unit patient was initially noted to be impulsive, expansive, loud, and difficult to direct. Patient was however directable and agreeable to commence treatment. Patient got along well with other patients on the unit and followed unit protocol. Patient was compliant with the medications and denied any side effects throughout hospital course. Patient was started on Prolixin for management of mood stabilization and psychosis. Patient spoke of his stressors and engaged in therapy both group and individual. Patient was also seen by medical team for history and physical exam. Lamictal was also added to his regimen to aid with mood stabilization. Prolixin was gradually titrated to a final oral dose of 10 mg daily and the patient was transitioned to Prolixin Decanoate 25 mg IM. The patient displayed gradual improvement in regards to his mood stability. He did have occasional episodes of outbursts and was initially scheduled for discharge on 02/15/21, however the treatment team felt it was appropriate to observe the patient for any further outbursts and behavioral issues. The patient did well on his regimen of Prolixin decanoate and Lamictal. The patient displayed significant improvement in regards to his impulsivity, mood lability, and became more future oriented with better insight, judgment, and coping skills. On the day of discharge, the patient is not endorsing any suicidal or homicidal ideation, intention, and/or plan. He is not reporting any auditory or visual hallucinations. He is denying any paranoia or other delusions. He denies any firearms or weapons. The patient is not reporting any significant side effects of his medications. He was counseled at length on his medications and the importance for regular adherence as well as appropriate follow-up with his outpatient appointments. Prior to discharge, family meeting will be arranged by family welfare social work professor to answer questions and ensure safety. The patient does not have any significant history of substance abuse however was counseled on abstaining from all substances including alcohol, tommy clint, and tobacco. Mental status exam: General Appearance: Patient appears to be stated age is alert, pleasant, and cooperative. Patient is in no acute distress and has fair hygiene and grooming. Behavior: Patient is calmly seated without any agitated behavior. Psychomotor activity appears normal this morning. Speech: Patient's speech is fluent and nonpressured. Mood/Affect: Patient reports their mood is "much better", affect is congruent and euthymic to bright. Suicidality/Homicidality: Patient denies any suicidal or homicidal ideation, intention, and/or plan. Perceptions: Patient denies any auditory or visual hallucinations. Though content/process: There is no evidence of any delusional thought content and thought process is linear and goal-directed. The patient is future lisa delgado. Memory and concentration: AOX3, grossly intact for the purposes of this session. Can spell "WORLD" backwards correctly. Judgment and insight: Improved with guarded prognosis Vital Signs Temp 97.6 F 02/14/21 06:36 Pulse 67 02/16/21 08:10 Resp 16 02/16/21 08:10 BP 129/67 02/16/21 08:10 Pulse Ox 97 02/11/21 15:02 Impression: Schizoaffective disorder, bipolar type Nicotine dependence Plan: -Continue with discharge today as patient has improved and stabilized psychiatrically and is not currently an imminent threat to himsel and/or others. Patient will remain at chronically elevated risk for harm to self and/or others due to his impulsivity and history of nonadherence with his treatment. -Continue medications: Prolixin decanoate 25 mg IM was administered on 02/14/21 to be administered [id number], with his next dose due on 02/28/21. Lamictal 25 mg by mouth twice a day for mood stabilization -Patient was counseled on the need for medication compliance and appropriate follow-up at mental health and also primary care for medical issues. Patient verbalized understanding and agreed. -Social work to arrange for and conduct family meeting to ensure safety upon discharge and answer any questions/concerns. Social work also to arrange for patients follow up appointments with [facility] for psychiatric care along with follow up with primary care provider. -Patient counseled on abstaining from recreational drugs and marijuana and alcohol. Was informed/educated on the adverse effects on their physical and mental health. Patient verbally agreed and understood. -Patient was instructed to return to the hospital or seek immediate medical care if their psychiatric or medical symptoms do worsen or reoccur. -Psychoeducation and supportive therapy provided to patient. Risks and benefits of pharmacological treatment versus the risks and benefits of nontreatment weight and discussed. Informed consent discussion held. Common side effects of psychotropics discussed such as, but not limited to headache, GI disturbance, sexual dysfunction, movement disorders, sedation, and orthostatic hypotension. Life threatening and blackbox warnings of prescribed medications also discussed. Potential risks of operating a vehicle or heavy machinery discussed with patient at length. Advised on importance of compliance and a reliable and r esponsible manner. Patient advised to review FDA consumer labeling of all medications prior to taking. Patient verbalized understanding of potential risks, and agrees with current treatment plan. Patient advised to medically contact physician/emergency personnel if any acute changes in condition occur. Allergies Allergy/AdvReac Type Severity Reaction Status Date / Time molindone [From Moban] Allergy Rash/Hives Verified 02/11/21 15:00 chlorpromazine AdvReac Hallucinati Verified 02/11/21 15:00 [From Thorazine] ons Laboratory Results WBC 10.0 k/uL (3.8-10.6) 02/15/21 15:59 RBC 4.45 m/uL (4.30-5.90) 02/15/21 15:59 Hgb 14.2 gm/dL (13.0-17.5) 02/15/21 15:59 Hct 43.3 % (39.0-53.0) 02/15/21 15:59 MCV 97.3 fL (80.0-100.0) 02/15/21 15:59 MCH 32.0 pg (25.0-35.0) 02/15/21 15:59 MCHC 32.8 g/dL (31.0-37.0) 02/15/21 15:59 RDW 13.7 % (11.5-15.5) 02/15/21 15:59 Plt Count 234 k/uL (150-450) 02/15/21 15:59 MPV 7.8 02/15/21 15:59 Neutrophils % 71 % 02/15/21 15:59 Lymphocytes % 23 % 02/15/21 15:59 Monocytes % 3 % 02/15/21 15:59 Eosinophils % 2 % 02/15/21 15:59 Basophils % 0 % 02/15/21 15:59 Neutrophils # 7.1 k/uL (1.3-7.7) 02/15/21 15:59 Lymphocytes # 2.3 k/uL (1.0-4.8) 02/15/21 15:59 Monocytes # 0.3 k/uL (0-1.0) 02/15/21 15:59 Eosinophils # 0.2 k/uL (0-0.7) 02/15/21 15:59 Basophils # 0.0 k/uL (0-0.2) 02/15/21 15:59 Sodium 141 mmol/L (137-145) 02/12/21 06:08 Potassium 4.0 mmol/L (3.5-5.1) 02/12/21 06:08 Chloride 109 mmol/L (98-107) H 02/12/21 06:08 Carbon Dioxide 24 mmol/L (22-30) 02/12/21 06:08 Anion Gap 8 mmol/L 02/12/21 06:08 BUN 14 mg/dL (9-20) 02/12/21 06:08 Creatinine 0.95 mg/dL (0.66-1.25) 02/12/21 06:08 Est GFR (CKD-EPI)AfAm >90 (>60 ml/min/1.73 sqM) 02/12/21 06:08 Est GFR (CKD-EPI)NonAf 82 (>60 ml/min/1.73 sqM) 02/12/21 06:08 Glucose 96 mg/dL (74-99) 02/12/21 06:08 Calcium 9.9 mg/dL (8.4-10.2) 02/12/21 06:08 Magnesium 1.9 mg/dL (1.6-2.3) 02/11/21 09:51 Total Bilirubin 0.8 mg/dL (0.2-1.3) 02/12/21 06:08 AST 27 U/L (17-59) 02/12/21 06:08 ALT 16 U/L (4-49) 02/12/21 06:08 Alkaline Phosphatase 88 U/L (38-126) 02/12/21 06:08 Creatine Kinase 160 U/L (55-170) 02/11/21 09:51 Total Protein 7.5 g/dL (6.3-8.2) 02/12/21 06:08 Albumin 4.3 g/dL (3.5-5.0) 02/12/21 06:08 Vitamin B12 794.0 pg/mL (200.0-944.0) 02/12/21 06:08 Vit D 1,25-Dihydroxy 52 pg/mL (20 - 79) 02/12/21 06:08 Folate 5.10 ng/mL (4.40-31.00) 02/12/21 06:08 TSH 0.857 mIU/L (0.465-4.680) 02/11/21 09:51 Urine Color Light Yellow 02/11/21 11:38 Urine Appearance Clear (Clear) 02/11/21 11:38 Urine pH 6.0 (5.0-8.0) 02/11/21 11:38 Ur Specific [place] 1.003 (1.001-1.035) 02/11/21 11:38 Urine Protein Negative (Negative) 02/11/21 11:38 Urine Glucose (UA) Negative (Negative) 02/11/21 11:38 Urine Ketones Negative (Negative) 02/11/21 11:38 Urine Blood Negative (Negative) 02/11/21 11:38 Urine Nitrite Negative (Negative) 02/11/21 11:38 Urine Bilirubin Negative (Negative) 02/11/21 11:38 Urine Urobilinogen <2.0 mg/dL (<2.0) 02/11/21 11:38 Ur Leukocyte Esterase Negative (Negative) 02/11/21 11:38 Urine Opiates Screen Not Detected (NotDetected) 02/11/21 11:38 Ur Oxycodone Screen Not Detected (NotDetected) 02/11/21 11:38 Urine Methadone Screen Not Detected (NotDetected) 02/11/21 11:38 Ur Propoxyphene Screen Not Detected (NotDetected) 02/11/21 11:38 Ur Barbiturates Screen Not Detected (NotDetected) 02/11/21 11:38 U Tricyclic Antidepress Not Detected (NotDetected) 02/11/21 11:38 Ur Phencyclidine Scrn Not Detected (NotDetected) 02/11/21 11:38 Ur Amphetamines Screen Not Detected (NotDetected) 02/11/21 11:38 U Methamphetamines Scrn Not Detected (NotDetected) 02/11/21 11:38 U Benzodiazepines Scrn Not Detected (NotDetected) 02/11/21 11:38 Urine Cocaine Screen Not Detected (NotDetected) 02/11/21 11:38 U Marijuana (THC) Screen Not Detected (NotDetected) 02/11/21 11:38 Serum Alcohol <10 mg/dL 02/11/21 09:51 Coronavirus (PCR) Not Detected (Not Detectd) 02/11/21 11:38 Patient Condition at Discharge: Stable Plan - Discharge Summary Discharge Rx Participant: No New Discharge Prescriptions: New lamoTRIgine [LaMICtal] 25 mg PO BID 30 Days tab Melatonin 5 mg PO HS 30 Days tablet fluPHENAZine decanoate [Prolixin Decanoate] 25 mg IM [id number] #1 each Continue Loratadine [Claritin] 10 mg PO DAILY 30 Days tab Losartan [Cozaar] 50 mg PO DAILY 30 Days tab Metoprolol Tartrate [Lopressor] 25 mg PO DAILY 30 Days tab amLODIPine [Norvasc] 10 mg PO DAILY 30 Days tab Discontinued lamoTRIgine [LaMICtal] 100 mg PO DAILY 30 Days tab QUEtiapine [SEROquel] 50 mg PO HS 30 Days tab Nicotine 14Mg/24Hr Patch [Habitrol] 1 patch TRANSDERM DAILY 14 Days patch Melatonin 5 mg PO HS 30 Days tablet Acetaminophen Tab [Tylenol] 650 mg PO Q4HR PRN tab PRN Reason: Pain/Discomfort Discharge Medication List Loratadine [Claritin] 10 mg PO DAILY 30 Days tab 05/09/20 [Rx] Losartan [Cozaar] 50 mg PO DAILY 30 Days tab 01/26/21 [Rx] Metoprolol Tartrate [Lopressor] 25 mg PO DAILY 30 Days tab 01/26/21 [Rx] amLODIPine [Norvasc] 10 mg PO DAILY 30 Days tab 01/26/21 [Rx] Melatonin 5 mg PO HS 30 Days tablet 02/15/21 [Rx] fluPHENAZine decanoate [Prolixin Decanoate] 25 mg IM [id number] #1 each 02/15/21 [Rx] lamoTRIgine [LaMICtal] 25 mg PO BID 30 Days tab 02/15/21 [Rx] Follow up Appointment(s)/Referral(s): [facility] [Outside] - 02/17/21 3:00 pm (02/17/2021 3:00PM - 4:00PM [facility] 02/23/2021 10:00AM - 11:00AM JE[facility] ROME by Phone [facility] 03/01/2021 11:30AM - 12:00PM [facility] ) Carol Stevens MD [REFERRING] - 1-2 days Patient Instructions/Handouts: How to Stop Smoking (ED), Schizoaffective Disorder (DC) Activity/Diet/Wound Care/Special Instructions: Activity and diet as tolerated. Avoid the use of street drugs and alcohol. Take all medications as prescribed. When you are in need of refills on your medications please contact your medical provider and/or outpatient psychiatrist to have this done. Please go to scheduled outpatient appointment for aftercare treatment. If symptoms return or become worse, call the crisis line at and/or go to the nearest emergency room for evaluation. Discharge Disposition: HOME SELF-CARE
== END 2021-02-16 13:07 | disposition home or self-care (01) | DRG 885 ==
LOC: EC 09:00 → 3MHU 14:09
PROVIDERS: ADMIT Psychiatry & Neurology Psychiatry; ATTEND Psychiatry & Neurology Psychiatry
DX: F25.0 Schizoaffective disorder, bipolar type (principal); Z91.128 Patient's intentional underdosing of medication regimen for other reason; E66.9 Obesity, unspecified; Z20.822 Contact with and (suspected) exposure to COVID-19; T50.906A Underdosing of unspecified drugs, medicaments and biological substances, initial encounter; I10 Essential (primary) hypertension; Z68.26 Body mass index [BMI] 26.0-26.9, adult; F17.210 Nicotine dependence, cigarettes, uncomplicated; Z71.6 Tobacco abuse counseling; Z79.899 Other long term (current) drug therapy; Z56.0 Unemployment, unspecified; Y63.6 Underdosing and nonadministration of necessary drug, medicament or biological substance; Z88.8 Allergy status to other drugs, medicaments and biological substances
CPT/HCPCS: 36415; 71045; 80053; 80306; 80320; 81003; 82075; 82550; 82607; 82652; 82746; 83735; 84443; 85025; 87635; 90662; 90732; 99285

== ENCOUNTER 2023-06-04 14:44 | Inpatient (IN) | payer MEDICARE, OTHER ==
--- NOTE | 2023-06-04 16:17 | ED ---
General Adult HPI - General Chief complaint: Psychiatric Symptoms Stated complaint: Mental Health Time Seen by Provider: 06/04/23 15:23 Source: patient, RN notes reviewed Mode of arrival: ambulatory Limitations: no limitations - History of Present Illness Initial comments: Patient is a 72-year-old male presenting to the emergency department for mental health evaluation. Patient states he was also agitated with his estimator project manager. Patient states his estimator project manager was agitated with him. Patient admits to drinking some alcohol last night otherwise does not normally drink. No street drugs. No new hallucinations however patient does have a history of hallucinations years ago associated with medications that he took. No new physical complaints. - Related Data Home Medications Medication Instructions Recorded Confirmed Cholecalciferol [Vitamin D3 (25 25 mcg PO DAILY 06/04/23 06/04/23 Mcg = 1000 Iu)] Cyanocobalamin (Vitamin B-12) 1,000 mcg PO DAILY 06/04/23 06/04/23 [Vitamin B-12] Furosemide [Lasix] 20 mg PO DAILY 06/04/23 06/04/23 Losartan [Cozaar] 25 mg PO DAILY 06/04/23 06/04/23 Potassium Chloride ER [K-Dur 10] 10 meq PO DAILY 06/04/23 06/04/23 Previous Rx's Medication Instructions Recorded Loratadine [Claritin] 10 mg PO DAILY 30 Days tab 05/09/20 Metoprolol Tartrate [Lopressor] 25 mg PO DAILY 30 Days tab 01/26/21 amLODIPine [Norvasc] 10 mg PO DAILY 30 Days tab 01/26/21 Allergies Allergy/AdvReac Type Severity Reaction Status Date / Time molindone [From Moban] Allergy Rash/Hives Verified 06/04/23 14:54 chlorpromazine AdvReac Hallucinati Verified 06/04/23 14:54 [From Thorazine] ons Review of Systems ROS Statement: Those systems with pertinent positive or pertinent negative responses have been documented in the HPI. ROS Other: All systems not noted in ROS Statement are negative. Constitutional: Denies: fever Eyes: Denies: eye pain ENT: Denies: ear pain Respiratory: Denies: cough Past Medical History Past Medical History: Hypertension History of Any Multi-Drug Resistant Organisms: None Reported Past Surgical History: Heart Catheterization Past Psychological History: Anxiety, Schizophrenia Smoking Status: Current every day smoker Past Alcohol Use History: None Reported Past Drug Use History: None Reported - Past Family History Family Family Medical History: Unable to Obtain General Exam Limitations: no limitations General appearance: alert, in no apparent distress Head exam: Present: normocephalic Eye exam: Present: normal appearance Neck exam: Present: normal inspection Respiratory exam: Present: normal lung sounds bilaterally Cardiovascular Exam: Present: regular rate, normal rhythm GI/Abdominal exam: Present: soft. Absent: tenderness Extremities exam: Present: normal inspection Neurological exam: Present: alert Psychiatric exam: Present: other (Patient gets agitated when discussing his estimator project manager) Skin exam: Present: normal color Course Vital Signs 06/04/23 14:50 Temperature 98.1 F Pulse Rate 66 Respiratory 16 Rate Blood Pressure 140/72 O2 Sat by Pulse 100 Oximetry Medical Decision Making - Medical Decision Making Was pt. sent in by a medical professional or institution ([facility], [facility]ER, urgent care, hospital, or usp...) When possible be specific @ -Patient was sent in by the court Did you speak to anyone other than the patient for history (EMS, parent, family, police, friend...)? What history was obtained from this source @ -No Did you review nursing and triage notes (agree or disagree)? Why? @ -I reviewed and agree with nursing and triage notes Were old charts reviewed (outside hosp., previous admission, EMS record, old EKG, old radiological studies, urgent care reports/EKG's, usp records)? Report findings @ -Previous admissions reviewed Differential Diagnosis (chest pain, altered mental status, abdominal pain women, abdominal pain men, vaginal bleeding, weakness, fever, dyspnea, syncope, headache, dizziness, GI bleed, back pain, seizure, CVA, palpatations, mental health, musculoskeletal)? @ -Differential Mental Health Depression, anxiety, bipolar, psychosis, schizophrenia, borderline personality, situational depression, adjustment disorder, behavioral disorder, brain tumor, malingering, substance abuse, encephalopathy, medication reaction, dementia, hypothyroidism, degenerative neurologic disorder, lupus.... This is not meant to be all-inclusive list EKG interpreted by me (3pts min.). @ -As above X-rays interpreted by me (1pt min.). @ -None done CT interpreted by me (1pt min.). @ -None done U/S interpreted by me (1pt. min.). @ -None done What testing was considered but not performed or refused? (CT, X-rays, U/S, labs)? Why? @ -None What meds were considered but not given or refused? Why? @ -None Did you discuss the management of the patient with other professionals (professionals i.e. , PA, CAN MARKER, lab, RT, psych nurse, social media marketing specialist, estimator project manager, teacher, commanding officer motorized squad, clinical case manager)? Give summary @ -Case was discussed with mental health worker with plans for admission Was smoking cessation discussed for >3mins.? @ -No Was critical care preformed (if so, how long)? @ -No Were there social determinants of health that impacted care today? How? (Homelessness, low income, unemployed, alcoholism, drug addiction, transportation, low edu. Level, literacy, decrease access to med. care, senior living, rehab)? @ -No Was there de-escalation of care discussed even if they declined (Discuss DNR or withdrawal of care, Hospice)? DNR status @ -No What co-morbidities impacted this encounter? (DM, HTN, Smoking, COPD, CAD, Cancer, CVA, ARF, Chemo, Hep., AIDS, mental health diagnosis, sleep apnea, morbid obesity)? @ -None Was patient admitted / discharged? Hospital course, mention meds given and route, prescriptions, significant lab abnormalities, going to OR and other p ertinent info. @ -Patient will be admitted for psychiatric care. Positive clinical certificate completed Undiagnosed new problem with uncertain prognosis? @ -No Drug Therapy requiring intensive monitoring for toxicity (Heparin, Nitro, Insulin, Cardizem)? @ -No Were any procedures done? @ -No Diagnosis/symptom? @ -Psychosis Acute, or Chronic, or Acute on Chronic? @ -Acute Uncomplicated (without systemic symptoms) or Complicated (systemic symptoms)? @ -Default Side effects of treatment? @ -No Exacerbation, Progression, or Severe Exacerbation? @ -No Poses a threat to life or bodily function? How? (Chest pain, [place], [place], pneumonia, PE, COPD, DKA, ARF, appy, cholecystitis, CVA, Diverticulitis, Homicidal, Suicidal, threat to staff... and all critical care pts) @ -No - Lab Data Lab Results 06/04/23 Range/Units 16:28 Urine Opiates Screen Not Detected (NotDetected) Ur Oxycodone Screen Not Detected (NotDetected) Urine Methadone Screen Not Detected (NotDetected) Ur Barbiturates Screen Not Detected (NotDetected) U Tricyclic Antidepress Not Detected (NotDetected) Ur Phencyclidine Scrn Not Detected (NotDetected) Ur Amphetamines Screen Not Detected (NotDetected) U Methamphetamines Scrn Not Detected (NotDetected) U Benzodiazepines Scrn Not Detected (NotDetected) Urine Cocaine Screen Not Detected (NotDetected) U Marijuana (THC) Screen Not Detected (NotDetected) Disposition Clinical Impression: Psychosis Disposition: TRANSFER TO PSYCH HOSP/UNIT Is patient prescribed a controlled substance at d/c from ED?: No Referrals: Leonard Herndon MD [Primary Care Provider] - 1-2 days Time of Disposition: 18:23
[2023-06-04 16:59] LABS: Amphetamine Screen,Urine Not Detected (NotDetected); Barbiturate Screen,Urine Not Detected (NotDetected); Benzodiazepines Screen,Urine Not Detected (NotDetected); Cocaine Screen,Urine Not Detected (NotDetected); Methadone Screen, Urine Not Detected (NotDetected); Opiate Screen,Urine Not Detected (NotDetected); Oxycodone Screen, Urine Not Detected (NotDetected); Phencyclidine Screen,Urine Not Detected (NotDetected); Tricyclic Antidepressant,Urine Not Detected (NotDetected); Urn Cannabinoid Scrn Not Detected (NotDetected)
[2023-06-04] MEDS ORDERED: MAGNESIUM HYDROXIDE 2,400 MG/30 ML CUP PO PRN (20:45)
[2023-06-04] MEDS ORDERED: MAG HYDROX/AL HYDROX/SIMETH 30 ML CUP PO PRN (20:45)
[2023-06-04] MEDS ORDERED: IBUPROFEN 600 MG TAB PO PRN (20:45)
[2023-06-04] MEDS ORDERED: LORazepam 2 MG/ML INJ IM PRN (20:45)
[2023-06-04] MEDS ORDERED: HALOPERIDOL LACTATE 5 MG/ML 1 ML VIAL IM PRN (20:45)
[2023-06-04] MEDS: LORazepam 1 MG TAB PO STA (22:23)
[2023-06-04] MEDS: ZIPRASIDONE 20 MG VIAL IM STA (22:24)
[2023-06-05] MEDS: FUROSEMIDE 20 MG TAB PO SCH (08:49)
[2023-06-05] MEDS: CHOLECALCIFEROL 25 MCG (1000 IU) TABLET PO SCH (08:49)
[2023-06-05] MEDS: amLODIPine 10 MG TAB PO SCH (08:49)
[2023-06-05] MEDS: CYANOCOBALAMIN 500 MCG TAB PO SCH (08:49)
[2023-06-05] MEDS: LOSARTAN 25 MG TAB PO SCH (08:49)
[2023-06-05] MEDS: LORATADINE 10 MG TAB PO SCH (08:49)
[2023-06-05] MEDS: POTASSIUM CHLORIDE ER 10 MEQ TAB.ER.PRT PO SCH (08:50)
[2023-06-05] MEDS: METOPROLOL TARTRATE 25 MG TAB PO SCH (08:50)
[2023-06-05] MEDS: NICOTINE 14MG/24HR PATCH TRANSDERM SCH (08:50)
[2023-06-05] MEDS: ARIPiprazole 5 MG TAB PO SCH (12:34)
--- NOTE | 2023-06-05 13:14 | P.HP ---
Psychiatric H&P - . H&P Date: 06/05/23 History & Physical: Allergies Allergy/AdvReac Type Severity Reaction Status Date / Time molindone from [place] Allergy Rash/Hives Verified 06/04/23 14:54 chlorpromazine AdvReac Hallucinati Verified 06/04/23 14:54 From Thorazine ons Vital Signs Temp 97.1 F L 06/05/23 06:33 Pulse 80 06/05/23 06:33 Resp 16 06/05/23 06:33 BP 150/76 06/05/23 06:33 Pulse Ox 98 06/05/23 06:33 FiO2 Intake & Output 06/04/23 06/05/23 06/05/23 18:59 06:59 18:59 Weight 84.368 kg 76.929 kg Laboratory Last Values Urine Opiates Screen Not Detected (NotDetected) 06/04/23 16:28 Ur Oxycodone Screen Not Detected (NotDetected) 06/04/23 16:28 Urine Methadone Screen Not Detected (NotDetected) 06/04/23 16:28 Ur Barbiturates Screen Not Detected (NotDetected) 06/04/23 16:28 U Tricyclic Antidepress Not Detected (NotDetected) 06/04/23 16:28 Ur Phencyclidine Scrn Not Detected (NotDetected) 06/04/23 16:28 Ur Amphetamines Screen Not Detected (NotDetected) 06/04/23 16:28 U Methamphetamines Scrn Not Detected (NotDetected) 06/04/23 16:28 U Benzodiazepines Scrn Not Detected (NotDetected) 06/04/23 16:28 Urine Cocaine Screen Not Detected (NotDetected) 06/04/23 16:28 U Marijuana (THC) Screen Not Detected (NotDetected) 06/04/23 16:28 SARS-CoV-2 (PCR) Not Detected (Not Detectd) 06/04/23 18:20 06/05/23 09:05 IDENTIFYING DATA: Patient is a 72-year-old -[place] male who currently lives with his son and grandchildren, has 2 kids and is unemployed. HPI: Patient presented to the hospital on 06/04, as per EPS note, "Circle Beveler witnessed pt responding to internal stimuli and having a conversation with things that are not there. pt is loud, but is also hard of hearing. pt presents as hyperverbal and tangential. pt denies SI, HI, and hallucinations. However, pt continues to respond to internal stimuli. pt states that he is in the hospital because "My community mental health worker. What he said to me and how he said it. It made me mad, so I stormed out." pt then begins to go on a tangent about how he has a "medical staff specialist" who manages his money and he believes that this is illegal. Circle Beveler spoke with Mobile Crisis Unit to determine if pt is open with services and if further insight could be obtained as to what caused pick-up order as pick-up order states that pt "presents symptomatic." Case discussed with [facility] 17:16 - 17:33. pt does have a therapeutic case manager in [place]. pt has not been on any psychiatric medications for an extended period of time and their last documented injection was in 2020. pt presented to the courthouse for a hearing today and exhibited manic symptoms. pt was "delusional" and screaming at the spare fixer. pt was "erratic" and unable to be redirected. pt's treatment team state that they have worked with pt for a long time and have not seen him struggle like this in some time. pt was apparently screaming nonsensical things towards the spare fixer and there was some concern that pt could harm himself or others during this erratic behavior." Upon todays interview, states that his community mental health worker upset him very much, and that is why he is at the hospital. Patient states his mood is "fine", and that he has no depression or anxiety. Patient states he feels that he does not want to be around the community mental health worker or judges, because they threaten him, so it is good he is here, so he is away from them. Patient claims he sleeps well at night, and feels that the amount of sleep he gets is adequate, and that his appetite is just fine. Patient denies any suicidal or homicidal ideations intent or plan. At this time patient denies any auditory or visual hallucinations. Patient denies any flight of ideas racing thoughts and increased in goal directed behavior. Patient denies using drugs/alcohol/cigarettes. When patient was asked about his willingness to take any psychiatric medications, patient became angry, stated he refuses them, told chief writer that he did not need to be talked to like that, that it is disrespectful, and stormed out of the office, ending the interview. PAST PSYCHIATRIC HISTORY: Patient states that he has a history of schizoaffective disorder bipolar type. Patient denies any recent follow-up care, did see Dr Gutierrez in 2020. Patient has not been on psychiatric medications since 2020 hospitalized several times in the past. Patient has a history of jennifer ng on several different medications in the past including Lamictal, lithium, Prolixin, Abilify. States he was supossed to go to [facility] after court yesterday, but it did not turning lathe tender like that. Patient denies any history of suicide attempts in the past. PMH:As per ER note ALLERGIES: as per EMR CHEMICAL DEPENDENCY HISTORY: as per HPI FAMILY PSYCHIATRIC/SUBSTANCE USE HISTORY: denies SOCIAL HISTORY: Patient was born and raised in Patient was born and raised in [facility]. He states that he moved around a lot between [place] and [facility]. He states that he completed high school and did some college. He claims that he was in long-term in the past approximately 18 years ago for felonious assault. He has 2 kids and currently lives with his son in a house and is currently unemployed. MENTAL STATUS EXAM: General Appearance: Patient appears to be tall, thin, stated age is alert, difficult to redirect, and yet is irritable and agitated. Patient appears to have fair hygiene and grooming. Behavior: Patient is seated with agitated behavior. impulsive. Confrontational. Speech: Patient's speech is fluent and nonpressured. Loud, demanding. Mood/Affect: Patient reports their mood is "ok", affect is incongruent and irritable. Suicidality/Homicidality: Patient denies having any homicidal ideation intent or plan. Denies any suicidal ideations intent or plan Perceptions: Patient denies any visual hallucinations and denies any auditory hallucinations Though content/process: Patient rambles at times, tangential/circumstantial. Poor insight. Demanding. Memory and concentration: AOX3, grossly intact for the purposes of this session. Can spell "WORLD" backwards Judgment and insight: poor and impulsive STRENGTHS/WEAKNESSES: strength is that patient is resilient. Weakness is that patient has poor judgment and is impulsive INTELLECT: average IMPRESSIONS: Schizoaffective disorder, bipolar type Nicotine dependence PLAN: -Patient is admitted under involuntary status to MHU for stabilization of psychiatric symptoms and safety. Patient has not signed adult voluntary form or mmedication consent and is placed in patient's chart. A second certification was completed and along with petition will be filed for court. -Medications : Abilify 5mg po daily for mood stabilization, [place] ER 450mg po qhs for mood stabilization trazadone 100 mg qhs prn for sleep -Ativan and Haldol PRN for agitation/aggression -Patient was informed of the risks, benefits and side effects of the medication -Internal Medicine consult to perform medical evaluation and physical. -NRT - nicotine patch -SW on board for discharge planning. Encourage patient to participate in groups to work on coping skills. Will await deferral and court date. 06/05/23 13:12
[2023-06-05] MEDS: LITHIUM CARBONATE ER 450 MG TABLET.ER PO SCH (21:10)
[2023-06-05] MEDS: traZODone HCL 100 MG TAB PO PRN (22:28)
[2023-06-05] MEDS: LORazepam 1 MG TAB PO PRN (22:28)
--- NOTE | 2023-06-06 00:33 | CONS ---
CONSULTATION HISTORY OF PRESENT ILLNESS: He is admitted to the psychiatric landry for medical management consult. His vital signs, blood pressure 150/76, O2 saturation 98%, pulse 80, respiratory rate 16 to 18. He has a history of some COPD. He came in to the psych landry. He has somatic symptoms, for which he was admitted to the hospital. He has been following up with the [facility] people as an outpatient. He was placed on lithium and Abilify for mood stabilization and trazodone at night by the Psychiatry so far. HOME MEDICATIONS: 1. Cozaar 25 mg daily. 2. Lasix 20 mg daily. 3. Potassium chloride 10 mEq daily. 4. He takes vitamin D3 and B12. ALLERGIES: Thorazine. REVIEW OF SYSTEMS: A 14-point review of systems is otherwise negative. PAST MEDICAL HISTORY: Hypertension, COPD. PHYSICAL EXAMINATION: VITAL SIGNS: Blood pressure 140/72, O2 high 90s, temperature 98.1, pulse 66, respiratory rate 16 to 18. Exam fairly normal. Medically, he has hypertension, COPD, and dyslipidemia. Psychiatry will restart his home medications. Psychiatry will be treating for his mental health. Medically, he should be stable while in there from medical standpoint. Prognosis is guarded. MMODL / IJN: [id number] /
[2023-06-06] MEDS: haloperidoL 5 MG TAB PO PRN (06:48)
--- NOTE | 2023-06-06 10:04 | P.PN ---
Progress Note - Text Progress Note Date: 06/06/23 Interval History: Patient was seen today sitting in on group. He refused some of his medications yesterday however did take the Abilify yesterday and today. He appeared to be somewhat irritable prior to sba underwriter approaching him. He was agreeable to talk with sba underwriter briefly in his room. Patient continues to be impulsive, loud and demanding. Continues to be illogical at times and mumbling. He asked sba underwriter several times if he wanted to play "chest". He claims that he does not like sba underwriter and he does not want to speak with him today. He only answered some questions initially then proceeded to avoid speaking to sba underwriter and states that he does not want to speak with him any longer today and appears to be fairly upset and agitated. He did receive medications prn yesterday. MENTAL STATUS EXAM: General Appearance: Patient appears to be tall, thin, stated age is alert, difficult to redirect, and yet is irritable and agitated. Patient appears to have fair hygiene and grooming. Behavior: Patient is seated with agitated behavior. impulsive. Confrontational. Speech: Patient's speech is fluent and nonpressured. Loud, demanding. Mood/Affect: Patient reports their mood is "fine", affect is incongruent and irritable. Suicidality/Homicidality: Patient denies having any homicidal ideation intent or plan. Denies any suicidal ideations intent or plan Perceptions: Patient denies any visual hallucinations and denies any auditory hallucinations Though content/process: Patient rambles at times, tangential/circumstantial. Poor insight. Demanding. Memory and concentration: AOX3, grossly intact for the purposes of this session. Judgment and insight: poor and impulsive IMPRESSIONS: Schizoaffective disorder, bipolar type Nicotine dependence PLAN: -Patient is admitted under involuntary status to MHU for stabilization of psychiatric symptoms and safety. Patient has not signed adult voluntary form or mmedication consent and is placed in patient's chart. -Medications : increase Abilify 7.5mg po daily for mood stabilization, [place] ER 450mg po qhs for mood stabilization, trazadone 100 mg qhs prn for sleep -Ativan and Haldol PRN for agitation/aggression -NRT - nicotine patch -SW on board for discharge planning. Encourage patient to participate in groups to work on coping skills. Will await deferral and court date.
[2023-06-07] MEDS: ARIPiprazole 15 MG TAB PO SCH (08:35)
--- NOTE | 2023-06-07 11:28 | P.PN ---
Progress Note - Text Progress Note Date: 06/07/23 Interval History: Patient was seen today on his way to group. Patient seemed more cooperative to day. Patient stated he is "functioning as good as ever". Patient is going to groups, and interacting with peers on the unit. Patient is eating meals, and claims to get good sleep at night. Patient asked about discharge, teletypewriter operator told patient that the brake machine operator is coming today for the deferral process. Patient is taking medications, and denying any side effects from them. Denies AH/VH, denies SI/HI. patient did not sleep throughout the night, required haldol and ativan prn late last night. MENTAL STATUS EXAM: General Appearance: Patient appears to be tall, thin, stated age is alert, easier to redirect, Patient appears to have fair hygiene and grooming. Behavior: Patient is standing, without agitated behavior. impulsive. Confrontational. improving Speech: Patient's speech is fluent and nonpressured. Loud, demanding.improving Mood/Affect: Patient reports their mood is "fine", affect is incongruent and irritable. improving Suicidality/Homicidality: Patient denies having any homicidal ideation intent or plan. Denies any suicidal ideations intent or plan Perceptions: Patient denies any visual hallucinations and denies any auditory hallucinations Though content/process: Patient rambles at times, tangential/circumstantial, improving mildly. Demanding. Memory and concentration: AOX3, grossly intact for the purposes of this session. Judgment and insight: poor. improving mildly IMPRESSIONS: Schizoaffective disorder, bipolar type Nicotine dependence PLAN: -Patient is admitted under involuntary status to MHU for stabilization of psychiatric symptoms and safety. Patient has not signed adult voluntary form or mmedication consent and is placed in patient's chart. -Medications : increase Abilify 10mg po daily for mood stabilization, [place] ER 450mg po qhs for mood stabilization, increase trazadone 150 mg qhs for sleep -Ativan and Haldol PRN for agitation/aggression -NRT - nicotine patch -SW on board for discharge planning. Encourage patient to participate in groups to work on coping skills. Will await deferral and court date. Deferral is today, court date is 06/19
[2023-06-07] MEDS: traZODone HCL 50 MG TAB PO SCH (21:55)
[2023-06-08] MEDS: ARIPiprazole 10 MG TAB PO SCH (08:48)
--- NOTE | 2023-06-08 17:10 | P.PN ---
Progress Note - Text Progress Note Date: 06/08/23 Interval History: Patient is pleasant on approach while seen bedside and was agreeable to being interviewed by this instructional writer. He states that he is doing "good ". However, his thought processes becomes disorganized as he describes that there are "some people that aren't so good ". He talks about a prior "PhD doctor" and a campaign consultant that he believes are corrupt. He also describes that there are numerous illegal activities that he is aware of. Patient derails as he describes this paranoia but is able to be redirected. He reports having slept better last night and endorses eating well. He denies other concerns. Patient is taking medications, and denying any side effects from them. Denies A H/VH, denies SI/HI. MENTAL STATUS EXAM: General Appearance: Patient appears to be tall, thin, stated age is alert, easier to redirect, Patient appears to have fair hygiene and grooming. Behavior: Patient is seated, without agitated behavior Speech: Patient's speech is fluent and nonpressured. Mood/Affect: Patient reports their mood is "good", affect is congruent Suicidality/Homicidality: Patient denies having any homicidal ideation intent or plan. Denies any suicidal ideations intent or plan Perceptions: Patient denies any visual hallucinations and denies any auditory hallucinations Though content/process: Loose associations, paranoid delusions, tangential thoughts Memory and concentration: AOX3, grossly intact for the purposes of this session. Judgment and insight: poor. improving mildly IMPRESSIONS: Schizoaffective disorder, bipolar type Nicotine dependence PLAN: -Patient is admitted under involuntary status to MHU for stabilization of psychiatric symptoms and safety. Patient has not signed adult voluntary form or mmedication consent and is placed in patient's chart. -Medications : increase Abilify to 15mg po daily for mood stabilization, [place] ER 450mg po qhs for mood stabilization, trazadone 150 mg qhs for sleep -Ativan and Haldol PRN for agitation/aggression -NRT - nicotine patch -SW on board for discharge planning. Encourage patient to participate in groups to work on coping skills. Will await deferral and court date. Deferral is today, court date is 06/19
[2023-06-08] MEDS: ACETAMINOPHEN TAB 325 MG TAB PO PRN (21:04)
[2023-06-09] MEDS: ARIPiprazole 15 MG TAB PO SCH (08:43)
--- NOTE | 2023-06-09 18:29 | P.PN ---
Progress Note - Text Progress Note Date: 06/09/23 Interval History: Patient is pleasant on approach while seen in the interview room and was agree able to being interviewed by this creative writer. However, he becomes more agitated as the interview progresses. He begins describing a history of distrust with the system. He also describes several conspiracy ideas in a disorganized tangential manner. He has pressured speech as he states that the hospital is "tricking me". He states that there has been illegal activity. He also states that he has had doctors who "abuse the authority position ". He does not believe that he needs to be on medications but has been compliant with medications. Although the medications are discussed with the patient, he claims that he was not aware of the medications. He becomes agitated while discussing the medications and is able to be calmed down a bit with reassurance, education, and explanation. He is anxious to be on psychotropic medications. He reports having slept better last night and endorses eating well. He denies other concerns. Patient is taking medications, and was concerned about "neck twisting" with Abilify. He was agreeable with Bjorn to be given for this. Denies AH/VH, denies SI/HI. MENTAL STATUS EXAM: General Appearance: Patient appears to be tall, thin, stated age is alert, ea sier to redirect, Patient appears to have fair hygiene and grooming. No akathisia or dystonia visualized Behavior: Patient is seated, without agitated behavior Speech: Patient's speech is fluent and nonpressured. Mood/Affect: Patient reports their mood is "good", affect is congruent Suicidality/Homicidality: Patient denies having any homicidal ideation intent or plan. Denies any suicidal ideations intent or plan Perceptions: Patient denies any visual hallucinations and denies any auditory hallucinations Though content/process: Loose associations, paranoid delusions, tangential thoughts Memory and concentration: AOX3, grossly intact for the purposes of this session. Judgment and insight: poor. improving mildly IMPRESSIONS: Schizoaffective disorder, bipolar type Nicotine dependence PLAN: -Patient is admitted under involuntary status to MHU for stabilization of psychiatric symptoms and safety. Patient has not signed adult voluntary form or mmedication consent and is placed in patient's chart. -Medications : Abilify 15mg po daily for mood stabilization, [place] ER 450mg po qhs for mood stabilization, trazadone 150 mg qhs for sleep . Start Cogentin 0.5 mg daily for potential EPS -Ativan and Haldol PRN for agitation/aggression -NRT - nicotine patch -SW on board for discharge planning. Encourage patient to participate in groups to work on coping skills. Will await deferral and court date. Deferral is today, court date is 06/19
[2023-06-09] MEDS: BENZTROPINE MESYLATE 0.5 MG TAB PO SCH (18:37)
[2023-06-10] MEDS ORDERED: NITROGLYCERIN SL TABS 0.4 MG TAB SUBLINGUAL PRN (02:45)
--- NOTE | 2023-06-10 13:34 | P.CRDCN ---
History of Present Illness History of present illness: HISTORY OF PRESENT ILLNESS: This is a 72-year-old male with a past medical history significant for hypertension, schizoaffective disorder, nicotine dependence. Patient does not follow with a academic services professional. He states that he follows with the [facility] for the majority of his health care. We have been asked to see the patient in consultation for chest pain. Patient examined this morning in the mental health unit. Patient's nurse was present during examination. Patient states yesterday he received Abilify and shortly afterwards began to have chest discomfort. He states the pain was in the middle of his chest. He denied any radiation of the pain into his arm, jaw, or back. He denied feeling short of breath. He denied any nausea or vomiting. The patient states he has been prescribed Abilify in the past and has had side effects to it previously such as palpitations and restless legs. Patient denies any history of coronary artery disease. He is a current cigarette smoker. DIAGNOSTICS: - EKG reveals sinus mechanism with no signs of acute ischemia - Laboratory data: Troponin negative x 3 - Current home cardiac medications include amlodipine 10 mg daily, metoprolol tartrate 25 mg daily, losartan 25 mg daily, and Lasix 20 mg daily. REVIEW OF SYSTEMS: At the time of my exam: CONSTITUTIONAL: Denies fever or chills. HEENT: Denies blurred vision, vision changes, or eye pain. Denies hemoptysis CARDIOVASCULAR: Denies chest pain. Denies orthopnea. Denies PND. Denies palpitat ions RESPIRATORY: Denies shortness of breath. GASTROINTESTINAL: Denies abdominal pain. Denies nausea or vomiting. HEMATOLOGIC: Denies bleeding disorders. GENITOURINARY: Denies any blood in urine. SKIN: Denies pruitis. Denies rash. PHYSICAL EXAM: VITAL SIGNS: Reviewed. GENERAL: Well-developed in no acute distress. HEENT: Head is normocephalic. Pupils are equal, round. Sclerae anicteric. Mucous membranes of the mouth are moist. Neck supple. No JVD or thyromegaly LUNGS: Respirations even and unlabored. Lungs essentially clear to auscultation bilaterally. HEART: Regular rate and rhythm. S1 and S2 heard. ABDOMEN: Soft. Nondistended. Nontender. EXTREMITIES: Normal range of motion. No clubbing or cyanosis. Peripheral pulses intact. No lower extremity edema NEUROLOGIC: Awake and alert. Oriented x 3. ASSESSMENT: Chest pain, atypical, troponin negative x 3 Hypertension History of schizoaffective disorder Nicotine dependence PLAN: An acute coronary but has been ruled out Continue home cardiac medications Increase losartan to 50 mg daily for optimal blood pressure control Smoking cessation encouraged No further inpatient recommendations from a cardiac standpoint Once patient is discharged from the mental health unit, he may follow up in the office with Dr. Romero for 2D echocardiogram and doppler study We will sign off. Please reconsult if needed. Nurse practitioner note has been reviewed by physician. Signing provider agrees with the documented findings, assessment, and plan of care documented by CIRCULATION ASSISTANT as a scribe. Past Medical History Past Medical History: Hypertension History of Any Multi-Drug Resistant Organisms: None Reported Past Surgical History: Heart Catheterization Past Anesthesia/Blood Transfusion Reactions: No Reported Reaction Past Psychological History: Anxiety, Schizoaffective Disorder, Schizophrenia Smoking Status: Current every day smoker Past Alcohol Use History: None Reported Past Drug Use History: None Reported - Past Family History Family Family Medical History: Unable to Obtain Medications and Allergies Home Medications Medication Instructions Recorded Confirmed Type Loratadine [Claritin] 10 mg PO DAILY 30 Days tab 05/09/20 06/04/23 Rx Metoprolol Tartrate [Lopressor] 25 mg PO DAILY 30 Days tab 01/26/21 06/04/23 Rx amLODIPine [Norvasc] 10 mg PO DAILY 30 Days tab 01/26/21 06/04/23 Rx Cholecalciferol [Vitamin D3 (25 25 mcg PO DAILY 06/04/23 06/04/23 History Mcg = 1000 Iu)] Cyanocobalamin (Vitamin B-12) 1,000 mcg PO DAILY 06/04/23 06/04/23 History [Vitamin B-12] Furosemide [Lasix] 20 mg PO DAILY 06/04/23 06/04/23 History Losartan [Cozaar] 25 mg PO DAILY 06/04/23 06/04/23 History Potassium Chloride ER [K-Dur 10] 10 meq PO DAILY 06/04/23 06/04/23 History Allergies Allergy/AdvReac Type Severity Reaction Status Date / Time molindone [From Moban] Allergy Rash/Hives Verified 06/04/23 14:54 chlorpromazine AdvReac Hallucinati Verified 06/04/23 14:54 [From Thorazine] ons Physical Exam Vitals: Vital Signs Temp Pulse Resp BP Pulse Ox 06/10/23 08:50 84 142/71 06/10/23 06:32 97.6 F 79 16 147/70 96 06/10/23 03:05 59 L 18 142/67 97 06/10/23 02:40 76 18 170/74 Results Cardiac Enzymes 06/10/23 06/10/23 06/10/23 Range/Units 03:52 08:12 10:50 Troponin I <0.012 0.030 <0.012 (0.000-0.034) ng/mL Current Medications Generic Name Dose Route Start Last Admin Trade Name Freq PRN Reason Stop Dose Admin Acetaminophen 650 mg 06/04/23 20:45 06/08/23 21:04 Acetaminophen Tab 325 Mg Tab PO 650 mg Q4HR PRN Administration Mild Pain (Scale 1 to 3) Al Hydroxide/Mg Hydroxide 30 ml 06/04/23 20:45 Mag Hydrox/Al Hydrox/Simeth 30 Ml Cup PO Q4HR PRN GI Upset Amlodipine Besylate 10 mg 06/05/23 09:00 06/10/23 08:47 Amlodipine 10 Mg Tab PO 10 mg DAILY HE Administration Aripiprazole 15 mg 06/09/23 09:00 06/10/23 08:47 Aripiprazole 15 Mg Tab PO 15 mg DAILY HE Administration Aripiprazole 400 mg 06/11/23 09:00 Aripiprazole Im Syringe 400 Mg (No Charge) Pharmacy Stock IM 06/11/23 09:01 ONCE ONE Benztropine Mesylate 0.5 mg 06/09/23 18:30 06/10/23 08:48 Benztropine Mesylate 0.5 Mg Tab PO 0.5 mg DAILY HE Administration Cholecalciferol 25 mcg 06/05/23 09:00 06/10/23 08:48 Cholecalciferol 25 Mcg (1000 Iu) Tablet PO 25 mcg DAILY HE Administration Cyanocobalamin 1,000 mcg 06/05/23 09:00 06/10/23 08:48 Cyanocobalamin 500 Mcg Tab PO 1,000 mcg DAILY HE Administration Furosemide 20 mg 06/05/23 09:00 06/10/23 08:48 Furosemide 20 Mg Tab PO 20 mg DAILY HE Administration Haloperidol 5 mg 06/04/23 20:45 06/07/23 04:08 Haloperidol 5 Mg Tab PO 5 mg Q6HR PRN Administration Agitation or Acute Psychosis Haloperidol Lactate 5 mg 06/04/23 20:45 Haloperidol Lactate 5 Mg/Ml 1 Ml Vial IM Q6HR PRN Agitation or Acute Psychosis Ibuprofen 600 mg 06/04/23 20:45 Ibuprofen 600 Mg Tab PO Q6HR PRN Moderate Pain (Scale 4 to 6) [place] Carbonate 450 mg 06/05/23 21:00 06/09/23 21:09 [place] Carbonate Er 450 Mg Tablet.Er PO 450 mg HS HE Administration Loratadine 10 mg 06/05/23 09:00 06/10/23 08:48 Loratadine 10 Mg Tab PO 10 mg DAILY HE Administration Lorazepam 1 mg 06/04/23 20:45 06/07/23 21:55 Lorazepam 1 Mg Tab PO 1 mg Q6HR PRN Administration Agitation or Acute Anxiety Lorazepam 1 mg 06/04/23 20:45 Lorazepam 2 Mg/Ml Inj IM Q6HR PRN Agitation or Acute Anxiety Losartan Potassium 25 mg 06/05/23 09:00 06/10/23 08:48 Losartan 25 Mg Tab PO 25 mg DAILY HE Administration Magnesium Hydroxide 2,400 mg 06/04/23 20:45 Magnesium Hydroxide 2,400 Mg/30 Ml Cup PO DAILY PRN Constipation Metoprolol Tartrate 25 mg 06/05/23 09:00 06/10/23 08:48 Metoprolol Tartrate 25 Mg Tab PO 25 mg DAILY HE Administration Nitroglycerin 0.4 mg 06/10/23 02:45 Nitroglycerin Sl Tabs 0.4 Mg Tab SUBLINGUAL Q5M PRN Chest Pain Potassium Chloride 10 meq 06/05/23 09:00 06/10/23 08:50 Potassium Chloride Er 10 Meq Tab.Er.Prt PO 10 meq DAILY HE Administration Trazodone HCl 200 mg 06/10/23 21:00 Trazodone Hcl 100 Mg Tab PO HS HE
--- NOTE | 2023-06-10 13:58 | P.PN ---
Progress Note - Text Progress Note Date: 06/10/23 Interval History: Patient is seen in the hallway, and agreeable to speak with movie writer. Patient cl aims that today, he is feeling better. States he's "doing good" He has been playing chess with the nursing students that are on the unit today. Patient states his mood is good. Patient reported to nursing that he was having chest pains, cardiology will be consulted. EKG done. Talked to patient about transitioning onto CHAUDHRY, patient agreeable. He reports having slept better last night and endorses eating well. He denies other concerns. Patient is taking medications. Denies AH/VH, denies SI/HI. MENTAL STATUS EXAM: General Appearance: Patient appears to be tall, thin, stated age is alert, easi er to redirect, Patient appears to have fair hygiene and grooming. No akathisia or dystonia visualized Behavior: Patient is seated, without agitated behavior Speech: Patient's speech is fluent and nonpressured. Mood/Affect: Patient reports their mood is "good", affect is congruent Suicidality/Homicidality: Patient denies having any homicidal ideation intent or plan. Denies any suicidal ideations intent or plan Perceptions: Patient denies any visual hallucinations and denies any auditory hallucinations Though content/process: mildly improving Memory and concentration: AOX3, grossly intact for the purposes of this session. Judgment and insight: improving mildly IMPRESSIONS: Schizoaffective disorder, bipolar type Nicotine dependence PLAN: -Patient is admitted under involuntary status to MHU for stabilization of psychiatric symptoms and safety. Patient has not signed adult voluntary form -Medications : Abilify 15mg po daily for mood stabilization, [place] ER 450mg po qhs for mood stabilization, increase trazadone 200 mg qhs for sleep .Cogentin 0.5 mg daily for potential EPS, Abilify maintena 400mg IM on 06/11. Check lithium level 06/11 -Ativan and Haldol PRN for agitation/aggression -NRT - nicotine patch -SW on board for discharge planning. Encourage patient to participate in groups to work on coping skills. Patient deferred with his deputy attorney general. likely discharge saturday once patient is transitioned onto CHAUDHRY.
[2023-06-10] MEDS: traZODone HCL 100 MG TAB PO SCH (21:07)
[2023-06-11] MEDS: LOSARTAN 50 MG TAB PO SCH (08:59)
[2023-06-11] MEDS: ARIPiprazole IM SYRINGE 400 MG (NO CHARGE) PHARMACY STOCK IM ONE (10:22)
--- NOTE | 2023-06-11 11:56 | P.PN ---
Progress Note - Text Progress Note Date: 06/11/23 Interval History: Patient is seen in the hallway, and agreeable to speak with blog writer. Patient cl aims that today, he is feeling "more at ease and mellow". States he's "doing good". Patient states his mood is good, reports no anxiety. Appears to have an improvement in his affect today, appears to be brighter. Pt reports feeling relaxed. He reports having slept better last night and endorses eating well. He is going to groups and interacting with other patients. Pt received CHAUDHRY today. He denies other concerns. Patient is taking medications. Denies AH/VH, denies SI/HI. Pt reports no negative side effects at this time. MENTAL STATUS EXAM: General Appearance: Patient appears to be tall, thin, stated age is alert, easier to redirect, Patient appears to have fair hygiene and grooming. Behavior: Patient is seated, without agitated behavior Speech: Patient's speech is fluent and nonpressured. Mood/Affect: Patient reports their mood is "good", affect is congruent, improving Suicidality/Homicidality: Patient denies having any homicidal ideation intent or plan. Denies any suicidal ideations intent or plan Perceptions: Patient denies any visual hallucinations and denies any auditory hallucinations Though content/process: improving Memory and concentration: AOX3, grossly intact for the purposes of this session. Judgment and insight: improving IMPRESSIONS: Schizoaffective disorder, bipolar type Nicotine dependence PLAN: -Patient is admitted under involuntary status to MHU for stabilization of psychiatric symptoms and safety. Patient has not signed adult voluntary form -Medications : Abilify 15mg po daily for mood stabilization, [place] ER 450mg po qhs for mood stabilization, trazadone 200 mg qhs for sleep .Cogentin 0.5 mg daily for potential EPS, Abilify maintena 400mg IM given on 06/11, next dose will be due on 07/08. -Ativan and Haldol PRN for agitation/aggression -NRT - nicotine patch -SW on board for discharge planning. Encourage patient to participate in groups to work on coping skills. Patient deferred with his estate attorney. Discharge planned for tomorrow.
[2023-06-12 07:01] VITALS: RESP 16; TEMP 97.6
[2023-06-12 08:00] VITALS: BP 139/70; PULSE 75
--- NOTE | 2023-06-12 10:27 | P.DS ---
Providers Date of admission: 06/04/23 20:42 Expected date of discharge: 06/12/23 Attending physician: Catalino Ballesteros MD Consults: 06/04/23 20:45 Consult Physician Routine Consulting Provider: Leonard Herndon Consult Reason/Comments: H&P and medical Do you want consulting provider notified?: Yes Primary care physician: Leonard Herndon - Discharge Diagnosis(es) (1) Nicotine dependence Current Visit: No Status: Chronic Priority: Medium (2) Schizoaffective disorder, bipolar type Current Visit: Yes Status: Acute Priority: High Hospital Course: Admission HPI: Admission note was completed by fiction writer "Patient presented to the hospital on 06/04, as per EPS note, "Supervisor Pipe Finishing witnessed pt responding to internal stimuli and having a conversation with things that are not there. pt is loud, but is also hard of hearing. pt presents as hyperverbal and tangential. pt denies SI, HI, and hallucinations. However, pt continues to respond to internal stimuli. pt states that he is in the hospital because "My cable splicer apprentice. What he said to me and how he said it. It made me mad, so I stormed out." pt then begins to go on a tangent about how he has a "music teacher" who manages his money and he believes that this is illegal. Supervisor Pipe Finishing spoke with Mobile Crisis Unit to determine if pt is open with services and if further insight could be obtained as to what caused pick-up order as pick-up order states that pt "presents symptomatic."Case discussed with [facility] 17:16 - 17:33. pt does have a correctional counselor/case manager in [place]. pt has not been on any psychiatric medications for an extended period of time and their last documented injection was in 2020. pt presented to the courthouse for a hearing today and exhibited manic symptoms. pt was "delusional" and screaming at the judge's clerk. pt was "erratic" and unable to be redirected. pt's treatment team state that they have worked with pt for a long time and have not seen him struggle like this in some time. pt was apparently screaming nonsensical things towards the judge's clerk and there was some concern that pt could harm himself or others during this erratic behavior." Upon todays interview, states that his cable splicer apprentice upset him very much, and that is why he is at the hospital. Patient states his mood is "fine", and that he has no depression or anxiety. Patient states he feels that he does not want to be around the cable splicer apprentice or judges, because they threaten him, so it is good he is here, so he is away from them. Patient claims he sleeps well at night, and feels that the amount of sleep he gets is adequate, and that his appetite is just fine. Patient denies any suicidal or homicidal ideations intent or plan. At this time patient denies any auditory or visual hallucinations. Patient denies any flight of ideas racing thoughts and increased in goal directed behavior. Patient denies using drugs/alcohol/cigarettes. When patient was asked about his willingness to take any psychiatric medications, patient became angry, stated he refuses them, told fiction writer that he did not need to be talked to like that, that it is disrespectful, and stormed out of the office, ending the interview." Hospital course: Upon admission to the unit patient was admitted involuntarily on a petition and certificate and a second certificate was completed and faxed with the courts. Patient ended up signing a deferral with the defense attorney and agreeing to treatment. Patient was initially bizarre, loud and agitated however with time and treatment he eventually got along well with other patients on the unit and followed unit protocol. Patient was compliant with the medications and denied any side effects throughout hospital course. Patient was started on Abilify p.o. 15 mg daily for mood stabilization, patient was transitioned onto Abilify Maintenna 400 mg IM first dose given on 04/10, next dose will be due on 07/08. Patient was also started on lithium ER 450 mg p.o. nightly for mood stabilization, trazodone 200 mg nightly for sleep, Cogentin 0.5 mg daily for eps sx. patient spoke of his stressors and engaged in therapy both group and individual. Patient was also seen by medical team for history and physical exam. Throughout the course of the hospitalization patient gradually improved with regards to mood, anxiety, psychosis/mood stabilization, sleep and returned back to their baseline level of functioning. On the day of discharge patient denied any suicidal or homicidal ideations intent or plan denied any auditory or visual hallucinations. Patient endorsed wanting to live for his health and family. The patient denied any access to guns or weapons. Patient denied any paranoia and did not endorse any delusions. Patient does not have a significant history of substance abuse and was counseled on abstaining from all substances including alcohol and marijuana. Patient was also counseled on the medications and need for regular compliance and was encouraged to follow-up with their outpatient appointment for mental health and also for primary care. Prior to discharge a family meeting will be arranged by social science professor to answer any questions and ensure safety upon discharge. Mental status exam: General Appearance: Patient appears to be stated age is alert, pleasant, and cooperative. Patient is in no acute distress and has improved hygiene and grooming Behavior: Patient is calmly seated without any agitated behavior Speech: Patient's speech is fluent and nonpressured. Mood/Affect: Patient reports their mood is "better", affect is congruent and euthymic Suicidality/Homicidality: Patient denies having any suicidal or homicidal ideation intent or plan. Perceptions: Patient denies any auditory or visual hallucinations. Though content/process: There is no evidence of any delusional thought content and thought process is linear and goal-directed. Memory and concentration: AOX3, grossly intact for the purposes of this session. Can spell "WORLD" backwards correctly. Judgment and insight: improved with guarded prognosis Impression: Schizoaffective disorder, bipolar type Nicotine dependence Plan: -Continue with discharge today as patient has improved and stabilized psychiatrically and is not currently an imminent threat to himself and/or others. Patient will remain at chronically elevated risk for harm to self and/or others due to his impulsivity. -Continue medications: Continue Abilify p.o. 15 mg daily for mood stabilization for 13 more days then discontinue. Patient received Abilify Maintena 400 mg IM on 06/11, next dose will be due on 07/08. Trazodone 200 mg nightly for sleep, Cogentin 0.5 mg daily for EPS symptoms, lithium ER 450 mg p.o. nightly for mood stabilization -Patient was counseled on the need for medication compliance and appropriate follow-up at mental health and also primary care for medical issues. Patient verbalized understanding and agreed. -Social work to arrange for and conduct family meeting to ensure safety upon discharge and answer any questions/concerns. Social work also to arrange for patients follow up appointments with [facility] for psychiatric care along with follow up with primary care provider. -Patient counseled on abstaining from recreational drugs and marijuana and alcohol. Was informed/educated on the adverse effects on their physical and mental health. Patient verbally agreed and understood. -Patient was instructed to return to the hospital or seek immediate medical care if their psychiatric or medical symptoms do worsen or reoccur. Allergies Allergy/AdvReac Type Severity Reaction Status Date / Time molindone from Moban Allergy Rash/Hives Verified 06/04/23 14:54 chlorpromazine AdvReac Hallucinati Verified 06/04/23 14:54 From Thorazine ons Laboratory Results Troponin I <0.012 ng/mL (0.000-0.034) 06/11/23 11:35 Urine Opiates Screen Not Detected (NotDetected) 06/04/23 16:28 Ur Oxycodone Screen Not Detected (NotDetected) 06/04/23 16:28 Urine Methadone Screen Not Detected (NotDetected) 06/04/23 16:28 Ur Barbiturates Screen Not Detected (NotDetected) 06/04/23 16:28 U Tricyclic Antidepress Not Detected (NotDetected) 06/04/23 16:28 Ur Phencyclidine Scrn Not Detected (NotDetected) 06/04/23 16:28 Ur Amphetamines Screen Not Detected (NotDetected) 06/04/23 16:28 U Methamphetamines Scrn Not Detected (NotDetected) 06/04/23 16:28 U Benzodiazepines Scrn Not Detected (NotDetected) 06/04/23 16:28 [place] 0.4 mmol/L 06/11/23 09:04 Urine Cocaine Screen Not Detected (NotDetected) 06/04/23 16:28 U Marijuana (THC) Screen Not Detected (NotDetected) 06/04/23 16:28 SARS-CoV-2 (PCR) Not Detected (Not Detectd) 06/04/23 18:20 Vital Signs Temp 97.6 F 06/12/23 06:33 Pulse 75 06/12/23 07:58 Resp 16 06/12/23 06:33 BP 139/70 06/12/23 07:58 Pulse Ox 96 06/10/23 06:32 FiO2 Patient Condition at Discharge: Stable Plan - Discharge Summary Discharge Rx Participant: Yes New Discharge Prescriptions: New Benztropine Mesylate [Cogentin] 0.5 mg PO DAILY 14 Days #14 tab ARIPiprazole [Abilify] 15 mg PO DAILY 13 Days #13 tab ARIPiprazole IM [Abilify Maintena] 400 mg IM QMONTHLY #1 each traZODone HCL [Desyrel] 200 mg PO HS 30 Days #60 tab [place] Carbonate ER [Lithobid] 450 mg PO HS 30 Days #30 tab Continue Loratadine [Claritin] 10 mg PO DAILY 30 Days tab Cyanocobalamin (Vitamin B-12) [Vitamin B-12] 1,000 mcg PO DAILY Losartan [Cozaar] 25 mg PO DAILY Potassium Chloride ER [K-Dur 10] 10 meq PO DAILY Metoprolol Tartrate [Lopressor] 25 mg PO DAILY 30 Days tab amLODIPine [Norvasc] 10 mg PO DAILY 30 Days tab Cholecalciferol [Vitamin D3 (25 Mcg = 1000 Iu)] 25 mcg PO DAILY Furosemide [Lasix] 20 mg PO DAILY 30 Days #30 tab Discharge Medication List Loratadine [Claritin] 10 mg PO DAILY 30 Days tab 05/09/20 [Rx] Metoprolol Tartrate [Lopressor] 25 mg PO DAILY 30 Days tab 01/26/21 [Rx] amLODIPine [Norvasc] 10 mg PO DAILY 30 Days tab 01/26/21 [Rx] Cholecalciferol [Vitamin D3 (25 Mcg = 1000 Iu)] 25 mcg PO DAILY 06/04/23 [History] Cyanocobalamin (Vitamin B-12) [Vitamin B-12] 1,000 mcg PO DAILY 06/04/23 [History] Losartan [Cozaar] 25 mg PO DAILY 06/04/23 [History] Potassium Chloride ER [K-Dur 10] 10 meq PO DAILY 06/04/23 [History] ARIPiprazole IM [Abilify Maintena] 400 mg IM QMONTHLY #1 each 06/12/23 [Rx] ARIPiprazole [Abilify] 15 mg PO DAILY 13 Days #13 tab 06/12/23 [Rx] Benztropine Mesylate [Cogentin] 0.5 mg PO DAILY 14 Days #14 tab 06/12/23 [Rx] Furosemide [Lasix] 20 mg PO DAILY 30 Days #30 tab 06/12/23 [Rx] [place] Carbonate ER [Lithobid] 450 mg PO HS 30 Days #30 tab 06/12/23 [Rx] traZODone HCL [Desyrel] 200 mg PO HS 30 Days #60 tab 06/12/23 [Rx] Follow up Appointment(s)/Referral(s): [facility] [Outside] - 06/18/23 3:00 pm (06/18/2023 3:00PM - 4:00PM ROSALIO DAVILA 06/25/2023 9:00AM - 10:00AM NILTON ANGULO ) Isaías Romero DO [STAFF PHYSICIAN] - 1 Week Leonard Herndon MD [Primary Care Provider] - 1-2 days Activity/Diet/Wound Care/Special Instructions: Avoid the use of street drugs and alcohol. Take all medications as prescribed. When you are in need of refills on your medications, please contact your medical provider and/or outpatient psychiatrist/provider to have this done. Please go to your scheduled outpatient appointment for aftercare treatment. If symptoms return or become worse, call the crisis line at and/or go to the nearest emergency room for evaluation. National Suicide Hotline 308. Discharge Disposition: HOME SELF-CARE
== END 2023-06-12 16:00 | disposition home or self-care (01) | DRG 885 ==
LOC: EEVIPCON 14:44 → EC 14:44 → 3MHU 20:42
PROVIDERS: ADMIT Psychiatry & Neurology Psychiatry; ATTEND Psychiatry & Neurology Psychiatry
DX: F25.0 Schizoaffective disorder, bipolar type (principal); E78.5 Hyperlipidemia, unspecified; J44.9 Chronic obstructive pulmonary disease, unspecified; I10 Essential (primary) hypertension; Z11.52 Encounter for screening for COVID-19; R07.89 Other chest pain; H91.90 Unspecified hearing loss, unspecified ear; F17.210 Nicotine dependence, cigarettes, uncomplicated; Z71.6 Tobacco abuse counseling; Z79.899 Other long term (current) drug therapy; Z71.41 Alcohol abuse counseling and surveillance of alcoholic; Z71.51 Drug abuse counseling and surveillance of drug abuser; Z88.8 Allergy status to other drugs, medicaments and biological substances
CPT/HCPCS: 80178; 80306; 82075; 84484; 87635; 93005; 99285

== ENCOUNTER → 2024-04-10 | Outpatient (CLI) | payer MEDICARE, OTHER ==
--- NOTE | 2024-04-13 14:28 | US ---
EXAMINATION TYPE: US prostate transrectal DATE OF EXAM: 04/10/2024 COMPARISON: 06/15/2022 CLINICAL INDICATION: Male, 73 years old with history of R97.20 ELEVATED PSA; elevated PSA 15.1 TECHNIQUE: Grayscale and color Doppler imaging of the prostate gland. This examination was performed using the transrectal probe. EXAM MEASUREMENTS: Gland Size: 3.1 x 2.6 x 5.0 cm Volume: 21.53 Predicted PSA: 2.5 Actual PSA (if available):15.1 Normal sonographic appearance of the prostate gland. No masses identified no lymphadenopathy. IMPRESSION: 1. No suspicious masses visualized. 2. Note that prostate MRI is a more sensitive exam for the detection of clinically significant prost ate adenocarcinoma. Predicted PSA = volume x 0.12 ng/ml Calculated Volume = 0.5236 x L x W x [facility], , 04/10/2024 3:38 PM
== END | disposition home or self-care (01) ==
LOC: RADUSWWP 09:04
PROVIDERS: ATTEND Family Medicine
DX: R97.20 Elevated prostate specific antigen [PSA] (principal)
CPT/HCPCS: 76872

== ENCOUNTER 2024-04-24 08:56 | Emergency (ER) | payer MEDICARE, OTHER ==
--- NOTE | 2024-04-24 09:42 | ED ---
General Adult HPI - General Chief complaint: Psychiatric Symptoms Stated complaint: petition, mental health Time Seen by Provider: 04/24/24 09:15 Source: patient, family, RN notes reviewed Mode of arrival: ambulatory Limitations: altered mental status - History of Present Illness Initial comments: Patient is a 73-year-old male with history of bipolar schizophrenia and postmenstrual disorder presented to the emergency department with son. Patient states he feels fine and has no complaints. Patient states he has been taking his medication. Patient denies hallucinations. Patient denies suicidal or homicidal thoughts. Patient states he has been sleeping normally and eating normally. Son is concerned that patient has been off his psychiatric medication for the past month. He states patient has not been sleeping and not been eating well. He is concerned that patient is becoming more agitated. - Related Data Home Medications Medication Instructions Recorded Confirmed Cholecalciferol [Vitamin D3 (25 25 mcg PO DAILY 06/04/23 06/04/23 Mcg = 1000 Iu)] Cyanocobalamin (Vitamin B-12) 1,000 mcg PO DAILY 06/04/23 06/04/23 [Vitamin B-12] Losartan [Cozaar] 25 mg PO DAILY 06/04/23 06/04/23 Potassium Chloride ER [K-Dur 10] 10 meq PO DAILY 06/04/23 06/04/23 Previous Rx's Medication Instructions Recorded Loratadine [Claritin] 10 mg PO DAILY 30 Days tab 05/09/20 Metoprolol Tartrate [Lopressor] 25 mg PO DAILY 30 Days tab 01/26/21 amLODIPine [Norvasc] 10 mg PO DAILY 30 Days tab 01/26/21 ARIPiprazole IM [Abilify Maintena] 400 mg IM QMONTHLY #1 each 06/12/23 ARIPiprazole [Abilify] 15 mg PO DAILY 13 Days #13 tab 06/12/23 Benztropine Mesylate [Cogentin] 0.5 mg PO DAILY 14 Days #14 tab 06/12/23 Furosemide [Lasix] 20 mg PO DAILY 30 Days #30 tab 06/12/23 [place] Carbonate ER [Lithobid] 450 mg PO HS 30 Days #30 tab 06/12/23 traZODone HCL [Desyrel] 200 mg PO HS 30 Days #60 tab 06/12/23 Allergies Allergy/AdvReac Type Severity Reaction Status Date / Time molindone [From Moban] Allergy Rash/Hives Verified 04/24/24 09:01 chlorpromazine AdvReac Hallucinati Verified 04/24/24 09:01 [From Thorazine] ons Review of Systems ROS Statement: Those systems with pertinent positive or pertinent negative responses have been documented in the HPI. ROS Other: All systems not noted in ROS Statement are negative. Constitutional: Denies: fever Eyes: Denies: eye pain ENT: Denies: ear pain Respiratory: Denies: cough Cardiovascular: Denies: chest pain Endocrine: Denies: fatigue Gastrointestinal: Denies: abdominal pain Psychiatric: Reports: as per HPI Past Medical History Past Medical History: Hypertension History of Any Multi-Drug Resistant Organisms: None Reported Past Surgical History: Heart Catheterization Past Anesthesia/Blood Transfusion Reactions: No Reported Reaction Past Psychological History: Anxiety, Schizoaffective Disorder, Schizophrenia Smoking Status: Current every day smoker Past Alcohol Use History: None Reported Past Drug Use History: None Reported - Past Family History Family Family Medical History: Unable to Obtain General Exam Limitations: altered mental status General appearance: alert, in no apparent distress Head exam: Present: normocephalic Eye exam: Present: normal appearance Neck exam: Present: normal inspection Respiratory exam: Present: normal lung sounds bilaterally Cardiovascular Exam: Present: regular rate, normal rhythm GI/Abdominal exam: Present: soft. Absent: tenderness Extremities exam: Present: normal inspection Neurological exam: Present: alert Psychiatric exam: Present: agitated (Patient is mildly agitated) Skin exam: Present: normal color Course Vital Signs 04/24/24 04/24/24 04/24/24 09:01 09:08 11:08 Temperature 97.9 F Pulse Rate 70 110 H 86 Respiratory 18 20 20 Rate Blood Pressure 166/80 110/60 160/80 O2 Sat by Pulse 100 98 98 Oximetry Medical Decision Making - Medical Decision Making Was pt. sent in by a medical professional or institution (, PA, TITLE I DIRECTOR, urgent care, hospital, or group home...) When possible be specific @ -No Did you speak to anyone other than the patient for history (EMS, parent, family, police, friend...)? What history was obtained from this source @ -Son is present and provides majority of history as patient is reluctant to Did you review nursing and triage notes (agree or disagree)? Why? @ -I reviewed and agree with nursing and triage notes Were old charts reviewed (outside hosp., previous admission, EMS record, old EKG, old radiological studies, urgent care reports/EKG's, group home records)? Report findings @ -No old charts were reviewed Differential Diagnosis (chest pain, altered mental status, abdominal pain women, abdominal pain men, vaginal bleeding, weakness, fever, dyspnea, syncope, headache, dizziness, GI bleed, back pain, seizure, CVA, palpatations, mental health, musculoskeletal)? @ -Differential Mental Health Depression, anxiety, bipolar, psychosis, schizophrenia, borderline personality, situational depression, adjustment disorder, behavioral disorder, brain tumor, malingering, substance abuse, encephalopathy, medication reaction, dementia, hypothyroidism, degenerative neurologic disorder, lupus.... This is not meant to be all-inclusive list EKG interpreted by me (3pts min.). @ -As above X-rays interpreted by me (1pt min.). @ -None done CT interpreted by me (1pt min.). @ -None done U/S interpreted by me (1pt. min.). @ -None done What testing was considered but not performed or refused? (CT, X-rays, U/S, labs)? Why? @ -None What meds were considered but not given or refused? Why? @ -None Did you discuss the management of the patient with other professionals (professionals i.e. , PA, TITLE I DIRECTOR, lab, RT, psych nurse, social contact worker, animal feeder, teacher, aerospace engineer officer armament, renal case manager)? Give summary @ -Case discussed with social contact worker with mental health with plans for psychiatric admission Was smoking cessation discussed for >3mins.? @ -No Was critical care preformed (if so, how long)? @ -No Were there social determinants of health that impacted care today? How? (Homelessness, low income, unemployed, alcoholism, drug addiction, transportation, low edu. Level, literacy, decrease access to med. care, shelter, rehab)? @ -No Was there de-escalation of care discussed even if they declined (Discuss DNR or withdrawal of care, Hospice)? DNR status @ -No What co-morbidities impacted this encounter? (DM, HTN, Smoking, COPD, CAD, Cancer, CVA, ARF, Chemo, Hep., AIDS, mental health diagnosis, sleep apnea, morbid obesity)? @ -History of bipolar schizophrenia as well as PTSD Was patient admitted / discharged? Hospital course, mention meds given and route, prescriptions, significant lab abnormalities, going to OR and other pertinent info. @ -Patient presents off his medications, not sleeping and not eating well. Patient is mildly agitated that does increase. Patient seen by mental health with plans for psychiatric admission. Undiagnosed new problem with uncertain prognosis? @ -No Drug Therapy requiring intensive monitoring for toxicity (Heparin, Nitro, Insulin, Cardizem)? @ -No Were any procedures done? @ -No Diagnosis/symptom? @ -Schizophrenia Acute, or Chronic, or Acute on Chronic? @ -Acute Uncomplicated (without systemic symptoms) or Complicated (systemic symptoms)? @ -Default Side effects of treatment? @ -No Exacerbation, Progression, or Severe Exacerbation? @ -No Poses a threat to life or bodily function? How? (Chest pain, USA, SC, pneumonia, PE, COPD, DKA, ARF, appy, cholecystitis, CVA, Diverticulitis, Homicidal, Suicidal, threat to staff... and all critical care pts) @ -No - Lab Data Lab Results 04/24/24 Range/Units 11:13 Urine Opiates Screen Not Detected (NotDetected) Ur Oxycodone Screen Not Detected (NotDetected) Urine Methadone Screen Not Detected (NotDetected) Ur Barbiturates Screen Not Detected (NotDetected) U Tricyclic Antidepress Not Detected (NotDetected) Ur Phencyclidine Scrn Not Detected (NotDetected) Ur Amphetamines Screen Not Detected (NotDetected) U Methamphetamines Scrn Not Detected (NotDetected) U Benzodiazepines Scrn Not Detected (NotDetected) Urine Cocaine Screen Not Detected (NotDetected) U Marijuana (THC) Screen Not Detected (NotDetected) Disposition Clinical Impression: Schizophrenia Disposition: TRANSFER TO PSYCH HOSP/UNIT Is patient prescribed a controlled substance at d/c from ED?: No Referrals: Leonard Herndon MD [Primary Care Provider] - 1-2 days Time of Disposition: 12:09
[2024-04-24 11:37] LABS: Opiate Screen,Urine Not Detected (NotDetected); Phencyclidine Screen,Urine Not Detected (NotDetected); Urn Cannabinoid Scrn Not Detected (NotDetected)
[2024-04-24 11:38] LABS: Amphetamine Screen,Urine Not Detected (NotDetected); Barbiturate Screen,Urine Not Detected (NotDetected); Benzodiazepines Screen,Urine Not Detected (NotDetected); Cocaine Screen,Urine Not Detected (NotDetected); Methadone Screen, Urine Not Detected (NotDetected); Oxycodone Screen, Urine Not Detected (NotDetected); Tricyclic Antidepressant,Urine Not Detected (NotDetected)
[2024-04-24] MEDS: ZIPRASIDONE 20 MG VIAL IM STA ×3 (12:01→23:11)
[2024-04-24] MEDS: CHOLECALCIFEROL 25 MCG (1000 IU) TABLET PO SCH (22:33)
[2024-04-24] MEDS: amLODIPine 10 MG TAB PO SCH (22:33)
[2024-04-24] MEDS: METOPROLOL TARTRATE 25 MG TAB PO SCH (22:33)
[2024-04-24] MEDS: CYANOCOBALAMIN 500 MCG TAB PO SCH (22:33)
[2024-04-24] MEDS: LOSARTAN 50 MG TAB PO SCH (22:33)
[2024-04-25] MEDS: ZIPRASIDONE 20 MG VIAL IM STA ×2 (05:19→10:35)
[2024-04-25] MEDS: LORazepam 2 MG/ML INJ IM STA ×2 (05:19→13:52)
[2024-04-25 12:55] LABS: HCT 42.9 % (39.0-53.0); MCH 31.2 pg (25.0-35.0); MCHC 32.6 g/dL (31.0-37.0); MCV 95.6 fL (80.0-100.0); Mean Platelet Volume 7.7; Platelet Count 189 k/uL (150-450); RBC 4.49 m/uL (4.30-5.90); RDW 13.7 % (11.5-15.5); WBC 8.9 k/uL (3.8-10.6)
[2024-04-25 13:06] LABS: ALT 18 U/L (4-49); AST 26 U/L (17-59); African American GFR (CKD) >90 (>60 ml/min/1.73 sqM); Albumin 4.3 g/dL (3.5-5.0); Alkaline Phosphatase 77 U/L (38-126); Anion Gap 10 mmol/L; Blood Urea Nitrogen 15 mg/dL (9-20); Calcium 9.8 mg/dL (8.4-10.2); Carbon Dioxide 23 mmol/L (22-30); Chloride 110 mmol/L (98-107); Glucose 110 mg/dL (74-99); Non-African American GFR(CKD) 83 (>60 ml/min/1.73 sqM); Sodium 143 mmol/L (137-145); Total Bilirubin 0.1 mg/dL (0.2-1.3); Total Protein 6.8 g/dL (6.3-8.2)
[2024-04-25 13:09] LABS: Amphetamine Screen,Urine Not Detected (NotDetected); Barbiturate Screen,Urine Not Detected (NotDetected); Benzodiazepines Screen,Urine Detected (NotDetected); Cocaine Screen,Urine Not Detected (NotDetected); Methadone Screen, Urine Not Detected (NotDetected); Opiate Screen,Urine Not Detected (NotDetected); Oxycodone Screen, Urine Not Detected (NotDetected); Phencyclidine Screen,Urine Not Detected (NotDetected); Tricyclic Antidepressant,Urine Not Detected (NotDetected); Urn Cannabinoid Scrn Not Detected (NotDetected)
[2024-04-25] MEDS: NICOTINE 21MG/24HR PATCH TRANSDERM STA (13:17)
[2024-04-25] MEDS: HALOPERIDOL LACTATE 5 MG/ML 1 ML VIAL IM STA (14:09)
[2024-04-25 15:08] LABS: Appearance,Urine Clear (Clear); Bilirubin,Urine Negative (Negative); Blood,Urine Negative (Negative); Color,Urine Colorless; Glucose,Urine (UA) Negative (Negative); Ketones,Urine Negative (Negative); Leukocyte Esterase,Urine Negative (Negative); Nitrite,Urine Negative (Negative); PH, Urine 5.5 (5.0-8.0); Protein,Urine Negative (Negative); Urobilinogen,Urine <2.0 mg/dL (<2.0)
[2024-04-26 01:58] VITALS: RESP 16
[2024-04-26 12:06] VITALS: BP 138/72; PULSE 70; TEMP 98.6
== END 2024-04-26 11:30 ==
LOC: EC 08:56
DX: F20.9 Schizophrenia, unspecified (principal); F43.10 Post-traumatic stress disorder, unspecified; F17.200 Nicotine dependence, unspecified, uncomplicated; Z88.8 Allergy status to other drugs, medicaments and biological substances
CPT/HCPCS: 82075; 36415; 80053; 85027; 81003; 80306 ×2; 87636; 99285; 96372 ×4; S4990; J2060; J1630; J3486 ×2